=== PATIENT | male | born 1945 | race Caucasian/White ===

== ENCOUNTER 2017-09-24 08:19 | Emergency (ER) | payer MEDICARE, BC ==
--- OUTSIDE RECORDS SUMMARY | 2017-09-24 08:33 | XMS REPORT ---
:1945 External Reference #:[id number] Author Organization [facility] Address [address] [place] [address] Phone [phone] Care Team Providers Name Role Phone Mari Tolentino, N.P. 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 Primary Care Physician Unavailable Payers Type Date Identification Numbers Payment Provider Subscriber Medicare Primary Policy Number: [id number] Medicare Ethan Nieves PayID: [id number] [place] [address] Problems Date Description Provider Status Onset: 09/14/2017 Urge incontinence of urine Max Tam MD Active Onset: 09/14/2017 Nocturia Max Tam MD Active Onset: 09/14/2017 Raised prostate specific antigen Max Tam MD Active Family History Date Family Member(s) Problem(s) Comments Father Diabetes Mellitus I Social History Type Date Description Comments Marital Status Cigarette Use current cigarette smoker ETOH Use Occ Alcohol Intake Daily Caffeine Consumes on average 2 cups of coffee per day Daily Caffeine Consumes on average 2 cups of tea per day Allergies, Adverse Reactions, Alerts Date Description Reaction Status Severity Comments 09/14/2017 Baclofen active Per pt he stated he gets loopy 09/14/2017 Clarithromycin active unknown 09/14/2017 Moxifloxacin active unknown Medications Medication Date Status Form Strength Qnty SIG Indications Ordering Provider Aspirin / Active Tablets 325mg take 1 tablet Unknown 0000 (325 mg total) by mouth daily Plavix / Active Tablets 75mg 1 by mouth Unknown 0000 every day Prozac / Active Capsules 20mg 1 by mouth Unknown 0000 every day Super B Complex / Active Tablets 1 by mouth Unknown Maxi 0000 every day Vitamin D-400 / Active Tablets 400Unit daily Unknown 0000 Zinc 00/ Active Tablets 30mg daily Unknown 0000 [place]-3 / Active Capsules 1000mg 1-2 by mouth Unknown 0000 every day Acetaminophen / Active Tablets 650mg take 2 twice Unknown ER 0000 ER daily as needed Colace / Active Capsules 100mg 1 by mouth Unknown 0000 twice a day as needed for constipation Senna Laxative / Active Tablets 8.6mg 2 by mouth at Unknown 0000 bedtime as needed for constipation [place]ylands Leg / Active 1 tablet can Unknown Cramps PM 0000 take at bedtime as needed for leg cramps Nicotine / Active Patches 7mg/24HR place 1 patch Unknown Transdermal 0000 24HR on the skin System Step 3 daily Miralax / Active Packet 3350NF mix with 4 to Unknown 0000 8 oz of water daily as needed for constipation Nystatin / Active Cream 308154Njp apply to Unknown 0000 t/GM rashy areas twice a day as needed for itching/pain Vital Signs Date Vital Result Comment 09/14/2017 Height 72 inches 6'0" Weight 163.00 lb Weight in kg's 73.937 BMI (Body Mass Index) 22.1 kg/m2 BP Systolic 101 mmHg BP Diastolic 73 mmHg Heart Rate 67 /min Respiratory Rate 16 /min Post Void Residual ml 83 Results Test Date Test Result H/L Range Note Laboratory test finding 09/14/2017 PSA Free <pending> PSA Total <pending> Laboratory test finding 06/23/2017 PSA Total 4.600 High 0.000-4.000 Laboratory test finding 02/21/2016 PSA Total 2.360 0.000-4.000 Procedures Date CPT Code Description Status 09/14/2017 90629 Bladder Scan, Post Voiding Residual Urine Completed Plan of Care 09/14/2017 - Max Tam,MDR97.20 Elevated prostate specific antigen [PSA ]New Labs:PSA FreePSA TotalComments:Mild PSA elevation. I reviewed PSA reports and Courtney Tolentino's office note today. Potential PSA rise, PSA 2.3 in February 2016 and 4.6 last June. 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 Will perform exam w/MARIA ISABEL when patient's strength has returned to some degree, evaluate in 4mo. PSA free/total was drawn today, repeat in 4mo.R35.1 VccfejyaE82.41 Urge incontinenceComments:Rare urge incontinence, no retention by bladder scan today.AllFollow up:4mo w/PA, PSA free/total prior
--- OUTSIDE RECORDS SUMMARY | 2017-09-24 08:33 | XMS REPORT ---
:1945 External Reference #:[id number] Author Organization [facility] 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 Primary Care Physician Unavailable Payers Type Date Identification Numbers Payment Provider Subscriber Medicare Primary Policy Number: [id number] Medicare Ethan Nieves PayID: [id number] [address] [place] [address] Medigap Part B Effective: 2015 Policy Number: BCBS [place] Ethan Nieves [id number] PayID: [id number] [address] [address] [place] [address] Problems Date Description Provider Status Onset: 09/14/2017 [...] Active Tablets 400Unit daily Unknown 0000 Zinc / Active Tablets 30mg daily Unknown 0000 [place]-3 / Active Capsules 1000mg 1-2 by mouth [...] needed for constipation Nystatin / Active Cream 339427Hpq apply to Unknown 0000 t/GM rashy areas twice a day as needed for itching/pain Vital Signs Date Vital Result Comment 09/16/2017 Height 72 inches 6'0" Weight 150.00 lb Weight in kg's 68.040 BMI (Body Mass Index) 20.3 kg/m2 BP Systolic 103 mmHg BP Diastolic 74 mmHg Heart Rate 87 /min 09/14/2017 Height 72 inches 6'0" Weight 163.00 lb Weight in kg's 73.937 BMI (Body Mass Index) 22.1 kg/m2 BP Systolic 101 mmHg BP Diastolic 73 mmHg Heart Rate 67 /min Respiratory Rate 16 /min Post Void Residual ml 83 Results Test Date Test Result H/L Range Note Laboratory test finding 09/14/2017 Free PSA 0.6 ng/mL Total Psa Only 6.20 ng/mL High 0.00-4.00 % PSA 9.677 1 Laboratory test finding 06/23/2017 PSA Total 4.600 High 0.000-4.000 Laboratory test finding 02/21/2016 PSA Total 2.360 0.000-4.000 1 % Free PSA Range Probability of Prostate Cancer 0 - 10% 56% 10 - 15% 28% 15 - 20% 20% 20 - 25% 16% >25% 8% The % free PSA is an aid in distinguishing prostate cancer from a benign prostate condition in men with a PSA btween 4 and 10 ng/mL and a negative digital rectal examination; however, a prostate biopsy is required for diagnosis of prostate cancer. (KLAUS 1998: 279: 8215-9231) Procedures Date CPT Code Description Status 09/14/2017 39138 Bladder Scan, Post Voiding Residual Urine Completed Encounters Type Date Location Provider CPT E/M Dx Office Visit 09/16/2017 10:00a [place]/ [facility]MELISSA Allison [address]376 R97.20 Urology Office Visit 09/14/2017 11:20a [place]/ [facility].Jimmie Cervantes [address] R97.20 Urology MD Yonatan R35.1 N39.41 Plan of Care Future Appointment(s):11/19/2017 11:40 am - Max Tam MD at [place]/ A[facility] Ekoixqg15/02/2018 11:00 am - Max Tam MD at [place]/ A[facility] Auyqzvu4510/21/2017 10:00 am - [place] [facility] [place] Axqimcf6211/03/2017 1 :20 pm - Max Tam MD at [place]/ A[facility] Jswwdhl72/17/2018 10:40 am - [facility] Christopher at [place]/ A[facility] Zvxukcr93/10/2018 10:00 am - [place] [facility] [place] Lhxykab4209/16/2017 - Lindsay Mccullough,PAR97.20 Elevated prostate specific antigen [PSA]Comments:Advised pt per Dr. Tam's last note that we need to wait on prostate biopsy until he is safe to come off his anticoagulation given his recent stroke. Patient and daughter voiced understanding. He questions his options if prostate cancer is present. Options discussed in great depth today including active surveillance, Androgen Deprivation Therapy, radiation, cryotherapy, brachytherapy and prostatectomy. They are aware we can't have a great discussion on which might be advisable for him until we have a biopsy result. He will discuss the possible need to stop anticoagulation with his neurologist at his appt in October and get their opinion on what might be a safe timeline for him. All questionsaddressed to patient's satisfaction.AllFollow up:Mid-Late Oct appt with Dr. Terry to talk re options, psa total prior Late Oct-Nov appt for TRUS bx Please add Radha Giang (neuro) to DDCC Today's visit was over 30 minutes, over 50% of which involved face to face counseling regarding the following diagnosis: above.
[2017-09-24 08:43] VITALS: BP 100/71
--- NOTE | 2017-09-24 08:55 | UC ---
Respiratory Complaint HPI - HPI Summary HPI Summary: 72 y/o male presents to the ED with cold-like symptoms for several weeks. Pt c/ o productive cough with brown sputum. Associated sx: severe, constant L side chest pain starting 2 days ago, nasal congestion. The pain in the L side chest is aggravated with deep breaths and coughs, worse today than yesterday. PMHx CVA in June 2017. Pt on blood thinners. No history of blood clots. Pt's daughter states the pt had some mild leg cramping several weeks ago that resolved with massaging. This is scribe Ed Slime documenting for attending Dr. Max Rouse. I, Dr. Reed, personally performed the services described in this documentation as scribed in my presence and it is both accurate and complete. - History of Current Complaint Chief Complaint: UCRespiratory Stated Complaint: COUGH CONGESTION Time Seen by Provider: 09/24/17 08:49 Hx Obtained From: Patient Onset/Duration: Lasting Weeks Timing: Constant Pain Intensity: 5 Pain Scale Used: 0-10 Numeric Character: Cough: Productive - brown Aggravating Factors: Deep Breaths Alleviating Factors: Nothing Associated Signs And Symptoms: Positive: Nasal Congestion. Negative: Fever, Wheezing - Allergies/Home Medications Allergies/Adverse Reactions: Allergies Allergy/AdvReac Type Severity Reaction Status Date / Time baclofen Allergy confusion Verified 09/24/17 08:43 Home Medications: Home Medications Acetaminophen TAB* [Tylenol TAB*] 650 mg PO Q4H PRN 09/24/17 [History Confirmed 09/24/17] Aspirin TAB* [Aspirin 325 MG TAB*] 325 mg PO DAILY 09/24/17 [History Confirmed 09/24/17] Atorvastatin* [Lipitor*] 40 mg PO BEDTIME 09/24/17 [History Confirmed 09/24/17] Cholecalciferol (Vitamin D3) [D3] 400 unit PO DAILY 09/24/17 [History Confirmed 09/24/17] Clopidogrel TAB* [Plavix TAB*] 75 mg PO DAILY 09/24/17 [History Confirmed ] Docusate CAP* [Colace Cap*] 100 mg PO BID PRN 09/24/17 [History Confirmed ] Ezetimibe TAB* [Zetia TAB*] 10 mg PO BEDTIME 09/24/17 [History Confirmed ] FLUoxetine CAP* [PROzac CAP*] 20 mg PO DAILY 09/24/17 [History Confirmed ] Niacinamide [Niacin] 1,000 mg PO BEDTIME 09/24/17 [History Confirmed 09/24/17] Nicotine PATCH 7 MG/24 HR* 1 patch TRANSDERM DAILY PRN 09/24/17 [History Confirmed 09/24/17] Nystatin CREAM* 1 applic TOPICAL BID PRN 09/24/17 [History Confirmed 09/24/17] [place]-3 Fatty Acids/Fish Oil [[place] 3] 1 cap PO DAILY 09/24/17 [History Confirmed 09/24/17] Polyethylene Glycol 3350* [Miralax*] 17 gm PO DAILY PRN 09/24/17 [History Confirmed 09/24/17] Senna TAB* [Senokot TAB*] 2 tab PO BEDTIME PRN 09/24/17 [History Confirmed 09/24] Vitamin B Complex Vit C No.4 [Super B Complex] 150 mg PO DAILY 09/24/17 [ History Confirmed 09/24/17] Zinc Gluconate-Zinc Picolinate [Zinc] 30 mg PO DAILY 09/24/17 [History Confirmed 09/24/17] PMH/Surg Hx/FS Hx/Imm Hx Previously Healthy: No Endocrine History: Other Other Endocrine History: Negative: DM Cardiovascular History: Other Other Cardiovascular History: Negative: blood clots Neurological History: CVA - Surgical History Surgical History: None Surgery Procedure, Year, and Place: hernia - Family History Known Family History: Positive: Diabetes - father - Social History Alcohol Use: None Substance Use Type: None Smoking Status (MU): Never Smoked Tobacco Review of Systems Constitutional: Negative Skin: Negative Eyes: Negative ENT: Sinus Congestion Respiratory: Cough, Other - Negative: SOB Cardiovascular: Chest Pain - L side chest pain Gastrointestinal: Negative Genitourinary: Negative Motor: Negative Neurovascular: Negative Musculoskeletal: Negative Neurological: Negative Psychological: Negative All Other Systems Reviewed And Are Negative: Yes Physical Exam Triage Information Reviewed: Yes Appearance: Well-Appearing, No Pain Distress Vital Signs: Initial Vital Signs Temp 98 F 09/24/17 08:38 Pulse 77 09/24/17 08:38 Resp 16 09/24/17 08:38 BP 100/71 09/24/17 08:38 Pulse Ox 98 09/24/17 08:38 Vital Signs Reviewed: Yes ENT: Positive: Normal ENT inspection Neck: Positive: Supple, Nontender Respiratory: Positive: Lungs clear, Normal breath sounds, Other: - Cough Cardiovascular: Positive: RRR Abdomen Description: Positive: Nontender, Soft Bowel Sounds: Positive: Present Musculoskeletal: Positive: Strength Intact, ROM Intact, Other: - TTP L lateral ribs Neurological: Positive: Alert, Other: - R side hemiparesis, chronic Psychological: Positive: Age Appropriate Behavior Skin Exam: Normal Skin: Positive: Other - No rash UC Diagnostic Evaluation - Laboratory O2 Sat by Pulse Oximetry: 98 - Radiology Xray Interpretation: Positive (See Comments) - See course Radiology Interpretation Completed By: Radiologist Re-Evaluation - Re-Evaluation 1 Re-Evaluation Time: 21:45 Comment: Discuss XR, plan of care Respiratory Course/Dx - Course Course Of Treatment: CXR shwos Hyperinflated lung childers consistent with COPD. In the left lateral lung field there is ill-defined density which may represent pneumonia although underlying mass is not excluded. Follow-up exam is suggested. DISCUSSED X-RAY RESULTS WITH THE PATIENT AND HIS DAUGHTER TO INCLUDE THE POSSIBILITY OF AN UNDERLYING LUNG MASS. RX LEVAQUIN AND F/U PMD WITHIN ONE WEEK. RE IMAGE WITH CXR OR CHEST CT. GO TO ED IF WORSE. - Differential Dx/Diagnosis Provider Diagnoses: PNEUMONIA Discharge - Sign-Out/Discharge Documenting (check all that apply): Patient Departure - Discharge Plan Condition: Stable Disposition: HOME Prescriptions: Levofloxacin TAB* [Levaquin TAB*] 750 mg PO DAILY #7 tab Patient Education Materials: Community Acquired Pneumonia (ED) Referrals: Mari Tolentino NP [Primary Care Provider] - Additional Instructions: FOLLOW UP WITH YOUR DOCTOR WITHIN ONE WEEK. DISCUSS REPEAT IMAGING, A CHEST X-RAY OR CT, WITH YOUR DOCTOR TO ENSURE THE CHEST X-RAY FINDINGS IMPROVE. GO TO THE EMERGENCY DEPARTMENT FOR ANY WORSENING OF YOUR CONDITION OR QUESTIONS OR CONCERNS. - Billing Disposition and Condition Condition: STABLE Disposition: Home
--- NOTE | 2017-09-24 09:28 | RAD ---
Indication: Left-sided chest pain. 2 views of the chest are reviewed. Dual-energy PA views are reviewed. Comparison is made with previous exams dated May 29, 2002. Hyperinflated lung childers are noted. There is likely chronic interstitial disease noted. There is a Gildardo's a device overlying the left chest. In the mid left lateral lung field there is ill-defined density noted in the mid left lung field. This may represent pneumonia although underlying mass is not totally excluded. IMPRESSION: Hyperinflated lung childers consistent with COPD. In the left lateral lung field there is ill-defined density which may represent pneumonia although underlying mass is not excluded. Follow-up exam is suggested.
== END 2017-09-24 10:00 | disposition home or self-care (01) ==
LOC: UCEAST 08:19
DX: J18.9 Pneumonia, unspecified organism (principal); Z88.8 Allergy status to other drugs, medicaments and biological substances
CPT/HCPCS: 71046; 99202; G0463

== ENCOUNTER 2017-09-30 13:22 | Emergency (ER) | payer MEDICARE, BC ==
[2017-09-30 13:34] VITALS: BP 111/76
--- NOTE | 2017-09-30 14:21 | RAD ---
Indication: Cough, follow-up pneumonia. 2 views of the chest are reviewed and compared to previous exam dated September 24, 2017. A cardiac event monitor is in place. No mediastinal shift is noted. Hyperinflated lung childers are noted. Persistent airspace disease in the left midlung Field is unchanged from previous exam. CT of the chest should BE considered. IMPRESSION: Left midlung field infiltrate still persists.
--- NOTE | 2017-09-30 14:22 | UC ---
Respiratory Complaint HPI - HPI Summary HPI Summary: treated with Levaquin about 10 days ago ---patient continues with cough dark sputum and subjective SOB no fevers - History of Current Complaint Chief Complaint: UCRespiratory Stated Complaint: COUGH Time Seen by Provider: 09/30/17 13:51 Hx Obtained From: Patient Onset/Duration: Gradual Onset, Lasting Weeks, Still Present Timing: Constant Pain Intensity: 0 Character: Cough: Productive, Sputum Description: - bown Aggravating Factors: Nothing Alleviating Factors: Nothing Associated Signs And Symptoms: Positive: Pleuritic Chest Pain, URI - Allergies/Home Medications Allergies/Adverse Reactions: Allergies Allergy/AdvReac Type Severity Reaction Status Date / Time baclofen Allergy confusion Verified 09/30/17 13:34 clarithromycin Allergy Rash Verified 09/30/17 13:35 moxifloxacin Allergy Rash Verified 09/30/17 13:35 PMH/Surg Hx/FS Hx/Imm Hx Previously Healthy: No Endocrine History: Dyslipidemia Psychological History: Depression - Surgical History Surgical History: None Surgery Procedure, Year, and Place: hernia - Family History Known Family History: Positive: Diabetes - father - Social History Occupation: Retired Lives: With Family Alcohol Use: None Substance Use Type: None Smoking Status (MU): Former Smoker Review of Systems Constitutional: Negative Skin: Negative Eyes: Negative ENT: Negative Respiratory: Shortness Of Breath, Cough Cardiovascular: Negative Gastrointestinal: Negative Genitourinary: Negative Motor: Negative Neurovascular: Negative Musculoskeletal: Negative Neurological: Negative Psychological: Negative Is Patient Immunocompromised?: No All Other Systems Reviewed And Are Negative: Yes Physical Exam Triage Information Reviewed: Yes Appearance: Well-Appearing, No Pain Distress, Thin Vital Signs: Initial Vital Signs Temp 97.8 F 09/30/17 13:30 Pulse 63 09/30/17 13:30 Resp 15 09/30/17 13:30 BP 111/76 09/30/17 13:30 Pulse Ox 100 09/30/17 13:30 Vital Signs Reviewed: Yes Eye Exam: Normal Eyes: Positive: Conjunctiva Clear ENT Exam: Normal ENT: Positive: Normal ENT inspection, Hearing grossly normal. Negative: Trismus , Muffled voice, Hoarse voice Dental Exam: Normal Neck exam: Normal Neck: Positive: Supple, Nontender Respiratory Exam: Normal Respiratory: Positive: Chest non-tender, Lungs clear, Normal breath sounds, No respiratory distress, No accessory muscle use Cardiovascular Exam: Normal Cardiovascular: Positive: RRR, No Murmur, Pulses Normal, Brisk Capillary Refill Musculoskeletal Exam: Normal Musculoskeletal: Positive: Strength Intact, ROM Intact, No Edema Neurological Exam: Normal Neurological: Positive: Alert, Muscle Tone Normal Psychological Exam: Normal Skin Exam: Normal UC Diagnostic Evaluation - Laboratory O2 Sat by Pulse Oximetry: 100 - Radiology Xray Interpretation: Positive (See Comments) Radiology Interpretation Completed By: ED Physician, Radiologist - Patient Name : ELKE THORNE V Medical Record#: [id number] Respiratory Course/Dx - Course Course Of Treatment: follow with Mari Tolentino at 9:45 as planned--- to ED for acute increase in symptoms/SOB - Differential Dx/Diagnosis Provider Diagnoses: SOB, continued LML infiltrate Discharge - Sign-Out/Discharge Documenting (check all that apply): Patient Departure All imaging exams completed and their final reports reviewed: Yes - Discharge Plan Condition: Fair Disposition: HOME Patient Education Materials: Shortness of Breath (ED) Referrals: Mari Tolentino NP [Primary Care Provider] - 10/01/17 9:45 am - Billing Disposition and Condition Condition: FAIR Disposition: Home
== END 2017-09-30 14:45 | disposition home or self-care (01) ==
LOC: UCEAST 13:22
DX: R06.02 Shortness of breath (principal); R05 Cough; R91.8 Other nonspecific abnormal finding of lung field; Z88.0 Allergy status to penicillin; Z88.1 Allergy status to other antibiotic agents; Z87.891 Personal history of nicotine dependence
CPT/HCPCS: 71046; 99211; G0463

== ENCOUNTER 2017-10-28 21:24 | Emergency (ER) | payer MEDICARE, BC ==
--- OUTSIDE RECORDS SUMMARY | 2017-10-28 21:37 | XMS REPORT | Continuity of Care Document ---
:1945 Author Organization [facility] Care Team Providers Name Role Phone YAMINI LUNA Admitting Physician YAMINI LUNA Attending Physician Allergies and Intolerances Code Code System Allergy Type Reaction Severity Start End Date Status Substance Date 20360320 RXNorm Biaxin Drug Unknown Active allergy (disorder) 399743 RXNorm Avelox Drug Unknown Active allergy (disorder) Medications RxNorm Medication Dose Route Instructions Start Date End Date Status 21190412 Aspirin 325 MG Oral 325 mg oral orally every day Active Tablet 2418 Cholecalciferol 400 unit oral orally every day Active 701501 clopidogrel 75 MG 75 mg oral orally every day Active Oral Tablet 949690 ezetimibe 10 MG / 1 tab oral orally every day Active Simvastatin 40 MG Oral Tablet 7393 Niacin 1000 mg oral orally every day Active at bedtime (do not break, crush, or chew tablet(s)) 709158 [place]-3 Acid Ethyl 1 g oral orally 2 times Active Esters (GROUP HOME) 1000 MG per day Oral Capsule Super Beta Prostate 2 tablets oral orally every day Active Vitamin B Complex 1 tab oral orally every day Active (administer with a meal) Zinc 30 mg oral orally every day Active Problems Code Code System Problem Name Start Date End Date Status 32310168 SNOMED-CT Hypertensive disorder U Active 96762586 SNOMED-CT Diabetes mellitus U Active 519405950 SNOMED-CT Backache U Active HX TONGUE CANCER U Active Procedures Code Code System Procedure Date MEDIPORT U Results Laboratory Results Order: COMPREHENSIVE PANEL Specimen Source : Body Site: Legend: (G,H)=High, (GG,HH,CH,#H)=Above High Threshold, (#,L)=Low, (##,CL,#L,LL)=Below Low Threshold, (C,CC,CA,#A,A)=Abnormal LOINC Test Result Flag Range Units Date 2951-2 1Sodium SerPl-sCnc 134 L 136-145 mmol/L 10/07/2017 08:21 2823-3 1Potassium SerPl-sCnc 4.4 3.5-5.2 mmol/L 10/07/2017 08:21 5-0 1Chloride SerPl-sCnc 100 100-108 mmol/L 10/07/2017 08:21 8-9 1CO2 SerPl-sCnc 25 21-32 mmol/L 10/07/2017 08:21 2345-7 1Glucose SerPl-mCnc 112 H 70-100 mg/dL 10/07/2017 08:21 3094-0 1BUN SerPl-mCnc 13 7-21 mg/dL 10/07/2017 08:21 2160-0 1Creat SerPl-mCnc 0.9 0.6-1.3 mg/dL 10/07/2017 08:21 Interpretive Elly: 1Normal Kidney Function or Mild Disease - GFR >OR=60 Chronic Kidney Disease - GFR 15-59 Renal Failure - GFR < 15 GFR not calculated on patients under 18 years of age. Calculated (estimated) GFR is based on the MDRD Study equation, which assumes a steady state for creatinine. Estimated GFR may not be appropriate for medication dosing. 22450-4 1Ca-I SerPl-mCnc 9.3 8.5-10.8 mg/dL 10/07/2017 08:21 00285-1 1GFR/BSA.pred SerPl-ArVRat >60 10/07/2017 08:21 40370-1 1Bilirub Bld-mCnc 0.5 0.0-1.2 mg/dL 10/07/2017 08:21 2885-2 1Prot SerPl-mCnc 6.5 6.4-8.2 gm/dL 10/07/2017 08:21 1751-7 1Albumin SerPl-mCnc 3.4 3.2-4.6 gm/dL 10/07/2017 08:21 6768-6 1ALP SerPl-cCnc 79 40-150 U/L 10/07/2017 08:21 1742-6 1ALT SerPl-cCnc 86 H 0-55 U/L 10/07/2017 08:21 1920-8 1AST SerPl-cCnc 79 H 5-37 U/L 10/07/2017 08:21 Performing Lab Footnotes:[facility] - [id number] - [address] [place] [address] SHABNAM HERRERA Social History Code Code System Social History Description Dates Observed Observation 216225061 SNOMED CT Current Smoking Unknown if ever Status smoked UNK AdministrativeGender Sex Assigned At Unknown Vital Signs No data in the system Goals Section No data in the system Health Concerns No data in the systemEncounter Diagnosis Date Code Code System Diagnosis Status I63.9 ICD10 CEREBRAL INFARCTION UNSPECIFIED Active Advance Directives *RHIO - CONSENT IS YES Directive Type Effective Date News Department Intern Notes Supporting Document Name Address Phone No Directive Type 05/09/2017 8:39:39 Not Specified Not Specified Not Specified None No specified [facility] Directive Type Effective Date News Department Intern Notes Supporting Document Name Address Phone No Directive 12/09/2011 Not Specified Not Specified Not Specified wilfred copeland Yes Type 9:02:00 AM [phone] and specified kieran pride [phone] Family History No data in the system Functional Status No data in the system Immunizations No data in the system Medical Equipment Implants Implanted Date Implant Site LC 12/09/2011 bard mesh perfix plug right inguinal hernis Mental Status No data in the system Assessment and Plan Assessments No data in the systemPlan Of Treatment No data in the systemPending Tests No data in the system Hospital Discharge Instructions No data in the system Reason for Visit No data in the system
--- OUTSIDE RECORDS SUMMARY | 2017-10-28 21:37 | XMS REPORT ---
:1945 External Reference #:[id number] Author Organization [employer] Address [address] [place] [address] [address] [place] [address] Phone [phone] Care Team Providers Name Role Phone Mari Tolentino NP Primary Care Physician Unavailable Payers Type Date Identification Numbers Payment Provider Subscriber Medicare Primary Policy Number: [id number] Medicare Ethan Nieves PayID: [id number] [address] [place] [address] [facility] Part [facility] Policy Number: [id number] BS Facets Ethan Nieves PayID: [id number] [address] [address] [place] [address] Problems Description No Information Family History Date Family Member(s) Problem(s) Comments Father due to Diabetes () Mother due to Cancer () Siblings 2 Social History Type Date Description Comments Marital Status Lives With Grandson,Daughter, Sons girlfriend Occupation Retired ETOH Use Rarely consumes alcohol Smoking Patient is a former smoker Smoked on and off. Quit July Recreational Drug Use Never Used Drugs Daily Caffeine Consumes on average 1 cup of regular coffee per day Daily Caffeine Consumes on average 8oz of soda per day Exercise Type/Frequency Exercises regularly Allergies, Adverse Reactions, Alerts Date Description Reaction Status Severity Comments 10/16/2017 Baclofen active 10/16/2017 Moxifloxacin active 10/16/2017 Clarithromycin active Medications Medication Date Status Form Strength Qnty SIG Indications Ordering Provider Plavix Active Tablets 75mg 30tabs 1 by Unknown 000 mouth every morning Prozac 0 Active Capsules 20mg 90caps 1 by Unknown 000 mouth every morning Super B Active Tablets 1 tab by Unknown Complex 000 mouth every morning Vitamin D-3 Active 400Iu 1 tab by Unknown 000 mouth every morning [place]-3 Active Capsules 1gm 1 tab by Unknown 000 mouth every morning Zinc Active 30mg 1 tab by Unknown 000 mouth every morning Vytorin/Atorv Active 40/10 mg 1 tab by Unknown astatin&Zetia 000 mouth at bedtime Niacin Active Tablets 500mg 2 tabs by Unknown 000 mouth at bedtime Tablets Active Tablets ER 650mg 1 tab Unknown 000 every 6 hours as needed Stool Active Capsules 100mg 1 by Unknown Softener 000 mouth 2 times daily as needed Senokot Active 2 tab by Unknown 000 mouth at bedtime as needed Alberto"S Leg Active 1 tab by Unknown Cramps PM 000 mouth at bedtime as needed Nicotine Active Patches 7mg/24HR 1 patch Unknown 000 24HR daily as needed Miralax Active Packet 3350NF 17 grams Unknown 000 with 8oz of water once a day as needed Nystatin-Tria Active twice a Unknown mcinolone 000 day as needed Vital Signs Date Vital Result Comment 10/16/2017 Height 72 inches 6'0" Weight 160.00 lb Heart Rate 66 /min Respiratory Rate 16 /min O2 % BldC Oximetry 94 % BMI (Body Mass Index) 21.7 kg/m2 Results Description No Information Procedures Description No Information Plan of Care Future Appointment(s):12/01/2017 10:00 am - Bib[facility]os [facility]10/16/2017 - Bibi Llanos MDJ98.4 Other disorders of lungNew Xrays:PET/Ctroutine Skull/Thigh IniFollow up:6 weeks with PET [id number] Chronic obstructive pulmonary disease, [id number] Personal history of nicotine dependence
[2017-10-28] MEDS ORDERED: NS 0.9% 1000 ML* 1,000 ML IV ONE (22:25)
[2017-10-28] MEDS ORDERED: LORazepam INJ* 2 MG/ML 1 ML VIAL IV PUSH ONE (22:25)
--- NOTE | 2017-10-28 22:55 | ED ---
Neurological HPI - HPI Summary HPI Summary: The pt is a 73 y.o male who is presenting to the [facility] with a chief complaint of right foot spasms. The pt has a hx of a stroke on the right side. PT denies right leg pain, however, upon pressure, the pt reports pain at the right foot. No high BP noted by the pt. 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 The spasms were described to be involuntary and frequent as well as unpredictable. Symptoms aggravated by palpation to the right foot and alleviated by nothing. The pt denies chest pain and SOB. He requires assistance (a walker) to walk. - History of Current Complaint Chief Complaint: EDExtremityLower Stated Complaint: RT LEG PAIN Time Seen by Provider: 10/28/17 22:11 Hx Obtained From: Patient Onset/Duration: Sudden Onset, Still Present Pain Intensity: 2 Pain Scale Used: 0-10 Numeric Character: Other: - Involuntary muscle spasms at the right foot Alleviating: Nothing Associated Signs and Symptoms: Negative: Chest Pain, Shortness of Breath - Allergy/Home Medications Allergies/Adverse Reactions: Allergies Allergy/AdvReac Type Severity Reaction Status Date / Time baclofen Allergy confusion Verified 09/30/17 13:34 clarithromycin Allergy Rash Verified 09/30/17 13:35 moxifloxacin Allergy Rash Verified 09/30/17 13:35 PMH/Surg Hx/FS Hx/Imm Hx Endocrine/Hematology History: Denies: Hx Diabetes Cardiovascular History: Reports: Other Cardiovascular Problems/Disorders Denies: Hx Hypertension Respiratory History: Denies: Hx Asthma, Hx Chronic Obstructive Pulmonary Disease (COPD), Other Respiratory Problems/Disorders History: Denies: Hx Renal Disease Neurological History: Reports: Hx CVA - Right side - Cancer History Cancer Type, 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 stents in leg Infectious Disease History: No Infectious Disease History: Denies: Traveled Outside the [place] in Last 30 Days - Family History Known Family History: Positive: Diabetes - father Family History: Other family history reviewed and noncontributory - Social History Alcohol Use: None Substance Use Type: Reports: None Hx Tobacco Use: No Smoking Status (MU): Former Smoker Review of Systems Constitutional: Negative Eyes: Negative ENT: Negative Negative: Chest Pain Negative: Shortness Of Breath Gastrointestinal: Negative Genitourinary: Negative Musculoskeletal: Other - Right foot pain upon spasm Skin: Negative Neurological: Other - Involuntary muscle spasms at the right foot Psychological: Normal All Other Systems Reviewed And Are Negative: Yes Physical Exam - Summary Physical Exam Summary: Appearance: Well appearing, no pain distress Skin: warm, dry, reflects adequate perfusion Head/face: normal Eyes: EOMI, MITRA ENT: mucous membranes moist Neck: supple, non-tender Respiratory: Occasional crackle in right lung Cardiovascular: RRR, pulses symmetrical Abdomen: non-tender, soft Bowel Sounds: present Musculoskeletal: Contracture of right upper extremity right hand, No peripheral edema Neuro: Spasm in dorsal flexion of his toe and foot upon Plantar pressure on toes , Involuntary muscle contraction normal light touch sensation Triage Information Reviewed: Yes Vital Signs On Initial Exam: Initial Vitals Pulse Resp Pulse Ox 65 20 97 10/28/17 21:32 10/28/17 21:32 10/28/17 21:32 Vital Signs Reviewed: Yes Diagnostics - Vital Signs Vital Signs Temp Pulse Resp BP Pulse Ox 10/28/17 22:02 62 21 121/72 96 10/28/17 22:00 62 24 96 10/28/17 21:46 97.7 F 62 23 123/72 97 10/28/17 21:33 64 18 132/71 96 10/28/17 21:32 65 20 97 - Laboratory Result Diagrams: 10/28/17 22:42 10/28/17 22:42 Lab Statement: Any lab studies that have been ordered have been reviewed, and results considered in the medical decision making process. Course/Dx - Course Course Of Treatment: Patient with a history of CVA affecting the right side of his body with prior mild clonus. His magnesium is noted to be significantly low here. This was replaced. He had little improvement prior to replacement with Ativan, IV hydration. He was given morphine and cyclobenzaprine as well with improvement. He is discharged in much improved condition. - Differential Dx Differential Diagnoses Neuro: Positive: Hypovolemia, Metabolic Abnormality, Sprain - Diagnoses Provider Diagnoses: Hypomagnesemia, Myoclonus, Muscle spasm Discharge - Sign-Out/Discharge Documenting (check all that apply): Patient Departure - Patient discharged home - Discharge Plan Condition: Stable Disposition: HOME Prescriptions: Cyclobenzaprine TAB* [Flexeril 10 MG TAB*] 10 mg PO TID PRN #12 tab PRN Reason: muscle spasm Magnesium Oxide TAB* [MagOx 400 TAB*] 400 mg PO BID #30 tab Patient Education Materials: Hypomagnesemia (ED), Muscle Spasm (ED) Referrals: Mari Tolentino, [employer] [employer] [Primary Care Provider] - Additional Instructions: Stay well-hydrated. Magnesium replacement. Call your doctor first thing in the morning to schedule prompt follow-up. Return if worse, persistent symptoms , new symptoms or other concerns. Massage and modest activity may help. - Billing Disposition and Condition Condition: STABLE Disposition: Home - Attestation Statements Document Initiated by Scribe: Yes Documenting Scribe: Matias Alfred Provider For Whom Scribe is Documenting (Include Credential): Dr. Rubin Scribe Attestation: Matias Pleitez, scribed for Dr. Rubin on 10/29/17 at 0534. Scribe Documentation Reviewed: Yes Provider Attestation: The documentation as recorded by the Matias rouse accurately reflects the service I personally performed and the decisions made by Dr. Scottie zavala
[2017-10-28 22:56] LABS: ABS Basophils 0.1 10^3/ul (0-0.2); ABS Eosinophils 0.2 10^3/ul (0-0.6); ABS Monocytes 1.1 10^3/ul (0-0.8); ABS Neutrophils 7.6 10^3/ul (1.5-7.7); ABS Nucleated RBC 0 10^3/ul; Hematocrit 33 % (42-52); Hemoglobin 11.1 g/dl (14.0-18.0); Lymphocyte % 9.9 % (25-47); Mean Corpuscular HGB Conc 34 g/dl (31-36); Mean Corpuscular Hemoglobin 35 pg (27-31); Mean Corpuscular Volume 102 fL (80-94); Mean Platelet Volume 7.3 um3 (7.4-10.4); Nucleated Red Blood Cells % 0; Platelet Count 402 10^3/ul (150-450); Red Blood Count 3.18 10^6/ul (4.00-5.40); Red Cell Distribution Width 13 % (10.5-15)
[2017-10-28 23:05] LABS: EGFR Non-African American 68.1 (>60)
[2017-10-28] MEDS ORDERED: Morphine INJ** 4 MG/ML 1 ML CARPUJECT IV ONE (23:20)
[2017-10-28] MEDS ORDERED: Cyclobenzaprine TAB* 10 MG PO ONE (23:21)
[2017-10-28] MEDS ORDERED: Morphine INJ* 2 MG/ML 1 ML SYRINGE (TWO MG - NEW SYRINGE VERSION) ONE (23:59)
[2017-10-29] MEDS ORDERED: Magnesium Sulfate 1 GM IV* 1 GM/100 ML BAG IV ONE (00:48)
[2017-10-29] MEDS ORDERED: NS 0.9% 1000 ML* 1,000 ML IV ONE (01:18)
[2017-10-29 01:59] VITALS: BP 106/69
== END 2017-10-29 02:17 | disposition home or self-care (01) ==
LOC: ED 21:24
DX: E83.42 Hypomagnesemia (principal); G25.3 Myoclonus; M62.838 Other muscle spasm; Z86.73 Personal history of transient ischemic attack (TIA), and cerebral infarction without residual deficits; Z85.89 Personal history of malignant neoplasm of other organs and systems; Z87.891 Personal history of nicotine dependence; Z88.3 Allergy status to other anti-infective agents
CPT/HCPCS: 36415; 80048; 82550; 83735; 84100; 85025; 96361; 96374; 96375; 99283; A9270-GY; J2060; J2270; J3475

== ENCOUNTER → 2017-12-16 11:34 | Day surgery (SDC) | payer MEDICARE, BC ==
[~2017-12-16 11:34] MED LIST: Acetaminophen TAB* 325 MG PO PRN; Buffered Lidocaine 0.9% SYRIN* 5 ML/SYR SYRINGE INTRADERM ONE; Dexamethasone IV* 4 MG/ML 1 ML (4 MG) IV SLOW PU ONE; Dexamethasone IV* 4 MG/ML 1 ML (4 MG) ONE; DiMENhydriNATE IV* 50 MG/ML VIAL IV PUSH PRN; Etomidate* 2 MG/ML 10 ML VIAL ONE; Famotidine IV* 10 MG/ML 2 ML (20 mg) IV ONE; Famotidine IV* 10 MG/ML 2 ML (20 mg) ONE; Labetalol IV* 5 MG/ML 20 ML VIAL IV PUSH PRN; Labetalol IV* 5 MG/ML 20 ML VIAL ONE; Lidocaine 2% PF * 5 ML VIAL ONE; Midazolam* 1 MG/ML 2 ML VIAL (2 MG) ONE; Naloxone* 0.4 MG/ML 1 ML VIAL IV PRN; Ondansetron INJ* 2 MG/ML VIAL ONE; PROCHLORPERAZINE INJ 5 MG/ML 2 ML VIAL IV PRN; Phenylephrine INJ* 10 MG/ML 1 ML VIAL (10 MG) ONE; Propofol* 10 MG/ML 20 ML BTL IV PUSH ONE; Rocuronium* 10 MG/ML VIAL ONE; Sugammadex * 200 MG/2 ML VIAL IV PUSH ONE; fentaNYL* 50 MCG/ML 2 ML VIAL (100 MCG VIAL) ONE; hydrALAZINE IV* 20 MG/ML VIAL IV SLOW PU PRN
[2017-12-16 12:32] LABS: Hematocrit 34 % (42-52); Hemoglobin 11.6 g/dl (14.0-18.0); Mean Corpuscular HGB Conc 34 g/dl (31-36); Mean Corpuscular Hemoglobin 35 pg (27-31); Mean Corpuscular Volume 101 fL (80-94); Mean Platelet Volume 7.1 fL (7.4-10.4); Platelet Count 410 10^3/ul (150-450); Red Blood Count 3.35 10^6/ul (4.00-5.40); Red Cell Distribution Width 15 % (10.5-15); White Blood Count 10.7 10^3/ul (3.5-10.8)
[2017-12-16 12:34] LABS: EGFR Non-African American 78.2 (>60)
[2017-12-16 18:33] VITALS: BP 100/70
--- NOTE | 2017-12-17 08:35 | PRO ---
BRONCHOSCOPY REPORT: DATE OF PROCEDURE: 12/16/17. PROCEDURE PERFORMED: Bronchoscopy with endobronchial ultrasound guided fine needle aspiration of mediastinal and hilar nodes. PREPROCEDURAL DIAGNOSIS: Lung infiltrates, PET positive lymph nodes. ANESTHESIA: General anesthesia. PROCEDURE IN DETAIL: Informed consent was obtained from the patient prior to the procedure after all the risks and benefits were thoroughly explained. The patient was supine on operating room table. A flexible Olympus bronchoscope was inserted through ET tube for airway inspection. Thick yellow, purulent secretions were noted on both sides and were suctioned. No endobronchial lesions were noted. Bronchoscope was then withdrawn and EBUS bronchoscope was then inserted. Station 7 lymph node was enlarged and was accessed with 4 passes. Rapid on-site evaluation revealed lymphatic tissue, no malignant cells were noted. L10 was sampled with 4 passes also. Lymphatic tissue was seen. No malignant cells noted. L4 was accessed with 3 passes. Lymphatic tissue seen. No malignant cells noted. R4 was accessed with 2 passes. Lymphatic tissue was noted. No malignant cells noted. Bronchoalveolar lavage was also obtained from the left lung and was sent for microbiological and cytological examination. The patient tolerated the procedure well. The patient extubated and seen in Recovery in optimal condition. [id number] #: [id number] [facility]
== END | disposition home or self-care (01) ==
LOC: OR 11:34
PROVIDERS: ATTEND Internal Medicine
DX: J98.4 Other disorders of lung (principal); J44.9 Chronic obstructive pulmonary disease, unspecified; Z87.891 Personal history of nicotine dependence; I25.10 Atherosclerotic heart disease of native coronary artery without angina pectoris; Z85.89 Personal history of malignant neoplasm of other organs and systems; I10 Essential (primary) hypertension; E78.5 Hyperlipidemia, unspecified; Z79.01 Long term (current) use of anticoagulants; Z86.73 Personal history of transient ischemic attack (TIA), and cerebral infarction without residual deficits
CPT/HCPCS: 36415; 80048; 85027; 86850; 86900; 86901; 87070; 87077; 87102; 87116; 87186; 87205; 87206; 88172; 88173; 88177; 88184; 88185; 88187; 88188; 88189; 88305; J1100; J2250; J2405; J2704; J3010

== ENCOUNTER 2018-02-04 17:08 | Inpatient (IN) | payer MEDICARE, BC ==
--- OUTSIDE RECORDS SUMMARY | 2018-02-04 17:21 | XMS REPORT | Continuity of Care Document ---
:1945 External Reference #:[id number] Author Name Mildred Nunes Care Team Providers Name Role Phone Mari Tolentino NP Primary Care Physician Unavailable Payers Type Date Identification Numbers Payment Provider Subscriber Policy Number: [id number] Medicare Elke Thorne PayID: [id number] [address] [place] [address] Policy Number: [id number] BS [employer]ets Elke Thorne PayID: [id number] [address] [address] [place] [address] Advance Directives Description No Information Available Problems Description No Information Family History Date Family Member(s) Problem(s) Comments Father due to Diabetes () Mother due to Cancer () Siblings 2 Social History Type Date Description Comments Sex Unknown Marital Status Lives With Grandson,Daughter, Sons girlfriend Occupation Retired Tobacco Use Start: Unknown End: Former Cigarette Smoker Unknown Smoking Status Reviewed: 01/07/18 Former Cigarette Smoker ETOH Use Rarely consumes alcohol Tobacco Use Start: Unknown End: Patient is a former Smoked on and off. Unknown smoker Quit July Recreational Drug Use Never Used Drugs Exercise Type/Frequency Exercises regularly Allergies, Adverse Reactions, Alerts Date Description Reaction Status Severity Comments 10/16/2017 Baclofen Active 10/16/2017 Moxifloxacin Active 10/16/2017 Clarithromycin Active Medications Medication Date Status Form Strength Qnty SIG Indications Ordering Provider Doxycycline 01/05/ Active Capsules 100mg 14cap one Bibi Hyclate 2018 s tablet Romi, twice MD daily for 7 days. Albuterol Sulfate 10/16/ Active Nebulizer (2.5mg/3ML 150ml 1 unit Bibi 2017 ) 0.083% nebl Romi, every 6 MD hours as needed Plavix / Active Tablets 75mg 30tab 1 by Unknown 0000 s mouth every morning Prozac / Active Capsules 20mg 90cap 1 by Unknown 0000 s mouth every morning Super B Complex / Active Tablets 1 tab by Unknown 0000 mouth every morning Vitamin D-3 / Active 400Iu 1 tab by Unknown 0000 mouth every morning [place]-3 / Active Capsules 1gm 1 tab by Unknown 0000 mouth every morning Zinc / Active 30mg 1 tab by Unknown 0000 mouth every morning Vytorin/Atorvasta / Active 40/10 mg 1 tab by Unknown tin&Zetia 0000 mouth at bedtime Niacin / Active Tablets 500mg 2 tabs Unknown 0000 by mouth at bedtime Tablets / Active Tablets ER 650mg 1 tab Unknown 0000 every 6 hours as needed Stool Softener / Active Capsules 100mg 1 by Unknown 0000 mouth 2 times daily as needed Senokot / Active 2 tab by Unknown 0000 mouth at bedtime as needed Alberto"S Leg / Active 1 tab by Unknown Cramps PM 0000 mouth at bedtime as needed Nicotine / Active Patches 7mg/24HR 1 patch Unknown 0000 24HR daily as needed Miralax / Active Packet 3350NF 17 grams Unknown 0000 with 8oz of water once a day as needed Nystatin-Triamcin / Active twice a Unknown olone 0000 day as needed Magnesium Oxide / Active Tablets 400(241.3M Take One Unknown 0000 g) mg Tablet By Mouth Twice A Day Cyclobenzaprine / Active Tablets 10mg Take One Unknown HCL 0000 Tablet By Mouth Three Times A Day as Needed For Muscle Spasm Immunizations Description No Information Available Vital Signs Date Vital Result Comment 01/07/2018 2:29pm Height 72 inches 6'0" Weight 160.00 lb Heart Rate 72 /min BP Systolic Sitting 116 mmHg Lue regular cuff BP Diastolic Sitting 80 mmHg Lue regular cuff Respiratory Rate 12 /min BMI (Body Mass Index) 21.7 kg/m2 11/26/2017 11:51am Height 72 inches 6'0" Weight 166.00 lb Heart Rate 72 /min BP Systolic Sitting 118 mmHg BP Diastolic Sitting 68 mmHg Respiratory Rate 14 /min O2 % BldC Oximetry 97 % BMI (Body Mass Index) 22.5 kg/m2 10/16/2017 1:48pm Height 72 inches 6'0" Weight 160.00 lb Heart Rate 66 /min Respiratory Rate 16 /min O2 % BldC Oximetry 94 % BMI (Body Mass Index) 21.7 kg/m2 Results Test Date Facility Test Result H/L Range Note Body Fluid C&S 12/16/2017 [facility] Body Fluid Cult SEE RESULT [address] Gram Stain BELOW [place], [place] [id number] [phone] Acid Fast 12/16/2017 [facility] Acid Fast SEE RESULT 2 Culture & Smear [address] Culture Smear [place]OW [place], [place] [id number] [phone] Laboratory test 12/16/2017 [facility] Fungal Cult SEE RESULT [address] Other Sources [place]OW [place], [place] [address] [phone] Laboratory test 12/16/2017 [facility] Fungal Cult SEE RESULT [address] [place] [address] [phone] Leukemia/Lymphom 12/16/2017 [facility] Path Interpret (SEE NOTE ) 5 a Flow [address] 9-[address] [place], [place] [address] [phone] Laboratory test 12/16/2017 [facility] Cytology SEE RESULT [address] Non-[place] [address] [phone] CBC No Diff 12/16/2017 [facility] White Blood 10.7 10^3/uL N 3.5-10.[address] [place] [address] [phone] Red Blood Count 3.35 10^6/uL Low 4.00-5.40 Hemoglobin 11.6 g/dL Low 14.0-18.0 Hematocrit 34 % Low 42-52 Mean Corpuscular Volume 101 fL High 80-94 Mean Corpuscular Hemoglobin 35 pg High 27-31 Mean Corpuscular HGB Conc 34 g/dL N 31-36 Red Cell Distribution Width 15 % N 10.5-15 Platelet Count 410 10^3/uL N 150-450 Mean Platelet Volume 7.1 fL Low 7.4-10.4 Basic Metabolic 12/16/2017 [facility] Sodium 133 mmol/L Low 135-[address] [place] [address] [phone] Potassium 4.1 mmol/L N 3.5-5.0 Chloride 103 mmol/L N 101-111 Co2 Carbon Dioxide 26 mmol/L N 22-32 Anion Gap 4 mmol/L N 2-11 Glucose 95 mg/dL N 70-100 Blood Urea Nitrogen 20 mg/dL N 6-24 Creatinine 0.95 mg/dL N 0.67-1.17 BUN/Creatinine Ratio 21.1 High 8-20 Calcium 9.3 mg/dL N 8.6-10.3 Egfr Non- 78.2 >60 Egfr 94.6 >60 8 Type & Screen 12/16/2017 [facility] Patient Blood Type O Positive [address] [place] [address] [phone] Antibody Screen NEGATIVE Laboratory test 11/24/2017 [facility] Point of Care 112 mg/dL High 70-100 [address] [place] [address] [phone] 1 SEE RESULT BELOW Name: THORNEELKE V : [address]: Bibi Llanos MD Acct: [id number] Unit: [id number] AGE: 72 Location: OR Re12/16/17 SEX: M Status: [place] [facility] [place]: [id number] KETAN: 12/16/17-1640 [facility] [address]: Bibi Llanos MD REQ: [id number] RECD: 12/16/17 STATUS: TERRA ROYAL DR: Mari Tolentino LEAF SIZE PICKER _ SOURCE: BODY FLUID SPDESC:BRONCH WAS ORDERED: BF Cult/GS Procedure Result Reported Site Body Fluid Gram Stain Final 12/16/17- 1950 ML 4+ Neutrophils 2+ Gram Positive Cocci Preparation By Direct Smear Body Fluid Culture Final 12/20/17- 0832 ML Organism 1 STREPTOCOCCUS INTERMEDIUS Quantity 3+ Organism 2 STAPHYLOCOCCUS AUREUS Quantity 1+ 1. STREPTOCOCCUS INTERMEDIUS M.I.C. RX --------- ------ Chloramphenicol 4 S Ampicillin 0.25 S Penicillin 0.06 S Meropenem 0.12 S Cefepime 0.5 S * Cefotaxime <=0.25 S Ceftriaxone <=0.25 S Levofloxacin 0.5 S Azithromycin >2 R Clindamycin >0.5 R Erythromycin >0.5 R Tetracycline >4 R Vancomycin 1 S CONTINUED ON NEXT PAGE DEPARTMENT OF PATHOLOGY, [address] [place] [address] Kj Carrasquillo M.D. Director [facility] # [id number] Patient: ELKE THORNE V [id number] (Continued) Specimen: [id number] Collected: 12/16/17-1639 Received: 12/16/17 (Continued) Procedure Result Reported Site Body Fluid Culture Final (continued) 12/20/17831 2. STAPHYLOCOCCUS AUREUS M.I.C. RX --------- ------ Penicillin 0.25 R Clindamycin <=0.25 S Erythromycin <=0.25 S Gentamicin <=0.5 S Linezolid 2 S Oxacillin 0.5 S * Quinupristin/Dalfopristin <=0.25 S Rifampin <=0.5 S Tetracycline <=1 S Doxycycline - Deduced S * Minocycline - Deduced S Trimethoprim/Sulfamethoxazole <=10 S Vancomycin 1 S Imipenem-Deduced S * Ampicillin/Sulbactam-Deduced S Cefazolin-Deduced S * These antibiotics are not available in the [facility] Formulary Contact the Microbiology Department for any additional antibiotic reporting. * ML - Main Lab . END OF REPORT DEPARTMENT OF PATHOLOGY, [address] [place] [address] Kj Carrasquillo M.D. Director [facility] # [id number] 2 SEE RESULT BELOW Name: ELKE THORNE V : [address]: Bibi Llanos MD Acct: [id number] Unit: [id number] AGE: 72 Location: OR Re12/16/17 SEX: M Status: [place] [facility] [place]C: [id number] KETAN: 12/16/17-1639 [facility] [address]: Bibi Llanos MD REQ: [id number] RECD: 12/16/17 STATUS: TERRA ROYAL DR: Mari Tolentino LEAF SIZE PICKER _ SOURCE: BODY FLUID SPDESC:BRONCH WAS ORDERED: AFB Cult Smear Procedure Result Reported Site Acid Fast Stain - Direct Final 12/17/17- 800 ML AFB Smear Result No Acid Fast Bacillus Present (Negative) Preparation By Direct Smear Due to limited sensitivity of the smear, results should be used as an adjunct in evaluating the patient's status. This specimen has been sent to referral laboratory for mycobacterial culture. * ML - Main Lab . END OF REPORT DEPARTMENT OF PATHOLOGY, [address] [place] [address] Kj Carrasquillo M.D. Director [facility] # [id number] 3 SEE RESULT BELOW Name: ELKE THORNE V : [address]: Bibi Llanos MD Acct: [id number] Unit: [id number] AGE: 72 Location: OR Re12/16/17 SEX: M Status: REG SDC SPEC: [id number] KETAN: 12/16/17-1639 [facility] [address]: Bibi Llanos MD REQ: [id number] RECD: 12/16/17 STATUS: RES GENNY DR: Mari Tolentino LEAF SIZE PICKER _ SOURCE: RESP SPDESC:BRONCH WAS ORDERED: Fungal - Other Procedure Result Reported Site Fungal Cult - Other Sources Preliminary 12/28/17- 1230 ML No Growth Week 1 * - Main Lab . END OF REPORT DEPARTMENT OF PATHOLOGY, [address] [place] [address] Kj Carrasquillo M.D. Director [facility] # [id number] 4 SEE RESULT BELOW Name: ELKE THORNE V : [address]: Bibi Llanos MD Acct: [id number] Unit: [id number] AGE: 72 Location: OR Re12/16/17 SEX: M Status: REG SDC SPEC: [id number] KETAN: 12/16/17-1640 [facility] [address]: Bibi Llanos MD REQ: [id number] RECD: 12/16/17 STATUS: CHRISTI ROYAL DR: Mari Tolentino LEAF SIZE PICKER _ SOURCE: RESP SPDESC:BRONCH WAS ORDERED: Fungal - Other Procedure Result Reported Site Fungal Cult - Other Sources Preliminary 01/04/18- 1249 ML Fungal Culture No Growth of Mycotic Organisms 2 weeks * ML - Main Lab . END OF REPORT DEPARTMENT OF PATHOLOGY, [address] [place] [address] Kj Carrasquillo M.D. Director [facility] # [id number] 5 FINAL DIAGNOSIS: Specimen Source: L4 lymph node Flow cytometry immunophenotypic analysis: No immunophenotypic abnormality identified. Interpretative data: Lymphocytes: 34% of WBCs B-cells: 21% of lymphocytes with no evidence of light chain restriction or other immunophenotypic abnormality. T-cells/NK cells: No aberrant population detected. Markers tested: CD3, CD5, CD7, CD10, CD19, CD20, CD23, CD45, kappa surface light chains, lambda surface light chains, 7-AAD. Quality Assessment: Acceptable Viability: Acceptable Viable lymphocytes (7-AAD): 100% Specimen received within validated guidelines. A Geiger-Giemsa stained slide prepared from the flow cytometry specimen was examined for quality purposes. Electronically signed by: Kj Carrasquillo MD 12/21/17 8892 Technical component performed by: [address] [address] Drywall Applicator: Max Mata II, MD, PhD. 6 SEE RESULT BELOW Name: ELKE THORNE Lety : [address]: Bibi Llanos MD Acct: [id number] Unit: [id number] AGE: 72 Location: OR Re12/16/17 SEX: M Status: REG SDC SPEC: [id number] KETAN: 12/16/17-[address]: Bibi Llanos MD REQ: [id number] RECD: 12/16/17 STATUS: SOUT _ ORDERED: FNA-IMG GUID BX/4, CY ADEQ-ADDL P/2, LEVEL 4/4, CYTO ADEQ-1ST P/4 FINAL DIAGNOSIS 1) Lymph node, station-7, endobronchial fine needle aspiration: -- Lymphoid tissue. 2) Lymph node, L-10, endobronchial fine needle aspiration: -- Lymphoid tissue, and benign bronchial cells. 3) Lymph node, L-4, endobronchial fine needle aspiration: -- Lymphoid tissue. 4) Lymph node, R-4, endobronchial fine needle aspiration: -- Lymphoid tissue. 5) Bronchial lavage: -- Negative for malignant cells. A cell block was prepared in the evaluation of each specimen. Smears and cell blocks reveal similar findings. 1. LYMPH NODE - STATION-7 ENDOBRONCHIAL FINE NEEDLE ASPIRATION, 2. LYMPH NODE - L-10 ENDOBRONCHIAL FINE NEEDLE ASPIRATION, 3. LYMPH NODE - L-4 ENDOBRONCHIAL FINE NEEDLE ASPIRATION, 4. LYMPH NODE - R-4 ENDOBRONCHIAL FINE NEEDLE ASPIRATION, 5. BRONCHIAL LAVAGE - ENDOBRONCHIAL CONTINUED ON NEXT PAGE DEPARTMENT OF PATHOLOGY, [address] [place] [address] Kj Carrasquillo M.D. Director [facility] # [id number] RUN DATE: 12/22/17 [facility] LAB LIVE PAGE 2 Patient: ELKE THORNE Lety [id number] (Continued) CLINICAL HISTORY (Continued) CLINICAL HISTORY Head and neck carcinoma. Lung mass. Smoker. IMMEDIATE INTERPRETATION 1) Pass 1, 2, and 3-adequate 2) Pass 1-adequate. Pass 2, 3, and 4-inadequate 3) Pass 1, 2, and 3-adequate. 4) Pass 1-adequate. GROSS DESCRIPTION 1) 5- alcohol fixed slides(s) 3 - passes Needle rinse in formalin solution for cell block. 2) 5- alcohol fixed slides(s) 4 - passes Needle rinse in formalin solution for cell block. 3) * 3- alcohol fixed slides(s) 3 - passes Needle rinse in formalin solution for cell block. 4) 1- alcohol fixed slides(s) 1 - passes Needle rinse in formalin solution for cell block. 5) 10 mls thick israel colored fluid. (lavage). * Specimen sent to [facility] for Flow cytometry [place], [place] on 12/17/17 by ARMANDO at 1145. 1) SPECIAL STUDIES Flow cytometry has been performed at [place], [place]. The testing reveals: FINAL DIAGNOSIS: Specimen Source: L4 lymph node Flow cytometry immunophenotypic analysis: No immunophenotypic abnormality identified. Interpretative data: Lymphocytes: 34% of WBCs B-cells: 21% of lymphocytes with no evidence of light chain restriction or other immunophenotypic abnormality. T-cells/NK cells: No aberrant population detected. CONTINUED ON NEXT PAGE DEPARTMENT OF PATHOLOGY, [address] [place] [address] Kj Carrasquillo M.D. Director [facility] # [id number] RUN DATE: 12/22/17 [facility] LAB LIVE PAGE 3 Patient: ELKE THORNE V [id number] (Continued) SPECIAL STUDIES (Continued) SPECIAL STUDIES (Continued) Markers tested: CD3, CD5, CD7, CD10, CD19, CD20, CD23, CD45, kappa surface light chains, lambda surface light chains, 7-AAD. Quality Assessment: Acceptable Viability: Acceptable Viable lymphocytes (7-AAD): 100% Specimen received within validated guidelines. A Geiger-Giemsa stained slide prepared from the flow cytometry specimen was examined for quality purposes. Electronically signed by: Kj Carrasquillo MD 12/21/17 3855 Technical component performed by: [address] [address] Drywall Applicator: Max Mata II, MD, PhD. Signed by and Reported on: Lorrie Bal MD 12/22/17 1252 END OF REPORT DEPARTMENT OF PATHOLOGY, [address] [place] [address] Kj Carrasquillo M.D. Director [facility] # [id number] 7 OTHER DISORDERS OF LUNG 8 Because ethnic data is not always readily available, this report includes an eGFR for both -Americans and non- Americans. The National Kidney Disease Education Program (NKDEP) does not endorse the use of the MDRD equation for patients that are not between the ages of 18 and 70, are , have extremes of body size, muscle mass, or nutritional status, or are non- or non-. According to the National Kidney Foundation, irrespective of diagnosis, the stage of the disease is based on the level of kidney function: Stage Description GFR(mL/min/1.73 m(2)) 1 Kidney damage with normal or decreased GFR 90 2 Kidney damage with mild decrease in GFR 60-89 3 Moderate decrease in GFR 30-59 4 Severe decrease in GFR 15-29 5 Kidney failure <15 (or dialysis) 9 Head Tennis Coach: [id number] Procedures Description No Information Available Encounters Type Date Location Provider Dx Diagnosis Office Visit 11/26/2017 Pulmonology Jericho Petersen.Bernardo Other disorders 12:00p [facility] 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 J44.9 Chronic obstructive pulmonary disease, unspecified Z87.891 Personal history of nicotine dependence Office Visit 10/16/2017 2:00p Pulmonology Jason Elmore4 Other disorders [facility] lung 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 J44.9 Chronic obstructive pulmonary disease, unspecified Z87.891 Personal history of nicotine dependence Plan of Treatment Future Appointment(s):05/07/2018 10:45 am - Bibi Llanos MD at [facility]03/15/2018 1:00 pm - Rayshawn Meek MD at [facility]01/07/2018 - Bibi Llanos MDJ98.4 Other disorders of lungFollow up:3 months , CT chest lpnzmT59.9 Chronic obstructive pulmonary disease, unspecified
[2018-02-04] MEDS ORDERED: NS 0.9% 1000 ML* 1,000 ML IV ONE (17:43)
--- NOTE | 2018-02-04 18:20 | ED ---
Respiratory - HPI Summary HPI Summary: A 72 y/o male brought in by ambulance presents to [facility] with a chief complaint of coughing up yellow phlegm since . He denies SOB, fever or vomiting but admits to increased weakness and chills. He has a Hx of COPD, PNA and CVA. He reports that he recently finished doxycycline and was not taking steroids. He reports taking albuterol. A bronchoscopy was done revealing no cancer. He denies CHF, but has stents. His daughter also reports that her his urine has been dark. He rates his pain as 0/10. - History of Current Complaint Chief Complaint: EDWeakness Stated Complaint: WEAKNESS/GENERAL ILLNESS Time Seen by Provider: 02/04/18 17:41 Hx Obtained From: Patient, Family/Boat Joiner Onset/Duration: Sudden Onset, Lasting Days, Still Present Timing: Constant Initial Severity: Mild Current Severity: Mild Pain Intensity: 0 - out of 10 Sputum Amount: Moderate Sputum Color: Yellow Aggravating Factor(s): Nothing Alleviating Factor(s): Nothing Associated Signs and Symptoms: Chills - Allergy/Home Medications Allergies/Adverse Reactions: Allergies Allergy/AdvReac Type Severity Reaction Status Date / Time baclofen Allergy confusion Verified 12/16/17 12:19 clarithromycin Allergy Rash Verified 12/16/17 12:19 moxifloxacin Allergy Rash Verified 12/16/17 12:19 PMH/Surg Hx/FS Hx/Imm Hx Endocrine/Hematology History: Denies: Hx Diabetes Cardiovascular History: Reports: Hx Coronary Artery Disease - STENTS PLACED, Other Cardiovascular Problems/Disorders Denies: Hx Hypertension, Hx Pacemaker/ICD Respiratory History: Denies: Hx Asthma, Hx Chronic Obstructive Pulmonary Disease (COPD), Other Respiratory Problems/Disorders History: Denies: Hx Renal Disease Sensory History: Reports: Hx Contacts or Glasses - GLASSES Denies: Hx Hearing Aid Opthamlomology History: Reports: Hx Contacts or Glasses - GLASSES Neurological History: Reports: Hx CVA - Right side, Other Neuro Impairments/ Disorders - DAUGHTER STATES PATIENT WILL SEE NEUROLOGIST-DR. 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 CARDIAC STENTS-1999 Hx Anesthesia Reactions: No Infectious Disease History: No Infectious Disease History: Denies: Traveled Outside the [place] in Last 30 Days - Family History Known Family History: Positive: Diabetes - father Family History: Other family history reviewed and noncontributory - Social History Alcohol Use: Rare Substance Use Type: Reports: None Hx Tobacco Use: No Smoking Status (MU): Former Smoker Amount Used/How Often: AT THE MOST 2 PPD X ON AND OFF 56 YEARS Have You Smoked in the Last Year: Yes Review of Systems Positive: Chills. Negative: Fever Positive: Cough. Negative: Shortness Of Breath Negative: Vomiting Positive: Weakness All Other Systems Reviewed And Are Negative: Yes Physical Exam - Summary Physical Exam Summary: GENERAL: Patient is a well-developed and nourished M who is lying comfortable in the stretcher. Patient is not in any acute respiratory distress. HEAD AND FACE: Normocephalic EYES: PERRLA, EOMI x 2. EARS: Hearing grossly intact. MOUTH: Oropharynx within normal limits. NECK: Supple, trachea is midline, no adenopathy, no JVD, no carotid bruit. CHEST: Symmetric, no tenderness at palpation LUNGS: Clear to auscultation bilaterally. No wheezing or crackles. CVS: Regular rate and rhythm, S1 and S2 present, no murmurs or gallops appreciated. ABDOMEN: Soft, non-tender. Bowel sounds are normal. No abdominal abnormal pulsations. EXTREMITIES: Full ROM in all major joints, no edema, no cyanosis or clubbing. NEURO: Alert and oriented x 3. No acute neurological deficits. Speech is normal and follows commands. SKIN: Dry and warm Triage Information Reviewed: Yes Vital Signs On Initial Exam: Initial Vitals Temp Pulse Resp BP Pulse Ox 98.3 F 86 16 95/70 97 02/04/18 17:20 02/04/18 17:20 02/04/18 17:20 02/04/18 17:20 02/04/18 17:20 Vital Signs Reviewed: Yes Diagnostics - Vital Signs Vital Signs Temp Pulse Resp BP Pulse Ox 02/04/18 17:20 98.3 F 86 16 95/70 97 - Laboratory Result Diagrams: 02/07/18 06:19 02/07/18 06:19 Lab Statement: Any lab studies that have been ordered have been reviewed, and results considered in the medical decision making process. - Radiology CXR Radiology Interpretation Completed By: ED Physician Summary of Radiographic Findings: Left upper lobe PNA, worsened from previous CXR. Pending official radiology report. - EKG 18:09 Cardiac Rate: NL - 86 bpm EKG Rhythm: Sinus Rhythm Summary of EKG Findings: NSR at 86 bpm with RBBB. Disposition - Course Course Of Treatment: A 72 y/o male brought in by ambulance presents to [facility] with a chief complaint of coughing up yellow phlegm since .CXR revealed left upper lobe PNA, worsened from previous CXR. EKG revealed NSR at 86 bpm with RBBB. Influenza test was negative. In the ED course patient was given Decadron and Sodium chloride IV. The patient was instructed to take IV abx. Dx: PNA The patient will be admitted. Case discussed with Dr. Salcido, hospitalist. I discussed results with patient. The patient agrees with this plan. - Diagnoses Provider Diagnoses: PNA (pneumonia) - Physician Notifications Discussed Care Of Patient With: Mark Salcido Time Discussed With Above Provider: 18:45 Instructed by Provider To: Admit As Inpatient Discharge - Sign-Out/Discharge Documenting (check all that apply): Patient Departure - admit - Discharge Plan Condition: Fair Disposition: ADMITTED TO [facility] - Billing Disposition and Condition Condition: FAIR Disposition: Admitted to [facility] - Attestation Statements Document Initiated by Edwardibla: Yes Documenting Scribe: Oscar Lagos Provider For Whom Avril is Documenting (Include Credential): Raul Lin MD Scribe Attestation: IOscar, scribed for Raul Lin MD on 02/08/18 at 0719. Scribe Documentation Reviewed: Yes Provider Attestation: The documentation as recorded by the Oscar rouse accurately reflects the service I personally performed and the decisions made by me, Jania Lin MD Status of Scribe Document: Viewed
[2018-02-04] MEDS ORDERED: Vancomycin(*) 1,000 MG in NS 0.9% 250 ML* 250 ML IVPB ONE (18:40)
[2018-02-04] MEDS ORDERED: Piperacillin/Tazobac ADVAN(*) 3.375 GM in NS 0.9% 100 ML* 100 ML IVPB ONE (18:40)
[2018-02-04] MEDS ORDERED: Dexamethasone IV* 4 MG/ML 5 ML VIAL (20 MG) IVPB ONE (18:40)
[2018-02-04] MEDS ORDERED: Albuterol/Ipratropium NEB.SOL* Albuterol 2.5 MG/Ipratropium 0.5 MG 3 ML INH ONE (18:44)
[2018-02-04] MEDS ORDERED: Acetaminophen TAB* 325 MG PO PRN ×3 (19:28→20:34)
[2018-02-04] MEDS ORDERED: Cyclobenzaprine TAB* 10 MG PO PRN (19:32)
[2018-02-04] MEDS ORDERED: Docusate CAP* 100 MG PO PRN (19:32)
[2018-02-04] MEDS ORDERED: Albuterol 2.5 MG/3 ML NEB.SOL* (0.083%) INH PRN (19:41)
[2018-02-04] MEDS ORDERED: GuaiFENesin DM* 5 ML UDC PO PRN (19:42)
[2018-02-04 19:47] LABS: ABS Basophils 0.1 10^3/ul (0-0.2); ABS Eosinophils 0.1 10^3/ul (0-0.6); ABS Lymphocytes 1.1 10^3/ul (1.0-4.8); ABS Monocytes 1.1 10^3/ul (0-0.8); ABS Neutrophils 15.6 10^3/ul (1.5-7.7); ABS Nucleated RBC 0 10^3/ul; Eosinophil % 0.7 %; Hematocrit 29 % (42-52); Hemoglobin 9.7 g/dl (14.0-18.0); Mean Corpuscular HGB Conc 34 g/dl (31-36); Mean Corpuscular Hemoglobin 33 pg (27-31); Mean Corpuscular Volume 98 fL (80-94); Mean Platelet Volume 7.1 fL (7.4-10.4); Nucleated Red Blood Cells % 0.1; Platelet Count 467 10^3/ul (150-450); Red Blood Count 2.94 10^6/ul (4.00-5.40); Red Cell Distribution Width 15 % (10.5-15)
--- NOTE | 2018-02-04 19:48 | ADMNOTE ---
Subjective Date of Service: 02/04/18 Interval History: code status full this is admission h/p hpi this is a 72 yr old who had a cva with rue paralysis/rle paresis copd not on home oxygen presented to er with starting to spike fever to 101.3 at 2 pm to 101.9 at 4 pm chills, beyond his baseline sob and coughing with yellowish sputum. daughter, the caregiver decided to bring him in. pt had an episode of choking with meds about last thursday and has increasing coughing with yellowish sputum since. otherwise no recurrence and tolerated his meds and diet. he was treated outpt three times with doxycycline by pcp for pna so far, the most recent one was from 12/24-01/09/2018. pt had a bronch done 12/2017 to make sure he did not have lung cancer and pathology came back neg. his initial wbc came back 18 but lactic acid is wnl initial chest x ray showed worsening l side pna phx cva with resultant rue paralysis+ rle paresis 08/02/2047 cad with 5 stents 1999 done in [facility] last stress test was 3 yrs ago and was told it was good by his cardio hyperlipidemia copd not on home oxygen vertigo quit cig 08/01/2017 after his massive cva was on cig 2 ppd since age 16 recurrent pna was treated with doxycycline three times outpt for the past 2-3 months ---> last treatment with doxycycline was 12/24-01/09/2018 pshx s/p r inquinal hernia social hx quit cig since 08/01/2017 rare etoh no ivda lives with daughter at home walks with a hemiwalker fhx denied any htn/dm/cva/cad when asked Review of Systems - Measurements Intake and Output: Intake and Output Last 24 Hours 02/02/18 02/03/18 02/04/18 02/05/18 06:59 06:59 06:59 06:59 Weight 164 lb - Review of Systems General Comments: pertinent as per hpi Objective Active Medications: Acetaminophen (Tylenol Tab*) 650 mg PO Q4H PRN PRN Reason: FEVER/PAIN Acetaminophen (Tylenol Tab*) 650 mg PO Q4H PRN PRN Reason: PAIN Albuterol (Ventolin 2.5 Mg/3 Ml Neb.Florinda*) 2.5 mg INH Q2H PRN PRN Reason: SOB/WHEEZING Albuterol/Ipratropium (Duoneb (Albuterol 2.5 Mg/Ipratropium 0.5 Mg)) 1 neb INH [id number] AWAKE [facility] Cholecalciferol (Vitamin D Tab*) 400 unit PO QAM [facility] Clopidogrel Bisulfate (Plavix Tab*) 75 mg PO QAM [facility] Cyclobenzaprine HCl (Flexeril Tab*) 10 mg PO TID PRN PRN Reason: muscle spasm Docusate Sodium (Colace Cap*) 100 mg PO BID PRN PRN Reason: CONSTIPATION Fluoxetine HCl (Prozac Cap*) 20 mg PO QAM [facility] Guaifenesin/Dextromethorphan (Robitussin Dm*) 5 ml PO Q4H PRN PRN Reason: COUGH Vancomycin HCl 1,000 mg/ (Sodium Chloride) 250 mls @ 166.667 mls/hr IVPB ONCE ONE Stop: 02/04/18 20:09 Sodium Chloride (Ns 0.9% 1000 Ml*) 1,000 mls @ 100 mls/hr IV PER RATE [facility] Piperacillin Sod/Tazobactam (Sod 3.375 gm/ Sodium Chloride) 100 mls @ 25 mls/ hr IVPB Q8H [facility] Non-Formulary Medication (Ezetimibe/Simvastatin [Vytorin 10-40 Mg Tablet]) 1 each PO BEDTIME [facility] Vital Signs - 8 hr 02/04/18 17:20 Temperature 98.3 F Pulse Rate 86 Respiratory 16 Rate Blood Pressure 95/70 (mmHg) O2 Sat by Pulse 97 Oximetry Appearance: nad Eyes: No Scleral Icterus, PERRLA Ears/Nose/Mouth/Throat: NL Teeth, Lips, Gums, Clear Oropharnyx, Mucous Membranes Moist Neck: NL Appearance and Movements; NL JVP, Trachea Midline, No Thyroid Enlargement, Masses Respiratory: Symmetrical Chest Expansion and Respiratory Effort, - - very decreased breath sounds throughout Cardiovascular: NL Sounds; No Murmurs; No JVD, RRR Abdominal: NL Sounds; No Tenderness; No Distention Extremities: No Edema - able to raise rle against gravity to 30 degree but unable to raise rue at all lue/lle able to raise against gravity , - Skin: No Rash or Ulcers Neurological: Alert and Oriented x 3, NL Sensation, - - cranial n 2-12 grossly intact rue paralysis rle paresis lue/lle 5/5 plantar reflex downwards Result Diagrams: 02/04/18 19:24 02/04/18 19:24 Microbiology and Other Data: Microbiology 02/04/18 18:23 Influenza Types A,B Antigen - Final Nasal Specimen received for Influenza A/B Molecular testing EKG Data: ns no acute st t changes Assess/Plan/Problems-Billing Assessment: this is a 72 yr old wm with hx of cva copd quit cig smoke 07/2017 but not on oxygen prior to admission was broght in after one day hx of fever to 101.6 and chills pt had an episode of choking with meds following by coughing one week ago has been coughing with yellowish sputum --- > chest xray + lll pna - Patient Problems (1) Pneumonia Current Visit: Yes Status: Acute Code(s): J18.9 - PNEUMONIA, UNSPECIFIED ORGANISM SNOMED Code(s): 389200942 Comment: prob community acquired pna + aspiration pna flu and mrsa npo except meds zosyn check sputum check urine legionella and strep pna (2) SIRS (systemic inflammatory response syndrome) Current Visit: Yes Status: Acute Code(s): R65.10 - SIRS OF NON-INFECTIOUS ORIGIN W/O ACUTE ORGAN DYSFUNCTION SNOMED Code(s): 765052151 Comment: lactic acid wnl will moniter his cbc trend while on zosyn (3) COPD (chronic obstructive pulmonary disease) Current Visit: Yes Status: Acute Code(s): J44.9 - CHRONIC OBSTRUCTIVE PULMONARY DISEASE, UNSPECIFIED SNOMED Code(s): 66343678 Comment: oxygen prn with target pulse oxy 88-92 percent albuterol zosyn robutussin (4) CVA (cerebral vascular accident) Current Visit: Yes Status: Acute Code(s): I63.9 - CEREBRAL INFARCTION, UNSPECIFIED SNOMED Code(s): 745929668 Comment: stable montier (5) SOB (shortness of breath) Current Visit: Yes Status: Acute Code(s): R06.02 - SHORTNESS OF BREATH SNOMED Code(s): 266926468 Comment: prob related to his lung than heart espically he has pna with sig copd hx resp tx/robutussion/abx/oxygen prn tele with kerline echo (6) Full code status Current Visit: Yes Status: Acute Code(s): Z78.9 - OTHER SPECIFIED HEALTH STATUS SNOMED Code(s): 743673376 (7) DVT prophylaxis Current Visit: Yes Status: Acute Code(s): QSL2354 - SNOMED Code(s): 241848832 Comment: heparin tid
[2018-02-04 19:51] LABS: Activated Partial Thrombo Time 30.6 seconds (26.0-36.3); INR 1.25 (0.77-1.02)
[2018-02-04 19:54] LABS: Albumin 2.6 g/dL (3.2-5.2); Albumin/Globulin Ratio 0.7 (1-3); BUN/Creatinine Ratio 16.9 (8-20); Calcium 8.4 mg/dL (8.6-10.3); EGFR Non-African American 91.3 (>60); Globulin 3.8 g/dL (2-4); Total Bilirubin 0.5 mg/dL (0.2-1.0); Total Protein 6.4 g/dL (6.4-8.9)
[2018-02-04 19:57] LABS: Urine Appearance Clear; Urine Bacteria Absent (Absent); Urine Bilirubin Negative (Negative); Urine Blood Negative (Negative); Urine Color Yellow; Urine Glucose Negative (Negative); Urine Ketones Negative (Negative); Urine Nitrite Negative (Negative); Urine Protein 2+(100 mg/dL) (Negative); Urine Red Blood Cell Trace(0-2/hpf) (Absent); Urine Specific Gravity 1.016 (1.010-1.030); Urine Urobilinogen Negative (Negative); Urine White Blood Cell Trace(0-5/hpf) (Absent)
[2018-02-04 20:26] LABS: TSH (Thyroid Stimulating Horm) 3.36 mcIU/mL (0.34-5.60)
[2018-02-04] MEDS ORDERED: EZETIMIBE PO SCH (21:00)
[2018-02-04] MEDS ORDERED: SIMVASTATIN PO SCH (21:00)
[2018-02-04] MEDS: NS 0.9% 1000 ML* 1,000 ML IV SCH (21:15)
[2018-02-04] MEDS: Albuterol/Ipratropium NEB.SOL* Albuterol 2.5 MG/Ipratropium 0.5 MG 3 ML INH SCH (22:39)
[2018-02-04] MEDS: CMCS: Simvastatin TAB(NF) 20 MG TAB PO SCH (23:47)
[2018-02-04] MEDS: Ezetimibe TAB* 10 MG PO SCH (23:47)
[2018-02-05] MEDS: Piperacillin/Tazobac ADVAN(*) 3.375 GM in NS 0.9% 100 ML* 100 ML IVPB SCH ×3 (00:31→17:13)
[2018-02-05] MEDS: Albuterol/Ipratropium NEB.SOL* Albuterol 2.5 MG/Ipratropium 0.5 MG 3 ML INH SCH (03:13)
[2018-02-05 06:58] LABS: Anion Gap 6 mmol/L (2-11); BUN/Creatinine Ratio 18.7 (8-20); Blood Urea Nitrogen 14 mg/dL (6-24); CO2 Carbon Dioxide 23 mmol/L (22-32); Calcium 8.9 mg/dL (8.6-10.3); Chloride 103 mmol/L (101-111); Cholesterol 88 mg/dL; EGFR Non-African American 102.7 (>60); Glucose 188 mg/dL (70-100); HDL Cholesterol 34.3 mg/dL; LDL Cholesterol 46 mg/dL; Potassium 4.2 mmol/L (3.5-5.0); Sodium 132 mmol/L (135-145); Triglycerides 37 mg/dL
[2018-02-05 07:34] LABS: ABS Basophils 0 10^3/ul (0-0.2); ABS Eosinophils 0 10^3/ul (0-0.6); ABS Lymphocytes 0.4 10^3/ul (1.0-4.8); ABS Monocytes 0.3 10^3/ul (0-0.8); ABS Neutrophils 13.7 10^3/ul (1.5-7.7); ABS Nucleated RBC 0 10^3/ul; Eosinophil % 0 %; Hematocrit 30 % (42-52); Hemoglobin 9.7 g/dl (14.0-18.0); Lymphocyte % 2.9 %; Mean Corpuscular HGB Conc 33 g/dl (31-36); Mean Corpuscular Hemoglobin 32 pg (27-31); Mean Corpuscular Volume 98 fL (80-94); Mean Platelet Volume 7.3 fL (7.4-10.4); Nucleated Red Blood Cells % 0; Platelet Count 464 10^3/ul (150-450); Red Blood Count 3.01 10^6/ul (4.00-5.40); Red Cell Distribution Width 15 % (10.5-15); White Blood Count 14.5 10^3/ul (3.5-10.8)
[2018-02-05 08:06] LABS: Iron < 15 ug/dL (50-212); Total Iron Binding Capacity 200 mcg/dL (250-450); Transferrin 143 mg/dL (203-362)
[2018-02-05 08:33] LABS: Folate > 20.00 ng/mL (>3.99)
[2018-02-05] MEDS: Cholecalciferol TAB* 400 UNIT PO SCH (08:35)
[2018-02-05] MEDS: FLUoxetine CAP* 20 MG PO SCH (08:35)
[2018-02-05] MEDS ORDERED: Clopidogrel TAB* 75 MG PO SCH (09:00)
--- NOTE | 2018-02-05 14:21 | CONS ---
PULMONARY CONSULTATION: DATE OF CONSULT: 02/05/18 CONSULTATION REQUESTED BY: Dr. Mays. REASON FOR CONSULT: Recurrent pneumonia and abnormal chest x-ray. HISTORY OF PRESENT ILLNESS: 72-year-old male, known to me from prior inpatient and outpatient evaluation. The patient has history of recent CVA with complicated postop course. The patient with residual paralysis of the right side. He had prolonged hospitalization due to pneumonia. The patient had recurrence of pneumonia as an outpatient, was treated with antibiotics. The patient has been doing well until recently when all this started after an episode of choking while taking his pills. The patient 48 hours later started having fevers, cough productive of yellow phlegm, and was brought into the hospital for further evaluation by the patient's daughter. The patient also spiked fevers of 101 at home. The patient reports no change in shortness of breath. The patient reports feeling better this morning. He was initiated on broad-spectrum antibiotics yesterday, which are being continued. Chest x-ray performed on admission was personally reviewed by me - evidence of slight increase in lesion noted in the left upper lobe. No airspace opacities were seen in the right lung. No pleural effusion was noted. This was further evaluated with CT chest. I have personally reviewed CT scan of the chest and with the patient and his daughter today. The patient with evidence of increase in density in the left upper lobe. The patient also with evidence of cavitation within that consolidated density. It has subpleural location in the left upper lobe. The diameter of this density has increased from prior PET scan. The patient also with mild metabolic uptake on prior PET scan. No significant effusion was noted. Left lower lobe airspace opacity that was dense in the past was improved. Right lung appears clear. There are significant emphysematous changes. PAST MEDICAL HISTORY: 1. CVA with right hemiparesis. 2. Coronary artery disease, status post stent. 3. Recurrent pneumonias recently. 4. History of head and neck cancer. 5. Dyslipidemia. 6. COPD. 7. Vertigo. 8. Significant smoking history, quit in July 2017 after the CVA. PAST SURGICAL HISTORY: Right inguinal hernia. ALLERGIES: BACLOFEN, CLARITHROMYCIN, MOXIFLOXACIN. FAMILY HISTORY: Reviewed and noncontributory to current complaint. SOCIAL HISTORY: Former smoker, quit in July of 2017. No alcohol or drug abuse. He lives at home with his daughter. REVIEW OF SYSTEMS: All 14 systems reviewed and as per HPI. PHYSICAL EXAM: The patient is in bed, in no apparent distress. Vital Signs: Temperature 97, pulse 58 beats per minute, respiratory rate 18 per minute, O2 sat 98% on 1 L, blood pressure 88/59. HEENT: Pupils equal, reactive to light. Mucous membranes moist. Lungs: Diminished air entry bilaterally, scattered wheeze, decreased breath sounds on the left base. Cardiovascular: S1, S2 present, regular. Abdomen: Soft, nontender, nondistended. Bowel sounds present. Extremities: Normal range of motion. Neurologic: Right hemiparesis. Skin: No rash. DIAGNOSTIC STUDIES/LAB DATA: Laboratory Exam: WBC count 14.5, hemoglobin 9.7, hematocrit 30, platelet count 464. Sodium 132, potassium 4.2, chloride 103, bicarb 23, BUN 14, creatinine 0.75. Troponins within normal limits. Influenza A and B negative. Chest x-ray, CT scan of the chest as described above in HPI. IMPRESSION AND RECOMMENDATIONS: 72-year-old male with head and neck cancer with significant smoking history, recent cerebrovascular accident with recurrent pneumonias since that time with ongoing pneumonias requiring frequent antibiotic usage, found to have airspace opacities in the left lower lobe that have improved over a period of time; however, the left upper lobe airspace opacity is increasing in size with some cavitations inside concerning for neoplastic lesion. The patient had mild PET positivity on the lesion and given the appearance, would need biopsy. Given subpleural location, it could be accessed through ultrasound. Will order ultrasound-guided biopsy. Patient on Plavix that needs to be held. Procedure was discussed with the patient. Associated risks were discussed. He has history of hypotension. He is not tachycardic. He was empirically started on Zosyn for coverage of pneumonia. Thank you for allowing me to participate in the care of your patient. Will follow up with you. [id number]/[facility] #: [id number] WENDY
--- NOTE | 2018-02-05 17:11 | ECHO ---
Patient: ELKE THORNE V [facility] Rec#: [id number] : 1945 Date: 02/05/2018 Age: 72y Height: 183 cm / 72.0 in Weight: 74.4 kg / 164.0 lbs Sex: M BSA: 2 Room#: [facility] Admit Date#: 02/04/2018 Type: Inpatient Referring: Katherine Munoz Reading: Manuel Weiner MD Alarm Signal Operator: Lennie Rothman RN RDCS CC: Mari Tolentino NP Transthoracic Echocardiogram Indication: Shortness of breath BP: 114/64 HR: 65 Rhythm: NSR Findings History: CAD, PCI, HTN, HLD, DM, CVA, tongue cancer with chemotherapy and radiation therapy, COPD, former smoker. Technical Comments: The study quality is fair. Left Ventricle: The left ventricular chamber size is normal. Mild concentric left ventricular hypertrophy is observed. Global left ventricular wall motion and contractility are within normal limits. There is normal left ventricular systolic function. The estimated ejection fraction is 55-60%. The assessment of diastolic function is non-diagnostic. Left Atrium: The left atrial chamber size is normal. Right Ventricle: The right ventricular chamber size and systolic function are within normal limits. Right Atrium: The right atrial cavity size is normal. Aortic Valve: The aortic valve is trileaflet. The aortic valve leaflets are moderately thickened. There is trace to mild aortic regurgitation. There is mild aortic stenosis. The mean gradient of the aortic valve is 16 mmHg. The peak instantaneous gradient of the aortic valve is 29 mmHg. The aortic valve area, by peak velocities, is calculated at 1.4 cm2. The aortic valve area, by VTI's, is calculated at 1.4 cm2. Mitral Valve: There is mitral annular calcification. The mitral valve leaflets are mildly thickened. There is a trace of mitral regurgitation. Tricuspid Valve: The tricuspid valve leaflets are normal. There is trace to mild tricuspid regurgitation. No pulmonary hypertension is noted. Pulmonic Valve: The pulmonic valve structure is not well visualized. There is no evidence of pulmonic regurgitation. There is no pulmonic stenosis. Pericardium: There is no significant pericardial effusion. Aorta: The ascending aorta is not well visualized. The aortic arch is not well visualized. There is no dilation of the aortic root. Pulmonary Artery: The main pulmonary artery is not well visualized. Venous: The inferior vena cava appears normal in size. There is a greater than 50% respiratory change in the inferior vena cava dimension. Conclusions There is normal left ventricular systolic function. The estimated ejection fraction is 55-60%. Global left ventricular wall motion and contractility are within normal limits. Mild concentric left ventricular hypertrophy is observed. Normal cardiac chamber sizes. There is mild aortic stenosis. There is no prior echocardiogram available to compare with at this time. Measurements Name Value Normal Range RVDdMajor (2D) 3.5 cm (2.2 - 4.4) RAd ISD 4CH 4.9 cm (3.4 - 4.9) RA (A4C)W 3.6 cm (2.9 - 4.6) IVSd (2D) 1.1 cm (0.6 - 1) LVPWd (2D) 1.1 cm (0.6 - 1) LVIDd (2D) 4.1 cm (3.6 - 5.4) LVIDs (2D) 3 cm - LV FS (2D) 27 % (25 - 45) Aortic Annulus 2.1 cm (1.4 - 2.6) Ao root diameter (2D) 3.2 cm (2.1 - 3.5) LA dimension (AP) 2D 3.6 cm (2.3 - 3.8) LAd ISD 4CH 5 cm (2.9 - 5.3) LA ISD 4CH W 4.6 cm (2.5 - 4.5) Name Value Normal Range LA ESV BP (A/L) index 33.3 ml/m2 - Name Value Normal Range MV E-wave Vmax 0.78 m/sec - MV deceleration time 246 msec - MV A-wave Vmax 0.99 m/sec - MV E:A ratio 0.8 ratio - LV septal e' Vmax 0.08 m/sec - LV lateral e' Vmax 0.1 m/sec - LV E:e' septal ratio 9.8 ratio - LV E:e' lateral ratio 7.8 ratio - Name Value Normal Range AV Vmax 2.7 m/sec - AV VTI 61.8 cm - AV peak gradient 29 mmHg - AV mean gradient 16 mmHg - LVOT diameter 2 cm - LVOT Vmax 1.2 m/sec - LVOT VTI 26.9 cm - LVOT peak gradient 6 mmHg - LVOT mean gradient 3 mmHg - DOI (VTI) 0.44 ratio - DOI (Vmax) 0.44 ratio - BOBY (continuity Vmax) 1.4 cm2 - BOBY (continuity VTI) 1.4 cm2 - AR PHT 546 msec - Name Value Normal Range TR Vmax 2.3 m/sec - TR peak gradient 22 mmHg - RAP 3 mmHg - RVSP 25 mmHg - IVC diameter 1.6 cm - Name Value Normal Range PV Vmax 0.91 m/sec -
--- NOTE | 2018-02-05 18:48 | PN ---
Subjective Date of Service: 02/05/18 Interval History: Sitting in chair on assessment. Reports he feels improved from yesterday. Reports occasional productive cough. Denies sob, cp, palpitations, n/v/d, urinary symptoms, diarrhea. Objective Active Medications: Acetaminophen (Tylenol Tab*) 650 mg PO Q4H PRN PRN Reason: FEVER/PAIN Albuterol (Ventolin 2.5 Mg/3 Ml Neb.Florinda*) 2.5 mg INH Q2H PRN PRN Reason: SOB/WHEEZING Cholecalciferol (Vitamin D Tab*) 400 unit PO QAM [facility] Last Admin: 02/05/18 08:35 Dose: 400 unit Cyclobenzaprine HCl (Flexeril Tab*) 10 mg PO TID PRN PRN Reason: muscle spasm Docusate Sodium (Colace Cap*) 100 mg PO BID PRN PRN Reason: CONSTIPATION Ezetimibe (Zetia Tab*) 10 mg PO BEDTIME [facility] Last Admin: 02/04/18 23:47 Dose: 10 mg Fluoxetine HCl (Prozac Cap*) 20 mg PO QAM [facility] Last Admin: 02/05/18 08:35 Dose: 20 mg Guaifenesin/Dextromethorphan (Robitussin Dm*) 5 ml PO Q4H PRN PRN Reason: COUGH Sodium Chloride (Ns 0.9% 1000 Ml*) 1,000 mls @ 100 mls/hr IV PER RATE [facility] Last Admin: 02/04/18 21:15 Dose: 100 mls/hr Piperacillin Sod/Tazobactam (Sod 3.375 gm/ Sodium Chloride) 100 mls @ 25 mls/ hr IVPB Q8H [facility] Last Admin: 02/05/18 17:13 Dose: 25 mls/hr Simvastatin (Zocor(Nf)) 40 mg PO BEDTIME [facility] Last Admin: 02/04/18 23:47 Dose: 40 mg Vital Signs - 8 hr 02/05/18 02/05/18 11:20 15:35 Temperature 97.0 F 97.8 F Pulse Rate 58 63 Respiratory 18 18 Rate Blood Pressure 88/59 90/55 (mmHg) O2 Sat by Pulse 98 96 Oximetry Oxygen Devices in Use Now: None Appearance: Comfortable, NAD Eyes: No Scleral Icterus Ears/Nose/Mouth/Throat: Clear Oropharnyx, Mucous Membranes Moist Neck: NL Appearance and Movements; NL JVP Respiratory: Symmetrical Chest Expansion and Respiratory Effort, - - Breath sounds are decreased throughout, but otherwise clear Cardiovascular: NL Sounds; No Murmurs; No JVD, RRR, No Edema Abdominal: NL Sounds; No Tenderness; No Distention Lymphatic: No Cervical Adenopathy Extremities: No Edema, No Clubbing, Cyanosis Skin: No Rash or Ulcers Neurological: Alert and Oriented x 3, NL Muscle Strength and Tone Nutrition: Taking PO's Result Diagrams: 02/05/18 06:11 02/05/18 06:11 Additional Lab and Data: Laboratory Results - last 24 hr 02/04/18 02/04/18 02/04/18 18:41 19:23 19:24 WBC 18.0 H RBC 2.94 L Hgb 9.7 L Hct 29 L MCV 98 H MCH 33 H MCHC 34 RDW 15 Plt Count 467 H MPV 7.1 L Neut % (Auto) 86.6 Lymph % (Auto) 6.0 Mcduffie % (Auto) 6.3 Eos % (Auto) 0.7 Baso % (Auto) 0.4 Absolute Neuts (auto) 15.6 H Absolute Lymphs (auto) 1.1 Absolute Monos (auto) 1.1 H Absolute Eos (auto) 0.1 Absolute Basos (auto) 0.1 Absolute Nucleated RBC 0 Nucleated RBC % 0.1 INR (Anticoag Therapy) 1.25 H APTT 30.6 Sodium Potassium Chloride Carbon Dioxide Anion Gap BUN Creatinine Est GFR ( Amer) Est GFR (Non-Af Amer) BUN/Creatinine Ratio Glucose Lactic Acid Calcium Iron TIBC % Saturation Unsat Iron Binding Transferrin Ferritin Total Bilirubin AST ALT Alkaline Phosphatase Troponin I B-Natriuretic Peptide Total Protein Albumin Globulin Albumin/Globulin Ratio Triglycerides Cholesterol LDL Cholesterol HDL Cholesterol Vitamin B12 Folate TSH Urine Color Urine Appearance Urine pH Ur Specific Wilton Urine Protein Urine Ketones Urine Blood Urine Nitrate Urine Bilirubin Urine Urobilinogen Ur Leukocyte Esterase Urine WBC (Auto) Urine RBC (Auto) Urine Bacteria Urine Sperm Urine Glucose Urine Ascorbic Acid Influenza A (Rapid) Negative Influenza B (Rapid) Negative 02/04/18 02/04/18 02/04/18 19:24 19:24 19:25 WBC RBC Hgb Hct MCV MCH MCHC RDW Plt Count MPV Neut % (Auto) Lymph % (Auto) Mcduffie % (Auto) Eos % (Auto) Baso % (Auto) Absolute Neuts (auto) Absolute Lymphs (auto) Absolute Monos (auto) Absolute Eos (auto) Absolute Basos (auto) Absolute Nucleated RBC Nucleated RBC % INR (Anticoag Therapy) APTT Sodium 127 L Potassium 4.0 Chloride 99 L Carbon Dioxide 23 Anion Gap 5 BUN 14 Creatinine 0.83 Est GFR ( Amer) 110.5 Est GFR (Non-Af Amer) 91.3 BUN/Creatinine Ratio 16.9 Glucose 105 H Lactic Acid 0.7 Calcium 8.4 L Iron TIBC % Saturation Unsat Iron Binding Transferrin Ferritin Total Bilirubin 0.50 AST 22 ALT 33 Alkaline Phosphatase 59 Troponin I 0.01 B-Natriuretic Peptide 106 H Total Protein 6.4 Albumin 2.6 L Globulin 3.8 Albumin/Globulin Ratio 0.7 L Triglycerides Cholesterol LDL Cholesterol HDL Cholesterol Vitamin B12 Folate TSH 3.36 Urine Color Urine Appearance Urine pH Ur Specific Wilton Urine Protein Urine Ketones Urine Blood Urine Nitrate Urine Bilirubin Urine Urobilinogen Ur Leukocyte Esterase Urine WBC (Auto) Urine RBC (Auto) Urine Bacteria Urine Sperm Urine Glucose Urine Ascorbic Acid Influenza A (Rapid) Influenza B (Rapid) 02/04/18 02/04/18 02/04/18 19:42 20:42 23:36 WBC RBC Hgb Hct MCV MCH MCHC RDW Plt Count MPV Neut % (Auto) Lymph % (Auto) Mcduffie % (Auto) Eos % (Auto) Baso % (Auto) Absolute Neuts (auto) Absolute Lymphs (auto) Absolute Monos (auto) Absolute Eos (auto) Absolute Basos (auto) Absolute Nucleated RBC Nucleated RBC % INR (Anticoag Therapy) APTT Sodium Potassium Chloride Carbon Dioxide Anion Gap BUN Creatinine Est GFR ( Amer) Est GFR (Non-Af Amer) BUN/Creatinine Ratio Glucose Lactic Acid Calcium Iron TIBC % Saturation Unsat Iron Binding Transferrin Ferritin Total Bilirubin AST ALT Alkaline Phosphatase Troponin I 0.01 0.01 B-Natriuretic Peptide Total Protein Albumin Globulin Albumin/Globulin Ratio Triglycerides Cholesterol LDL Cholesterol HDL Cholesterol Vitamin B12 Folate TSH Urine Color Yellow Urine Appearance Clear Urine pH 7.0 Ur Specific Wilton 1.016 Urine Protein 2+(100 mg/dl) A Urine Ketones Negative Urine Blood Negative Urine Nitrate Negative Urine Bilirubin Negative Urine Urobilinogen Negative Ur Leukocyte Esterase Negative Urine WBC (Auto) Trace(0-5/hpf) Urine RBC (Auto) Trace(0-2/hpf) Urine Bacteria Absent Urine Sperm Present A Urine Glucose Negative Urine Ascorbic Acid * A Influenza A (Rapid) Influenza B (Rapid) 02/05/18 02/05/18 02/05/18 02:46 06:11 06:11 WBC 14.5 H RBC 3.01 L Hgb 9.7 L Hct 30 L MCV 98 H MCH 32 H MCHC 33 RDW 15 Plt Count 464 H MPV 7.3 L Neut % (Auto) 94.8 Lymph % (Auto) 2.9 Mcduffie % (Auto) 2.1 Eos % (Auto) 0 Baso % (Auto) 0.2 Absolute Neuts (auto) 13.7 H Absolute Lymphs (auto) 0.4 L Absolute Monos (auto) 0.3 Absolute Eos (auto) 0 Absolute Basos (auto) 0 Absolute Nucleated RBC 0 Nucleated RBC % 0 INR (Anticoag Therapy) APTT Sodium 132 L Potassium 4.2 Chloride 103 Carbon Dioxide 23 Anion Gap 6 BUN 14 Creatinine 0.75 Est GFR ( Amer) 124.2 Est GFR (Non-Af Amer) 102.7 BUN/Creatinine Ratio 18.7 Glucose 188 H Lactic Acid Calcium 8.9 Iron < 15 L TIBC 200 L % Saturation 7 L Unsat Iron Binding < 185 Transferrin 143 L Ferritin 325.0 Total Bilirubin AST ALT Alkaline Phosphatase Troponin I 0.01 0.01 B-Natriuretic Peptide Total Protein Albumin Globulin Albumin/Globulin Ratio Triglycerides 37 Cholesterol 88 LDL Cholesterol 46 HDL Cholesterol 34.3 Vitamin B12 1092 H Folate > 20.00 TSH Urine Color Urine Appearance Urine pH Ur Specific Wil[place] Urine Protein Urine Ketones Urine Blood Urine Nitrate Urine Bilirubin Urine Urobilinogen Ur Leukocyte Esterase Urine WBC (Auto) Urine RBC (Auto) Urine Bacteria Urine Sperm Urine Glucose Urine Ascorbic Acid Influenza A (Rapid) Influenza B (Rapid) Microbiology and Other Data: Microbiology 02/04/18 18:23 Influenza Types A,B Antigen - Final Nasal Specimen received for Influenza A/B Molecular testing EKG Data: ns no acute st t changes Assess/Plan/Problems-Billing Assessment: this is a 72 yr old wm with hx of cva copd quit cig smoke 07/2017 but not on oxygen prior to admission was broght in after one day hx of fever to 101.6 and chills pt had an episode of choking with meds following by coughing one week ago has been coughing with yellowish sputum --- > chest xray + lll pna - Patient Problems (1) Left upper lobe consolidation Comment: - Left upper lobe consolidation/density noted on xray and again on repeat CT. This lung also had bronch and PET recently for finding in lower lobe. - Dr Llanos consulting and plan for ultrasound guided biopsy with IR on Thursday. - Hold Plavix (2) COPD (chronic obstructive pulmonary disease) Comment: - Supplemental O2 as needed - Currently O2 wnl on room air - Cont albuteral and Zosyn (3) Pneumonia Comment: - Cont zosyn - Check sputum - Urine legionella and strep negative (4) SOB (shortness of breath) Comment: - Improving - Echo obtained and no acute findings - Cont tele - Cont supportive care (5) CVA (cerebral vascular accident) Comment: - Stable - Swallow eval completed and diet ordered accordingly (6) DVT prophylaxis Comment: - heparin tid (7) Full code status Comment: - Full Code Status and Disposition: Discharge home when medically stable Attending: Dre Mays
[2018-02-05] MEDS ORDERED: NS 0.9% 500 ML* 500 ML IV ONE (19:58)
[2018-02-05] MEDS: Ezetimibe TAB* 10 MG PO SCH (20:40)
[2018-02-05] MEDS: CMCS: Simvastatin TAB(NF) 20 MG TAB PO SCH (20:40)
[2018-02-05] MEDS: NS 0.9% 1000 ML* 1,000 ML IV SCH (21:07)
[2018-02-06] MEDS ORDERED: NS 0.9% 1000 ML* 1,000 ML IV ONE (00:23)
[2018-02-06] MEDS: Piperacillin/Tazobac ADVAN(*) 3.375 GM in NS 0.9% 100 ML* 100 ML IVPB SCH ×3 (00:25→17:16)
[2018-02-06] MEDS ORDERED: Baclofen TAB* 10 MG PO STA (02:44)
[2018-02-06 05:40] LABS: ABS Basophils 0 10^3/ul (0-0.2); ABS Eosinophils 0 10^3/ul (0-0.6); ABS Lymphocytes 0.9 10^3/ul (1.0-4.8); ABS Monocytes 0.9 10^3/ul (0-0.8); ABS Neutrophils 12.9 10^3/ul (1.5-7.7); ABS Nucleated RBC 0 10^3/ul; Eosinophil % 0 %; Hematocrit 28 % (42-52); Hemoglobin 9.2 g/dl (14.0-18.0); Mean Corpuscular HGB Conc 33 g/dl (31-36); Mean Corpuscular Hemoglobin 33 pg (27-31); Mean Corpuscular Volume 98 fL (80-94); Mean Platelet Volume 7.2 fL (7.4-10.4); Nucleated Red Blood Cells % 0; Platelet Count 470 10^3/ul (150-450); Red Blood Count 2.81 10^6/ul (4.00-5.40); Red Cell Distribution Width 15 % (10.5-15); White Blood Count 14.7 10^3/ul (3.5-10.8)
[2018-02-06 06:01] LABS: BUN/Creatinine Ratio 24.7 (8-20); Calcium 8.6 mg/dL (8.6-10.3); EGFR Non-African American 88.9 (>60); Potassium 3.8 mmol/L (3.5-5.0)
[2018-02-06] MEDS: NS 0.9% 1000 ML* 1,000 ML IV SCH (09:19)
[2018-02-06] MEDS: FLUoxetine CAP* 20 MG PO SCH (09:20)
[2018-02-06] MEDS: Cholecalciferol TAB* 400 UNIT PO SCH (09:20)
--- NOTE | 2018-02-06 15:07 | PN ---
Progress Note - Progress Note Date of Service: 02/06/18 - Pulm f/u note Note: Pt seen and examined at bedside. Overnight events noted Pt with episode of hypotension that improved with fluid bolus. Pt reports feeling better this am. Having intermittent cough with sputum production. Active Medications Generic Name Dose Route Start Last Admin Trade Name Freq PRN Reason Stop Dose Admin Acetaminophen 650 mg 02/04/18 20:34 Tylenol Tab* PO Q4H PRN FEVER/PAIN Albuterol 2.5 mg 02/04/18 19:41 Ventolin 2.5 Mg/3 Ml Neb.Florinda* INH Q2H PRN SOB/WHEEZING Cholecalciferol 400 unit 02/05/18 09:00 02/06/18 09:20 Vitamin D Tab* PO 400 unit QAM MADELINE Administration Cyclobenzaprine HCl 10 mg 02/04/18 19:32 02/06/18 00:31 Flexeril Tab* PO 10 mg TID PRN Administration muscle spasm Docusate Sodium 100 mg 02/04/18 19:32 Colace Cap* PO BID PRN CONSTIPATION Ezetimibe 10 mg 02/04/18 23:30 02/05/18 20:40 Zetia Tab* PO 10 mg BEDTIME MADELINE Administration Fluoxetine HCl 20 mg 02/05/18 09:00 02/06/18 09:20 Prozac Cap* PO 20 mg QAM MADELINE Administration Guaifenesin/Dextromethorphan 5 ml 02/04/18 19:42 Robitussin Dm* PO Q4H PRN COUGH Sodium Chloride 1,000 mls @ 100 mls/hr 02/04/18 19:30 02/06/18 09:19 Ns 0.9% 1000 Ml* IV 100 mls/hr PER RATE MADELINE Administration Piperacillin Sod/Tazobactam 100 mls @ 25 mls/hr 02/05/18 00:30 02/06/18 09:19 Sod 3.375 gm/ Sodium Chloride IVPB 25 mls/hr Q8H MADELINE Administration Simvastatin 40 mg 02/04/18 23:30 02/05/18 20:40 Zocor(Nf) PO 40 mg BEDTIME MADELINE Administration Vital Signs Temp Pulse Resp BP Pulse Ox 97.5 F 62 18 109/65 97 02/06/18 07:19 02/06/18 07:19 02/06/18 11:15 02/06/18 07:19 02/06/18 07:19 O/E: Pt in NAD HEENT: PERRLA, nO JVD Lungs: Dimnished air entry at bases, distant breath sounds CVS: S1, S2+, regular Abd: Soft, BS+ Ext: Normal ROM Neuro: Rt hemiparesis+, alert, awake Skin: No rash Laboratory Results - last 24 hr 02/06/18 02/06/18 02/06/18 04:27 04:27 04:27 WBC 14.7 H RBC 2.81 L Hgb 9.2 L Hct 28 L MCV 98 H MCH 33 H MCHC 33 RDW 15 Plt Count 470 H MPV 7.2 L Neut % (Auto) 87.9 Lymph % (Auto) 6.0 [place] % (Auto) 6.1 Eos % (Auto) 0 Baso % (Auto) 0 Absolute Neuts (auto) 12.9 H Absolute Lymphs (auto) 0.9 L Absolute Monos (auto) 0.9 H Absolute Eos (auto) 0 Absolute Basos (auto) 0 Absolute Nucleated RBC 0 Nucleated RBC % 0 Sodium 135 Potassium 3.8 Chloride 108 Carbon Dioxide 21 L Anion Gap 6 BUN 21 Creatinine 0.85 Est GFR ( Amer) 107.5 Est GFR (Non-Af Amer) 88.9 BUN/Creatinine Ratio 24.7 H Glucose 135 H Lactic Acid 0.[address] chest: Was personally reviewed by me and with pt and his daughter at bedside. Pt with dense consolidation in [place] in sub-pleural location with evidence of air fluid level, increased in comparison to prior CT I/R: 72 y o m with h/o squamous cell cancer of oral cavity, CVA, COPD, quit cig smoking 07/2017, recurrent PNA recently a/w fever of 101.6 , chills, preceded by episode of choking with meds following coughing one week ago has been coughing with yellowish sputum --- > chest xray showed left sided PNA Pt improving on abx, CT chest findings concerning for lung abscess versus lung cancer in setting of prior malignancy and smoking history given interval increase in size Pt to have U/S guided biopsy through IR, possibly on Thursday Pt was on Plavix, which would be held for 3 days by Thursday It depends on IR if comfortable to do procedure with Plavix not being off for 5 days on Thursday Will plan for NPO after midnight Thursday night To f/u with IR on Thursday morning If doesnot happen on Thursday, likely would be scheduled for Thursday If cx suggestive of abscess will need longer antibiotic course If positive for cancer, will complete 7 day course for PNA Above was discussed in detail with pt and his daughter and they are agreeable. Above was also discussed in detail with Gunjan Lamb [employer]SC[employer] MANAGER yesterday
--- NOTE | 2018-02-06 17:32 | PN ---
Subjective Date of Service: 02/06/18 Interval History: Sitting in bed on assessment with daughter (who is primary animal care technician) at bedside. Reports he feels improved. Reports occasional productive cough. Denies sob, cp, palpitations, n/v/d. Objective Active Medications: Acetaminophen (Tylenol Tab*) 650 mg PO Q4H PRN PRN Reason: FEVER/PAIN Albuterol (Ventolin 2.5 Mg/3 Ml Neb.Florinda*) 2.5 mg INH Q2H PRN PRN Reason: SOB/WHEEZING Cholecalciferol (Vitamin D Tab*) 400 unit PO QAM [facility] Last Admin: 02/06/18 09:20 Dose: 400 unit Cyclobenzaprine HCl (Flexeril Tab*) 10 mg PO TID PRN PRN Reason: muscle spasm Last Admin: 02/06/18 00:31 Dose: 10 mg Docusate Sodium (Colace Cap*) 100 mg PO BID PRN PRN Reason: CONSTIPATION Ezetimibe (Zetia Tab*) 10 mg PO BEDTIME [facility] Last Admin: 02/05/18 20:40 Dose: 10 mg Fluoxetine HCl (Prozac Cap*) 20 mg PO QAM [facility] Last Admin: 02/06/18 09:20 Dose: 20 mg Guaifenesin/Dextromethorphan (Robitussin Dm*) 5 ml PO Q4H PRN PRN Reason: COUGH Sodium Chloride (Ns 0.9% 1000 Ml*) 1,000 mls @ 100 mls/hr IV PER RATE [facility] Last Admin: 02/06/18 09:19 Dose: 100 mls/hr Piperacillin Sod/Tazobactam (Sod 3.375 gm/ Sodium Chloride) 100 mls @ 25 mls/ hr IVPB Q8H [facility] Last Admin: 02/06/18 17:16 Dose: 25 mls/hr Simvastatin (Zocor(Nf)) 40 mg PO BEDTIME [facility] Last Admin: 02/05/18 20:40 Dose: 40 mg Vital Signs - 8 hr 02/06/18 02/06/18 02/06/18 11:15 15:14 15:37 Temperature 97.0 F 97.2 F Pulse Rate 59 Respiratory 18 20 Rate Blood Pressure 89/57 107/64 (mmHg) O2 Sat by Pulse 100 Oximetry Oxygen Devices in Use Now: None Result Diagrams: 02/06/18 04:27 02/06/18 04:27 Additional Lab and Data: Laboratory Results - last 24 hr 02/04/18 02/04/18 02/04/18 18:41 19:23 19:24 WBC 18.0 H RBC 2.94 L Hgb 9.7 L Hct 29 L MCV 98 H MCH 33 H MCHC 34 RDW 15 Plt Count 467 H MPV 7.1 L Neut % (Auto) 86.6 Lymph % (Auto) 6.0 [place] % (Auto) 6.3 Eos % (Auto) 0.7 Baso % (Auto) 0.4 Absolute Neuts (auto) 15.6 H Absolute Lymphs (auto) 1.1 Absolute Monos (auto) 1.1 H Absolute Eos (auto) 0.1 Absolute Basos (auto) 0.1 Absolute Nucleated RBC 0 Nucleated RBC % 0.1 INR (Anticoag Therapy) 1.25 H APTT 30.6 Sodium Potassium Chloride Carbon Dioxide Anion Gap BUN Creatinine Est GFR ( Amer) Est GFR (Non-Af Amer) BUN/Creatinine Ratio Glucose Lactic Acid Calcium Iron TIBC % Saturation Unsat Iron Binding Transferrin Ferritin Total Bilirubin AST ALT Alkaline Phosphatase Troponin I B-Natriuretic Peptide Total Protein Albumin Globulin Albumin/Globulin Ratio Triglycerides Cholesterol LDL Cholesterol HDL Cholesterol Vitamin B12 Folate TSH Urine Color Urine Appearance Urine pH Ur Specific [place] Urine Protein Urine Ketones Urine Blood Urine Nitrate Urine Bilirubin Urine Urobilinogen Ur Leukocyte Esterase Urine WBC (Auto) Urine RBC (Auto) Urine Bacteria Urine Sperm Urine Glucose Urine Ascorbic Acid Influenza A (Rapid) Negative Influenza B (Rapid) Negative 02/04/18 02/04/18 02/04/18 19:24 19:24 19:25 WBC RBC Hgb Hct MCV MCH MCHC RDW Plt Count MPV Neut % (Auto) Lymph % (Auto) [place] % (Auto) Eos % (Auto) Baso % (Auto) Absolute Neuts (auto) Absolute Lymphs (auto) Absolute Monos (auto) Absolute Eos (auto) Absolute Basos (auto) Absolute Nucleated RBC Nucleated RBC % INR (Anticoag Therapy) APTT Sodium 127 L Potassium 4.0 Chloride 99 L Carbon Dioxide 23 Anion Gap 5 BUN 14 Creatinine 0.83 Est GFR ( Amer) 110.5 Est GFR (Non-Af Amer) 91.3 BUN/Creatinine Ratio 16.9 Glucose 105 H Lactic Acid 0.7 Calcium 8.4 L Iron TIBC % Saturation Unsat Iron Binding Transferrin Ferritin Total Bilirubin 0.50 AST 22 ALT 33 Alkaline Phosphatase 59 Troponin I 0.01 B-Natriuretic Peptide 106 H Total Protein 6.4 Albumin 2.6 L Globulin 3.8 Albumin/Globulin Ratio 0.7 L Triglycerides Cholesterol LDL Cholesterol HDL Cholesterol Vitamin B12 Folate TSH 3.36 Urine Color Urine Appearance Urine pH Ur Specific [place] Urine Protein Urine Ketones Urine Blood Urine Nitrate Urine Bilirubin Urine Urobilinogen Ur Leukocyte Esterase Urine WBC (Auto) Urine RBC (Auto) Urine Bacteria Urine Sperm Urine Glucose Urine Ascorbic Acid Influenza A (Rapid) Influenza B (Rapid) 02/04/18 02/04/18 02/04/18 19:42 20:42 23:36 WBC RBC Hgb Hct MCV MCH MCHC RDW Plt Count MPV Neut % (Auto) Lymph % (Auto) [place] % (Auto) Eos % (Auto) Baso % (Auto) Absolute Neuts (auto) Absolute Lymphs (auto) Absolute Monos (auto) Absolute Eos (auto) Absolute Basos (auto) Absolute Nucleated RBC Nucleated RBC % INR (Anticoag Therapy) APTT Sodium Potassium Chloride Carbon Dioxide Anion Gap BUN Creatinine Est GFR ( Amer) Est GFR (Non-Af Amer) BUN/Creatinine Ratio Glucose Lactic Acid Calcium Iron TIBC % Saturation Unsat Iron Binding Transferrin Ferritin Total Bilirubin AST ALT Alkaline Phosphatase Troponin I 0.01 0.01 B-Natriuretic Peptide Total Protein Albumin Globulin Albumin/Globulin Ratio Triglycerides Cholesterol LDL Cholesterol HDL Cholesterol Vitamin B12 Folate TSH Urine Color Yellow Urine Appearance Clear Urine pH 7.0 Ur Specific [place] 1.016 Urine Protein 2+(100 mg/dl) A Urine Ketones Negative Urine Blood Negative Urine Nitrate Negative Urine Bilirubin Negative Urine Urobilinogen Negative Ur Leukocyte Esterase Negative Urine WBC (Auto) Trace(0-5/hpf) Urine RBC (Auto) Trace(0-2/hpf) Urine Bacteria Absent Urine Sperm Present A Urine Glucose Negative Urine Ascorbic Acid * A Influenza A (Rapid) Influenza B (Rapid) 02/05/18 02/05/18 02/05/18 02:46 06:11 06:11 WBC 14.5 H RBC 3.01 L Hgb 9.7 L Hct 30 L MCV 98 H MCH 32 H MCHC 33 RDW 15 Plt Count 464 H MPV 7.3 L Neut % (Auto) 94.8 Lymph % (Auto) 2.9 [place] % (Auto) 2.1 Eos % (Auto) 0 Baso % (Auto) 0.2 Absolute Neuts (auto) 13.7 H Absolute Lymphs (auto) 0.4 L Absolute Monos (auto) 0.3 Absolute Eos (auto) 0 Absolute Basos (auto) 0 Absolute Nucleated RBC 0 Nucleated RBC % 0 INR (Anticoag Therapy) APTT Sodium 132 L Potassium 4.2 Chloride 103 Carbon Dioxide 23 Anion Gap 6 BUN 14 Creatinine 0.75 Est GFR ( Amer) 124.2 Est GFR (Non-Af Amer) 102.7 BUN/Creatinine Ratio 18.7 Glucose 188 H Lactic Acid Calcium 8.9 Iron < 15 L TIBC 200 L % Saturation 7 L Unsat Iron Binding < 185 Transferrin 143 L Ferritin 325.0 Total Bilirubin AST ALT Alkaline Phosphatase Troponin I 0.01 0.01 B-Natriuretic Peptide Total Protein Albumin Globulin Albumin/Globulin Ratio Triglycerides 37 Cholesterol 88 LDL Cholesterol 46 HDL Cholesterol 34.3 Vitamin B12 1092 H Folate > 20.00 TSH Urine Color Urine Appearance Urine pH Ur Specific [place] Urine Protein Urine Ketones Urine Blood Urine Nitrate Urine Bilirubin Urine Urobilinogen Ur Leukocyte Esterase Urine WBC (Auto) Urine RBC (Auto) Urine Bacteria Urine Sperm Urine Glucose Urine Ascorbic Acid Influenza A (Rapid) Influenza B (Rapid) Microbiology and Other Data: Microbiology 02/04/18 18:23 Influenza Types A,B Antigen - Final Nasal Specimen received for Influenza A/B Molecular testing EKG Data: ns no acute st t changes Assess/Plan/Problems-Billing Assessment: this is a 72 yr old wm with hx of cva copd quit cig smoke 07/2017 but not on oxygen prior to admission was broght in after one day hx of fever to 101.6 and chills pt had an episode of choking with meds following by coughing one week ago has been coughing with yellowish sputum --- > chest xray + lll pna - Patient Problems (1) Left upper lobe consolidation Comment: - Per Dr Llanos: CT chest findings concerning for lung abscess versus lung cancer; U/S guided biopsy with IR hopefully Thursday (we need to contact IR first thing Thursday morning) - Plavis is being held in anticipation for biopsy, which would be held for 3 days by Thursday - NPO after midnight Thursday night (2) COPD (chronic obstructive pulmonary disease) Comment: - Currently O2 wnl on room air - Cont albuteral and Zosyn (3) Pneumonia Comment: - Cont zosyn - Check sputum - Urine legionella and strep negative (4) SOB (shortness of breath) Comment: - Improving - Echo obtained and no acute findings - Cont tele - Cont supportive care (5) CVA (cerebral vascular accident) Comment: - Stable - Swallow eval completed and diet ordered accordingly (6) DVT prophylaxis Comment: - heparin tid (7) Full code status Comment: - Full Code Status and Disposition: Discharge home when medically stable Attending: Vani Moran
[2018-02-06] MEDS ORDERED: Melatonin 3 MG TAB PO ONE (20:42)
[2018-02-06] MEDS: CMCS: Simvastatin TAB(NF) 20 MG TAB PO SCH (20:53)
[2018-02-06] MEDS: Melatonin 3 MG TAB PO SCH (20:54)
[2018-02-06] MEDS: Ezetimibe TAB* 10 MG PO SCH (20:54)
[2018-02-07] MEDS: Piperacillin/Tazobac ADVAN(*) 3.375 GM in NS 0.9% 100 ML* 100 ML IVPB SCH ×3 (00:03→16:35)
[2018-02-07] MEDS: NS 0.9% 1000 ML* 1,000 ML IV SCH (05:21)
[2018-02-07 06:44] LABS: ABS Basophils 0.1 10^3/ul (0-0.2); ABS Eosinophils 0.2 10^3/ul (0-0.6); ABS Lymphocytes 1.1 10^3/ul (1.0-4.8); ABS Monocytes 1.2 10^3/ul (0-0.8); ABS Neutrophils 12.2 10^3/ul (1.5-7.7); ABS Nucleated RBC 0 10^3/ul; Eosinophil % 1.6 %; Hematocrit 27 % (42-52); Lymphocyte % 7.5 %; Mean Corpuscular HGB Conc 33 g/dl (31-36); Mean Corpuscular Hemoglobin 33 pg (27-31); Mean Corpuscular Volume 99 fL (80-94); Mean Platelet Volume 6.9 fL (7.4-10.4); Nucleated Red Blood Cells % 0; Platelet Count 425 10^3/ul (150-450); Red Blood Count 2.72 10^6/ul (4.00-5.40); Red Cell Distribution Width 16 % (10.5-15); White Blood Count 14.8 10^3/ul (3.5-10.8)
[2018-02-07 07:09] LABS: BUN/Creatinine Ratio 20.5 (8-20); Calcium 8.4 mg/dL (8.6-10.3); EGFR Non-African American 91.3 (>60); Potassium 3.7 mmol/L (3.5-5.0)
[2018-02-07] MEDS: Cholecalciferol TAB* 400 UNIT PO SCH (09:20)
[2018-02-07] MEDS: FLUoxetine CAP* 20 MG PO SCH (09:20)
--- NOTE | 2018-02-07 17:12 | PN ---
Subjective Date of Service: 02/07/18 Interval History: SOB improving.Denies any complaints.Aware of needing biopsy Objective Active Medications: Acetaminophen (Tylenol Tab*) 650 mg PO Q4H PRN PRN Reason: FEVER/PAIN Albuterol (Ventolin 2.5 Mg/3 Ml Neb.Florinda*) 2.5 mg INH Q2H PRN PRN Reason: SOB/WHEEZING Cholecalciferol (Vitamin D Tab*) 400 unit PO QAM [facility] Last Admin: 02/07/18 09:20 Dose: 400 unit Cyclobenzaprine HCl (Flexeril Tab*) 10 mg PO TID PRN PRN Reason: muscle spasm Last Admin: 02/06/18 00:31 Dose: 10 mg Docusate Sodium (Colace Cap*) 100 mg PO BID PRN PRN Reason: CONSTIPATION Last Admin: 02/07/18 09:20 Dose: 100 mg Ezetimibe (Zetia Tab*) 10 mg PO BEDTIME [facility] Last Admin: 02/06/18 20:54 Dose: 10 mg Fluoxetine HCl (Prozac Cap*) 20 mg PO QAM [facility] Last Admin: 02/07/18 09:20 Dose: 20 mg Guaifenesin/Dextromethorphan (Robitussin Dm*) 5 ml PO Q4H PRN PRN Reason: COUGH Sodium Chloride (Ns 0.9% 1000 Ml*) 1,000 mls @ 100 mls/hr IV PER RATE [facility] Last Admin: 02/07/18 05:21 Dose: 100 mls/hr Piperacillin Sod/Tazobactam (Sod 3.375 gm/ Sodium Chloride) 100 mls @ 25 mls/ hr IVPB Q8H [facility] Last Admin: 02/07/18 16:35 Dose: 25 mls/hr Melatonin (Melatonin) 3 mg PO BEDTIME [facility]; Protocol Last Admin: 02/06/18 20:54 Dose: Not Given Simvastatin (Zocor(Nf)) 40 mg PO BEDTIME [facility] Last Admin: 02/06/18 20:53 Dose: 40 mg Vital Signs - 8 hr 02/07/18 02/07/18 02/07/18 09:36 11:11 15:08 Temperature 97.9 F Pulse Rate 66 67 Respiratory 20 18 14 Rate Blood Pressure 123/72 108/70 (mmHg) O2 Sat by Pulse 98 99 Oximetry Oxygen Devices in Use Now: None Eyes: No Scleral Icterus Ears/Nose/Mouth/Throat: NL Teeth, Lips, Gums Neck: NL Appearance and Movements; NL JVP Respiratory: Symmetrical Chest Expansion and Respiratory Effort, Clear to Auscultation Cardiovascular: NL Sounds; No Murmurs; No JVD, RRR Extremities: No Edema Skin: No Rash or Ulcers Neurological: Alert and Oriented x 3 Result Diagrams: 02/07/18 06:19 02/07/18 06:19 Additional Lab and Data: Laboratory Results - last 24 hr 02/04/18 02/04/18 02/04/18 18:41 19:23 19:24 WBC 18.0 H RBC 2.94 L Hgb 9.7 L Hct 29 L MCV 98 H MCH 33 H MCHC 34 RDW 15 Plt Count 467 H MPV 7.1 L Neut % (Auto) 86.6 Lymph % (Auto) 6.0 [place] % (Auto) 6.3 Eos % (Auto) 0.7 Baso % (Auto) 0.4 Absolute Neuts (auto) 15.6 H Absolute Lymphs (auto) 1.1 Absolute Monos (auto) 1.1 H Absolute Eos (auto) 0.1 Absolute Basos (auto) 0.1 Absolute Nucleated RBC 0 Nucleated RBC % 0.1 INR (Anticoag Therapy) 1.25 H APTT 30.6 Sodium Potassium Chloride Carbon Dioxide Anion Gap BUN Creatinine Est GFR ( Amer) Est GFR (Non-Af Amer) BUN/Creatinine Ratio Glucose Lactic Acid Calcium Iron TIBC % Saturation Unsat Iron Binding Transferrin Ferritin Total Bilirubin AST ALT Alkaline Phosphatase Troponin I B-Natriuretic Peptide Total Protein Albumin Globulin Albumin/Globulin Ratio Triglycerides Cholesterol LDL Cholesterol HDL Cholesterol Vitamin B12 Folate TSH Urine Color Urine Appearance Urine pH Ur Specific [place] Urine Protein Urine Ketones Urine Blood Urine Nitrate Urine Bilirubin Urine Urobilinogen Ur Leukocyte Esterase Urine WBC (Auto) Urine RBC (Auto) Urine Bacteria Urine Sperm Urine Glucose Urine Ascorbic Acid Influenza A (Rapid) Negative Influenza B (Rapid) Negative 02/04/18 02/04/18 02/04/18 19:24 19:24 19:25 WBC RBC Hgb Hct MCV MCH MCHC RDW Plt Count MPV Neut % (Auto) Lymph % (Auto) [place] % (Auto) Eos % (Auto) Baso % (Auto) Absolute Neuts (auto) Absolute Lymphs (auto) Absolute Monos (auto) Absolute Eos (auto) Absolute Basos (auto) Absolute Nucleated RBC Nucleated RBC % INR (Anticoag Therapy) APTT Sodium 127 L Potassium 4.0 Chloride 99 L Carbon Dioxide 23 Anion Gap 5 BUN 14 Creatinine 0.83 Est GFR ( Amer) 110.5 Est GFR (Non-Af Amer) 91.3 BUN/Creatinine Ratio 16.9 Glucose 105 H Lactic Acid 0.7 Calcium 8.4 L Iron TIBC % Saturation Unsat Iron Binding Transferrin Ferritin Total Bilirubin 0.50 AST 22 ALT 33 Alkaline Phosphatase 59 Troponin I 0.01 B-Natriuretic Peptide 106 H Total Protein 6.4 Albumin 2.6 L Globulin 3.8 Albumin/Globulin Ratio 0.7 L Triglycerides Cholesterol LDL Cholesterol HDL Cholesterol Vitamin B12 Folate TSH 3.36 Urine Color Urine Appearance Urine pH Ur Specific [place] Urine Protein Urine Ketones Urine Blood Urine Nitrate Urine Bilirubin Urine Urobilinogen Ur Leukocyte Esterase Urine WBC (Auto) Urine RBC (Auto) Urine Bacteria Urine Sperm Urine Glucose Urine Ascorbic Acid Influenza A (Rapid) Influenza B (Rapid) 02/04/18 02/04/18 02/04/18 19:42 20:42 23:36 WBC RBC Hgb Hct MCV MCH MCHC RDW Plt Count MPV Neut % (Auto) Lymph % (Auto) [place] % (Auto) Eos % (Auto) Baso % (Auto) Absolute Neuts (auto) Absolute Lymphs (auto) Absolute Monos (auto) Absolute Eos (auto) Absolute Basos (auto) Absolute Nucleated RBC Nucleated RBC % INR (Anticoag Therapy) APTT Sodium Potassium Chloride Carbon Dioxide Anion Gap BUN Creatinine Est GFR ( Amer) Est GFR (Non-Af Amer) BUN/Creatinine Ratio Glucose Lactic Acid Calcium Iron TIBC % Saturation Unsat Iron Binding Transferrin Ferritin Total Bilirubin AST ALT Alkaline Phosphatase Troponin I 0.01 0.01 B-Natriuretic Peptide Total Protein Albumin Globulin Albumin/Globulin Ratio Triglycerides Cholesterol LDL Cholesterol HDL Cholesterol Vitamin B12 Folate TSH Urine Color Yellow Urine Appearance Clear Urine pH 7.0 Ur Specific [place] 1.016 Urine Protein 2+(100 mg/dl) A Urine Ketones Negative Urine Blood Negative Urine Nitrate Negative Urine Bilirubin Negative Urine Urobilinogen Negative Ur Leukocyte Esterase Negative Urine WBC (Auto) Trace(0-5/hpf) Urine RBC (Auto) Trace(0-2/hpf) Urine Bacteria Absent Urine Sperm Present A Urine Glucose Negative Urine Ascorbic Acid * A Influenza A (Rapid) Influenza B (Rapid) 02/05/18 02/05/18 02/05/18 02:46 06:11 06:11 WBC 14.5 H RBC 3.01 L Hgb 9.7 L Hct 30 L MCV 98 H MCH 32 H MCHC 33 RDW 15 Plt Count 464 H MPV 7.3 L Neut % (Auto) 94.8 Lymph % (Auto) 2.9 [place] % (Auto) 2.1 Eos % (Auto) 0 Baso % (Auto) 0.2 Absolute Neuts (auto) 13.7 H Absolute Lymphs (auto) 0.4 L Absolute Monos (auto) 0.3 Absolute Eos (auto) 0 Absolute Basos (auto) 0 Absolute Nucleated RBC 0 Nucleated RBC % 0 INR (Anticoag Therapy) APTT Sodium 132 L Potassium 4.2 Chloride 103 Carbon Dioxide 23 Anion Gap 6 BUN 14 Creatinine 0.75 Est GFR ( Amer) 124.2 Est GFR (Non-Af Amer) 102.7 BUN/Creatinine Ratio 18.7 Glucose 188 H Lactic Acid Calcium 8.9 Iron < 15 L TIBC 200 L % Saturation 7 L Unsat Iron Binding < 185 Transferrin 143 L Ferritin 325.0 Total Bilirubin AST ALT Alkaline Phosphatase Troponin I 0.01 0.01 B-Natriuretic Peptide Total Protein Albumin Globulin Albumin/Globulin Ratio Triglycerides 37 Cholesterol 88 LDL Cholesterol 46 HDL Cholesterol 34.3 Vitamin B12 1092 H Folate > 20.00 TSH Urine Color Urine Appearance Urine pH Ur Specific [place] Urine Protein Urine Ketones Urine Blood Urine Nitrate Urine Bilirubin Urine Urobilinogen Ur Leukocyte Esterase Urine WBC (Auto) Urine RBC (Auto) Urine Bacteria Urine Sperm Urine Glucose Urine Ascorbic Acid Influenza A (Rapid) Influenza B (Rapid) Microbiology and Other Data: Microbiology 02/04/18 18:23 Influenza Types A,B Antigen - Final Nasal Specimen received for Influenza A/B Molecular testing EKG Data: ns no acute st t changes Assess/Plan/Problems-Billing Assessment: this is a 72 yr old wm with hx of cva copd quit cig smoke 07/2017 but not on oxygen prior to admission was broght in after one day hx of fever to 101.6 and chills pt had an episode of choking with meds following by coughing one week ago has been coughing with yellowish sputum --- > chest xray + lll pna - Patient Problems (1) Left upper lobe consolidation Current Visit: Yes Status: Acute Code(s): J18.1 - LOBAR PNEUMONIA, UNSPECIFIED ORGANISM SNOMED Code(s): 33390461 Comment: - Per Dr Llanos: CT chest findings concerning for lung abscess versus lung cancer; U/S guided biopsy with IR hopefully Thursday (we need to contact IR first thing Thursday morning) - Plavis is being held in anticipation for biopsy, which would be held for 3 days by Thursday - NPO after midnight Thursday night (2) Pneumonia Current Visit: Yes Status: Acute Code(s): J18.9 - PNEUMONIA, UNSPECIFIED ORGANISM SNOMED Code(s): 182028843 Comment: - Cont zosyn - Check sputum - Urine legionella and strep negative (3) COPD (chronic obstructive pulmonary disease) Current Visit: Yes Status: Acute Code(s): J44.9 - CHRONIC OBSTRUCTIVE PULMONARY DISEASE, UNSPECIFIED SNOMED Code(s): 05993862 Comment: - Currently O2 wnl on room air - Cont albuteral and Zosyn (4) CVA (cerebral vascular accident) Current Visit: Yes Status: Acute Code(s): I63.9 - CEREBRAL INFARCTION, UNSPECIFIED SNOMED Code(s): 985656672 Comment: - Stable - Swallow eval completed and diet ordered accordingly (5) DVT prophylaxis Current Visit: Yes Status: Acute Code(s): AFM6517 - SNOMED Code(s): 755895397 Comment: - heparin tid (6) SOB (shortness of breath) Current Visit: Yes Status: Acute Code(s): R06.02 - SHORTNESS OF BREATH SNOMED Code(s): 407887814 Comment: - Improving - Echo obtained and no acute findings - Cont tele - Cont supportive care (7) Full code status Current Visit: Yes Status: Acute Code(s): Z78.9 - OTHER SPECIFIED HEALTH STATUS SNOMED Code(s): 315620356 Comment: - Full Code Status and Disposition: Discharge home when medically stable
[2018-02-07] MEDS ORDERED: Senna TAB PO PRN (18:32)
[2018-02-07] MEDS ORDERED: Polyethylene Glycol 3350 BTL* 238 GM BTL PO ONE (18:32)
[2018-02-07] MEDS ORDERED: Polyethylene Glycol 3350* 17 GM PACKET PO ONE (19:00)
[2018-02-07] MEDS: CMCS: Simvastatin TAB(NF) 20 MG TAB PO SCH (20:06)
[2018-02-07] MEDS: Ezetimibe TAB* 10 MG PO SCH (20:07)
[2018-02-07] MEDS: Docusate CAP* 100 MG PO SCH (20:07)
[2018-02-07] MEDS: Melatonin 3 MG TAB PO SCH (20:07)
[2018-02-08] MEDS: Piperacillin/Tazobac ADVAN(*) 3.375 GM in NS 0.9% 100 ML* 100 ML IVPB SCH ×3 (01:20→16:54)
[2018-02-08] MEDS: NS 0.9% 1000 ML* 1,000 ML IV SCH ×2 (02:17→16:54)
[2018-02-08 07:58] LABS: ABS Basophils 0.1 10^3/ul (0-0.2); ABS Eosinophils 0.4 10^3/ul (0-0.6); ABS Lymphocytes 1.1 10^3/ul (1.0-4.8); ABS Monocytes 0.9 10^3/ul (0-0.8); ABS Neutrophils 8.7 10^3/ul (1.5-7.7); ABS Nucleated RBC 0 10^3/ul; Eosinophil % 3.9 %; Hematocrit 27 % (42-52); Hemoglobin 8.8 g/dl (14.0-18.0); Lymphocyte % 10.2 %; Mean Corpuscular HGB Conc 33 g/dl (31-36); Mean Corpuscular Hemoglobin 33 pg (27-31); Mean Corpuscular Volume 99 fL (80-94); Mean Platelet Volume 7.1 fL (7.4-10.4); Nucleated Red Blood Cells % 0; Platelet Count 434 10^3/ul (150-450); Red Blood Count 2.69 10^6/ul (4.00-5.40); Red Cell Distribution Width 15 % (10.5-15); White Blood Count 11.2 10^3/ul (3.5-10.8)
[2018-02-08 08:13] LABS: BUN/Creatinine Ratio 16.5 (8-20); Calcium 8.4 mg/dL (8.6-10.3); EGFR Non-African American 96.7 (>60); Potassium 3.6 mmol/L (3.5-5.0)
[2018-02-08] MEDS: FLUoxetine CAP* 20 MG PO SCH (09:49)
[2018-02-08] MEDS: Docusate CAP* 100 MG PO SCH ×2 (09:49→21:39)
[2018-02-08] MEDS: Cholecalciferol TAB* 400 UNIT PO SCH (09:49)
[2018-02-08 12:37] LABS: INR 1.06 (0.77-1.02)
[2018-02-08] MEDS ORDERED: fentaNYL* 50 MCG/ML 2 ML VIAL (100 MCG VIAL) ONE (12:41)
[2018-02-08] MEDS ORDERED: Naloxone* 0.4 MG/ML 1 ML VIAL ONE (12:41)
[2018-02-08] MEDS: Melatonin 3 MG TAB PO SCH (21:40)
[2018-02-08] MEDS: Ezetimibe TAB* 10 MG PO SCH (21:40)
[2018-02-08] MEDS: CMCS: Simvastatin TAB(NF) 20 MG TAB PO SCH (21:41)
--- NOTE | 2018-02-08 22:22 | PN ---
Subjective Date of Service: 02/08/18 Interval History: I saw Mr. Nieves when he got back from IR for the biopsy. He is feeling very good. Says the biopsy was painless. Breathing feels comfortable. No pain, no orthopnea, no cough. Objective Active Medications: Acetaminophen (Tylenol Tab*) 650 mg PO Q4H PRN PRN Reason: FEVER/PAIN Albuterol (Ventolin 2.5 Mg/3 Ml Neb.Florinda*) 2.5 mg INH Q2H PRN PRN Reason: SOB/WHEEZING Cholecalciferol (Vitamin D Tab*) 400 unit PO QAM [facility] Last Admin: 02/08/18 09:49 Dose: Not Given Cyclobenzaprine HCl (Flexeril Tab*) 10 mg PO TID PRN PRN Reason: muscle spasm Last Admin: 02/06/18 00:31 Dose: 10 mg Docusate Sodium (Colace Cap*) 100 mg PO BID [facility] Last Admin: 02/08/18 21:39 Dose: 100 mg Ezetimibe (Zetia Tab*) 10 mg PO BEDTIME [facility] Last Admin: 02/08/18 21:40 Dose: 10 mg Fluoxetine HCl (Prozac Cap*) 20 mg PO QAM [facility] Last Admin: 02/08/18 09:49 Dose: Not Given Guaifenesin/Dextromethorphan (Robitussin Dm*) 5 ml PO Q4H PRN PRN Reason: COUGH Last Admin: 02/07/18 22:05 Dose: 5 ml Sodium Chloride (Ns 0.9% 1000 Ml*) 1,000 mls @ 100 mls/hr IV PER RATE [facility] Last Admin: 02/08/18 16:54 Dose: 100 mls/hr Piperacillin Sod/Tazobactam (Sod 3.375 gm/ Sodium Chloride) 100 mls @ 25 mls/ hr IVPB Q8H [facility] Last Admin: 02/08/18 16:54 Dose: 25 mls/hr Melatonin (Melatonin) 3 mg PO BEDTIME [facility]; Protocol Last Admin: 02/08/18 21:40 Dose: 3 mg Senna (Senokot Tab*) 1 tab PO DAILY PRN PRN Reason: CONSTIPATION Simvastatin (Zocor(Nf)) 40 mg PO BEDTIME [facility] Last Admin: 02/08/18 21:41 Dose: 40 mg Vital Signs - 8 hr 02/08/18 02/08/18 02/08/18 14:25 15:03 16:12 Temperature 98.6 F 97.6 F 97.3 F Pulse Rate 63 66 71 Respiratory 18 22 Rate Blood Pressure 126/70 131/80 99/60 (mmHg) O2 Sat by Pulse 97 98 100 Oximetry 02/08/18 02/08/18 18:08 19:20 Temperature 98.0 F 97.4 F Pulse Rate 65 76 Respiratory 20 18 Rate Blood Pressure 136/78 112/73 (mmHg) O2 Sat by Pulse 100 100 Oximetry Oxygen Devices in Use Now: None Appearance: alert, well appearing. daughter at the bedside Eyes: No Scleral Icterus Ears/Nose/Mouth/Throat: NL Teeth, Lips, Gums Neck: NL Appearance and Movements; NL JVP, - - neck deformity from prior ca Respiratory: Symmetrical Chest Expansion and Respiratory Effort, - - left posterior chest wall biopsy site clean and covered Abdominal: NL Sounds; No Tenderness; No Distention Lymphatic: No Cervical Adenopathy Extremities: No Edema Skin: No Rash or Ulcers Neurological: Alert and Oriented x 3 Result Diagrams: 02/08/18 07:36 02/08/18 07:36 Additional Lab and Data: Laboratory Results - last 24 hr 02/04/18 02/04/18 02/04/18 18:41 19:23 19:24 WBC 18.0 H RBC 2.94 L Hgb 9.7 L Hct 29 L MCV 98 H MCH 33 H MCHC 34 RDW 15 Plt Count 467 H MPV 7.1 L Neut % (Auto) 86.6 Lymph % (Auto) 6.0 Ray % (Auto) 6.3 Eos % (Auto) 0.7 Baso % (Auto) 0.4 Absolute Neuts (auto) 15.6 H Absolute Lymphs (auto) 1.1 Absolute Monos (auto) 1.1 H Absolute Eos (auto) 0.1 Absolute Basos (auto) 0.1 Absolute Nucleated RBC 0 Nucleated RBC % 0.1 INR (Anticoag Therapy) 1.25 H APTT 30.6 Sodium Potassium Chloride Carbon Dioxide Anion Gap BUN Creatinine Est GFR ( Amer) Est GFR (Non-Af Amer) BUN/Creatinine Ratio Glucose Lactic Acid Calcium Iron TIBC % Saturation Unsat Iron Binding Transferrin Ferritin Total Bilirubin AST ALT Alkaline Phosphatase Troponin I B-Natriuretic Peptide Total Protein Albumin Globulin Albumin/Globulin Ratio Triglycerides Cholesterol LDL Cholesterol HDL Cholesterol Vitamin B12 Folate TSH Urine Color Urine Appearance Urine pH Ur Specific [place] Urine Protein Urine Ketones Urine Blood Urine Nitrate Urine Bilirubin Urine Urobilinogen Ur Leukocyte Esterase Urine WBC (Auto) Urine RBC (Auto) Urine Bacteria Urine Sperm Urine Glucose Urine Ascorbic Acid Influenza A (Rapid) Negative Influenza B (Rapid) Negative 02/04/18 02/04/18 02/04/18 19:24 19:24 19:25 WBC RBC Hgb Hct MCV MCH MCHC RDW Plt Count MPV Neut % (Auto) Lymph % (Auto) Ray % (Auto) Eos % (Auto) Baso % (Auto) Absolute Neuts (auto) Absolute Lymphs (auto) Absolute Monos (auto) Absolute Eos (auto) Absolute Basos (auto) Absolute Nucleated RBC Nucleated RBC % INR (Anticoag Therapy) APTT Sodium 127 L Potassium 4.0 Chloride 99 L Carbon Dioxide 23 Anion Gap 5 BUN 14 Creatinine 0.83 Est GFR ( Amer) 110.5 Est GFR (Non-Af Amer) 91.3 BUN/Creatinine Ratio 16.9 Glucose 105 H Lactic Acid 0.7 Calcium 8.4 L Iron TIBC % Saturation Unsat Iron Binding Transferrin Ferritin Total Bilirubin 0.50 AST 22 ALT 33 Alkaline Phosphatase 59 Troponin I 0.01 B-Natriuretic Peptide 106 H Total Protein 6.4 Albumin 2.6 L Globulin 3.8 Albumin/Globulin Ratio 0.7 L Triglycerides Cholesterol LDL Cholesterol HDL Cholesterol Vitamin B12 Folate TSH 3.36 Urine Color Urine Appearance Urine pH Ur Specific [place] Urine Protein Urine Ketones Urine Blood Urine Nitrate Urine Bilirubin Urine Urobilinogen Ur Leukocyte Esterase Urine WBC (Auto) Urine RBC (Auto) Urine Bacteria Urine Sperm Urine Glucose Urine Ascorbic Acid Influenza A (Rapid) Influenza B (Rapid) 02/04/18 02/04/18 02/04/18 19:42 20:42 23:36 WBC RBC Hgb Hct MCV MCH MCHC RDW Plt Count MPV Neut % (Auto) Lymph % (Auto) Ray % (Auto) Eos % (Auto) Baso % (Auto) Absolute Neuts (auto) Absolute Lymphs (auto) Absolute Monos (auto) Absolute Eos (auto) Absolute Basos (auto) Absolute Nucleated RBC Nucleated RBC % INR (Anticoag Therapy) APTT Sodium Potassium Chloride Carbon Dioxide Anion Gap BUN Creatinine Est GFR ( Amer) Est GFR (Non-Af Amer) BUN/Creatinine Ratio Glucose Lactic Acid Calcium Iron TIBC % Saturation Unsat Iron Binding Transferrin Ferritin Total Bilirubin AST ALT Alkaline Phosphatase Troponin I 0.01 0.01 B-Natriuretic Peptide Total Protein Albumin Globulin Albumin/Globulin Ratio Triglycerides Cholesterol LDL Cholesterol HDL Cholesterol Vitamin B12 Folate TSH Urine Color Yellow Urine Appearance Clear Urine pH 7.0 Ur Specific [place] 1.016 Urine Protein 2+(100 mg/dl) A Urine Ketones Negative Urine Blood Negative Urine Nitrate Negative Urine Bilirubin Negative Urine Urobilinogen Negative Ur Leukocyte Esterase Negative Urine WBC (Auto) Trace(0-5/hpf) Urine RBC (Auto) Trace(0-2/hpf) Urine Bacteria Absent Urine Sperm Present A Urine Glucose Negative Urine Ascorbic Acid * A Influenza A (Rapid) Influenza B (Rapid) 02/05/18 02/05/18 02/05/18 02:46 06:11 06:11 WBC 14.5 H RBC 3.01 L Hgb 9.7 L Hct 30 L MCV 98 H MCH 32 H MCHC 33 RDW 15 Plt Count 464 H MPV 7.3 L Neut % (Auto) 94.8 Lymph % (Auto) 2.9 Ray % (Auto) 2.1 Eos % (Auto) 0 Baso % (Auto) 0.2 Absolute Neuts (auto) 13.7 H Absolute Lymphs (auto) 0.4 L Absolute Monos (auto) 0.3 Absolute Eos (auto) 0 Absolute Basos (auto) 0 Absolute Nucleated RBC 0 Nucleated RBC % 0 INR (Anticoag Therapy) APTT Sodium 132 L Potassium 4.2 Chloride 103 Carbon Dioxide 23 Anion Gap 6 BUN 14 Creatinine 0.75 Est GFR ( Amer) 124.2 Est GFR (Non-Af Amer) 102.7 BUN/Creatinine Ratio 18.7 Glucose 188 H Lactic Acid Calcium 8.9 Iron < 15 L TIBC 200 L % Saturation 7 L Unsat Iron Binding < 185 Transferrin 143 L Ferritin 325.0 Total Bilirubin AST ALT Alkaline Phosphatase Troponin I 0.01 0.01 B-Natriuretic Peptide Total Protein Albumin Globulin Albumin/Globulin Ratio Triglycerides 37 Cholesterol 88 LDL Cholesterol 46 HDL Cholesterol 34.3 Vitamin B12 1092 H Folate > 20.00 TSH Urine Color Urine Appearance Urine pH Ur Specific [place] Urine Protein Urine Ketones Urine Blood Urine Nitrate Urine Bilirubin Urine Urobilinogen Ur Leukocyte Esterase Urine WBC (Auto) Urine RBC (Auto) Urine Bacteria Urine Sperm Urine Glucose Urine Ascorbic Acid Influenza A (Rapid) Influenza B (Rapid) Microbiology and Other Data: Microbiology 02/04/18 18:23 Influenza Types A,B Antigen - Final Nasal Specimen received for Influenza A/B Molecular testing EKG Data: ns no acute st t changes Assess/Plan/Problems-Billing Assessment: this is a 72 yr old wmanm with hx of cva copd quit cig smoke 07/2017 but not on oxygen prior to admission was broght in after one day hx of fever to 101.6 and chills pt had an episode of choking with meds following by coughing one week ago has been coughing with yellowish sputum, found to have a pna on CXR - Patient Problems (1) Left upper lobe consolidation Current Visit: Yes Status: Acute Code(s): J18.1 - LOBAR PNEUMONIA, UNSPECIFIED ORGANISM SNOMED Code(s): 32138521 Comment: abscess vs. malignancy? biopsied today will follow results-->can go home tomorrow with outpatient follow up (2) COPD (chronic obstructive pulmonary disease) Current Visit: Yes Status: Acute Code(s): J44.9 - CHRONIC OBSTRUCTIVE PULMONARY DISEASE, UNSPECIFIED SNOMED Code(s): 51897830 Comment: stable on room air no evidence of exacerbation (3) CVA (cerebral vascular accident) Current Visit: Yes Status: Acute Code(s): I63.9 - CEREBRAL INFARCTION, UNSPECIFIED SNOMED Code(s): 473191887 Comment: swallow eval recommended solids with extra gravies Status and Disposition: Discharge home when medically stable
[2018-02-09] MEDS: Piperacillin/Tazobac ADVAN(*) 3.375 GM in NS 0.9% 100 ML* 100 ML IVPB SCH ×2 (00:25→08:17)
[2018-02-09] MEDS: NS 0.9% 1000 ML* 1,000 ML IV SCH (08:17)
[2018-02-09] MEDS: Cholecalciferol TAB* 400 UNIT PO SCH (08:21)
[2018-02-09] MEDS: Docusate CAP* 100 MG PO SCH (08:21)
[2018-02-09] MEDS: FLUoxetine CAP* 20 MG PO SCH (08:21)
[2018-02-09] MEDS ORDERED: Polyethylene Glycol 3350* 17 GM PACKET PO PRN (10:52)
[2018-02-09] MEDS ORDERED: Magnesium Hydroxide LIQ* 30 ML UDC PO PRN (10:52)
[2018-02-09 12:27] VITALS: BP 102/72
--- NOTE | 2018-02-09 20:01 | DS ---
CC: Dr. Llanos * DISCHARGE SUMMARY: DATE OF ADMISSION: 02/04/18 DATE OF DISCHARGE: 02/09/18 PRINCIPAL DISCHARGE DIAGNOSES: 1. Cavitary left upper lobe mass. 2. Community-acquired pneumonia. 3. Sepsis. SECONDARY DISCHARGE DIAGNOSES: 1. History of head and neck squamous cell carcinoma. 2. History of cerebrovascular accident with residual right-sided weakness. 3. History of coronary artery disease. DISCHARGE MEDICATIONS: 1. MiraLAX 17 g daily p.r.n. constipation. 2. Senna 2 tabs q.h.s. p.r.n. constipation. 3. Docusate 100 mg b.i.d. p.r.n. constipation. 4. Tylenol 650 q.4 p.r.n. pain. 5. Niacin 1000 mg q.h.s. 6. Zinc 50 mg daily. 7. Vitamin B complex 150 mg daily. 8. [place]-3/fish oil 1 cap daily. 9. Vitamin D3 of 400 units daily. 10. Fluoxetine 20 mg daily. 11. Plavix 75 mg daily. 12. Flexeril 10 mg t.i.d. p.r.n. pain or spasms. 13. Magnesium oxide 400 mg b.i.d. 14. Albuterol 2.5 mg inhaled b.i.d. p.r.n. wheezing. 15. Melatonin 1 mg q.h.s. 16. Zetia/simvastatin 1 q.h.s. 17. Cefdinir 300 mg b.i.d. for 2 more days. 18. Doxycycline 100 mg b.i.d. for 2 more days. HOSPITAL COURSE BY PROBLEM: 1. Left upper lobe cavitary mass. Mr. Nieves has a history of a recurrent pneumonia over the past several months and he has been following with Dr. Llanos for this. A PET scan that was performed in November showed several masses in the left lung and had been following with Dr. Llanos for this and was thought to be related to recurrent pneumonia and inflammatory changes. On this admission, he came in after an episode of choking on food and pills and was found to have a left upper lobe infiltrate and a CT chest was performed on the day of admission. The CT chest showed a 3.7 x 6.8 x 9.8 cm cavitary lesion involving the apical posterior segment of the left upper lobe. He was evaluated by Dr. Llanos who suggested a differential that includes malignancy versus abscess and she ordered an ultrasound- guided lung biopsy, which was performed on 02/08/18. On 02/09/18, the pathology from the biopsy is pending, but the Gram stain shows no organisms and no neutrophils and no acid-fast bacilli. A fungal stain is pending at the time of discharge. I have discussed the case with Dr. Llanos and she agrees to follow up on the remaining studies from the biopsy when she sees him this week in the office. 2. Community-acquired pneumonia. Mr. Nieves has had recurrent pneumonia and when he presented to the hospital, he met sepsis criteria with a clear pulmonary source, so he was treated with Zosyn. His Legionella antigen and Strep pneumo antigens are negative. A sputum culture was unable to be obtained. His sepsis resolved on Zosyn. At the time of discharge, I am sending him home on 2 more days of p.o. antibiotics and I have chosen cefdinir and doxycycline based on his allergies to MACROLIDES and FLUOROQUINOLONES. 3. History of head and neck cancer. This raises the concern for malignancy in the left upper lobe, specifically for squamous cell carcinoma. Again, the pathology will be followed by Dr. Llanos this week. 4. History of cerebrovascular accident with right-sided hemiparesis. This was at baseline. 5. Coronary artery disease. He was continued on Plavix and statin. Of note, his Plavix was held for 3 days for the biopsy and it is being resumed the day following discharge. Mr. Nieves is being discharged on 02/09/18 in the care of his daughter. They are instructed to come back to the emergency department should he experience any worsening shortness of breath, hemoptysis, cough, or any other new symptoms. They understand that they are to follow up with Dr. Llanos within 1 week and I have discussed this plan with both them and Dr. Llanos. TIME SPENT: 45 minutes were spent on the discharge of Mr. Nieves. [id number]/[facility] #: [id number] [facility] CENTERConstance
== END 2018-02-09 17:15 | disposition home or self-care (01) | DRG 871 ==
LOC: ED 17:08 → MED 19:28
PROVIDERS: ADMIT Internal Medicine; ATTEND Internal Medicine
PROC: 0BDL8ZX Extraction of Left Lung, Via Natural or Artificial Opening Endoscopic, Diagnostic (ICD-10-PCS; principal; 2018-02-08)
DX: A41.9 Sepsis, unspecified organism (principal); J18.9 Pneumonia, unspecified organism; I69.351 Hemiplegia and hemiparesis following cerebral infarction affecting right dominant side; J44.9 Chronic obstructive pulmonary disease, unspecified; I11.9 Hypertensive heart disease without heart failure; R91.8 Other nonspecific abnormal finding of lung field; I25.10 Atherosclerotic heart disease of native coronary artery without angina pectoris; E78.5 Hyperlipidemia, unspecified; Z87.891 Personal history of nicotine dependence; Z95.5 Presence of coronary angioplasty implant and graft; Z85.89 Personal history of malignant neoplasm of other organs and systems; Z79.1 Long term (current) use of non-steroidal anti-inflammatories (NSAID); Z79.51 Long term (current) use of inhaled steroids; Z79.899 Other long term (current) drug therapy; Z88.1 Allergy status to other antibiotic agents; Z88.8 Allergy status to other drugs, medicaments and biological substances
CPT/HCPCS: 10022; 36415; 71046; 71250; 80048; 80053; 80061; 81003; 81015; 82607; 82728; 82746; 83540; 83550; 83605; 83880; 84443; 84484; 85025; 85610; 85730; 87070; 87086; 87102; 87116; 87205; 87206; 87641; 87899; 88172; 88173; 88177; 88305; 93005; 93306; 94640; 99284; A9270-GY; G8978-GP-CL; G8979-GP-CI; J1100; J2310; J2543; J3010; J3370

== ENCOUNTER 2018-05-21 21:01 | Emergency (ER) | payer MEDICARE, BC | END 2018-05-21 21:26 | disposition left against medical advice (07) | LOC: UCEAST 21:01 | DX: M79.606 Pain in leg, unspecified (principal); Z53.21 Procedure and treatment not carried out due to patient leaving prior to being seen by health care provider ==

== ENCOUNTER → 2018-05-21 21:46 | Emergency (ER) | payer MEDICARE, BC ==
[2018-05-21 21:53] VITALS: BP 98/65
== END | disposition left against medical advice (07) ==
LOC: ED 21:46
DX: Z53.21 Procedure and treatment not carried out due to patient leaving prior to being seen by health care provider (principal)

== ENCOUNTER 2018-05-22 13:23 | Emergency (ER) | payer MEDICARE, BC ==
--- OUTSIDE RECORDS SUMMARY | 2018-05-22 13:35 | XMS REPORT | Continuity of Care Document ---
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 Calcium 2019 s at night DO Juice FACKaushal Midodrine HCL 03/23/ Active Tablets 2.5mg 90tab 1 by mouth I95.89 Shamir Merida 2019 s three Bose, times a DO FACC day Albuterol Sulfate 10/16/ Active Nebulizer (2.5mg/3M 150ml 1 unit Bibi 2018 L) 0.083% nebl every Romi, 6 hours as MD needed Plavix / Active Tablets 75mg 30tab 1 by mouth Unknown 0000 s every morning Prozac / Active Capsules 20mg 90cap 1 by mouth Unknown 0000 s every morning Super B Complex / Active Tablets 1 tab by Unknown 0000 mouth every morning Vitamin D-3 / Active 400Iu 1 tab by Unknown 0000 mouth every morning [place]-3 / Active Capsules 1gm 1 tab by Unknown 0000 mouth every morning Zinc / Active 50mg 1 tab by Unknown 0000 mouth every morning Niacin / Active Tablets 500mg 2 tabs by Unknown 0000 mouth at bedtime Tablets / Active Tablets ER 650mg 1 tab Unknown 0000 every 6 hours as needed Stool Softener / Active Capsules 100mg 1 by mouth Unknown 0000 2 times daily as needed Senokot / Active 2 tab by Unknown 0000 mouth at bedtime as needed Miralax / Active Packet 3350NF 17 grams Unknown 0000 with 8oz of water once a day as needed Nystatin-Triamcin / Active twice a Unknown olone 0000 day as needed Magnesium Oxide / Active Tablets 400(241.3 Take One Unknown 0000 Mg) mg Tablet By Mouth Twice A Day Cyclobenzaprine / Active Tablets 10mg Take One Unknown HCL 0000 Tablet By Mouth Three Times A Day as Needed For Muscle Spasm Melatonin / Active Tablets 1mg 1 tablet Unknown 0000 po daily Doxycycline 01/05/ Hx Capsules 100mg 14cap one tablet Bibi Hyclate 2017 - twice Romi, 02/16/ daily for MD 2019 7 days. Vytorin/Atorvasta / Hx 40/10 mg 1 tab by I63.9 Unknown tin&Zetia 0000 - mouth at 03/23/ bedtime 2019 Alberto"S Leg / Hx 1 tab by Unknown Cramps PM 0000 - mouth at 01/08/ bedtime as 2019 needed Nicotine 00/00/ Hx Patches 7mg/24HR 1 patch Unknown 0000 - 24HR daily as 2019 Meclizine HCL / Hx Tablets 12.5mg 1 tablet Unknown 0000 - po three 05/06/ times 2019 daily as needed for dizziness Immunizations Description No Information Available Vital Signs Date Vital Result Comment 05/07/2018 10:49am Height 72 inches 6'0" Heart Rate 65 /min BP Systolic Sitting 122 mmHg Lue regular cuff BP Diastolic Sitting 78 mmHg Lue regular cuff Respiratory Rate 16 /min O2 % BldC Oximetry 95 % 03/23/2018 10:14am Height 72 inches 6'0" Heart Rate 68 /min BP Systolic 92 mmHg Lue reg cuff (2nd time ) BP Diastolic 70 mmHg Lue reg cuff (2nd time ) BP Systolic Sitting 80 mmHg Lue reg cuff BP Diastolic Sitting 70 mmHg Lue reg cuff Respiratory Rate 16 /min Ejection Fraction 55-60% 02/05/18 echo 02/24/2018 8:32am Height 72 inches 6'0" Weight 152.38 lb Heart Rate 80 /min BP Systolic Sitting 108 mmHg BP Diastolic Sitting 70 mmHg BMI (Body Mass Index) 20.7 kg/m2 02/17/2018 7:18am Height 72 inches 6'0" Weight 154.00 lb Heart Rate 68 /min BP Systolic Sitting 118 mmHg Lue regular cuff BP Diastolic Sitting 78 mmHg Lue regular cuff Respiratory Rate 12 /min O2 % BldC Oximetry 98 % BMI (Body Mass Index) 20.9 kg/m2 01/07/2018 2:29pm Height 72 inches 6'0" Weight [...] Date Facility Test Result H/L Range Note Lipid Profile 05/03/2018 [facility] Triglycerides 79 mg/dL 1 (Trig/Chol/HDL) [address] [place] [address] [phone] Cholesterol 135 mg/dL 2 HDL Cholesterol 46.7 mg/dL 3 LDL Cholesterol 73 mg/dL 4 CBC Auto Diff 02/24/2018 [facility] White Blood 8.7 10^3/uL N 3.5-10.[address] [place] [address] [phone] Red Blood Count 3.66 10^6/uL Low 4.00-5.40 Hemoglobin 12.3 g/dL Low 14.0-18.0 Hematocrit 36 % Low 42-52 Mean Corpuscular Volume 100 fL High 80-94 Mean Corpuscular Hemoglobin 34 pg High 27-31 Mean Corpuscular HGB Conc 34 g/dL N 31-36 Red Cell Distribution Width 16 % High 10.5-15 Platelet Count 484 10^3/uL High 150-450 Mean Platelet Volume 7.0 fL Low 7.4-10.4 Abs Neutrophils 5.9 10^3/uL N 1.5-7.7 Abs Lymphocytes 1.5 10^3/uL N 1.0-4.8 Abs Monocytes 0.6 10^3/uL N 0-0.8 Abs Eosinophils 0.6 10^3/uL N 0-0.6 Abs Basophils 0.1 10^3/uL N 0-0.2 Abs Nucleated RBC 0 10^3/uL Granulocyte % 67.9 % Lymphocyte % 17.3 % Monocyte % 7.1 % Eosinophil % 6.5 % Basophil % 1.2 % Nucleated Red Blood Cells % 0.1 Lipid Profile 02/24/2018 [facility] Triglycerides 45 mg/dL 5 (Trig/Chol/HDL) [address] [place] [address] [phone] Cholesterol 137 mg/dL 6 HDL Cholesterol 51.8 mg/dL 7 LDL Cholesterol 76 mg/dL 8 Comp Metabolic Panel 02/24/2018 [facility] Sodium 135 mmol/L N 135-[address] [place] [address] [phone] Potassium 5.2 mmol/L High 3.5-5.0 Chloride 102 mmol/L N 101-111 Co2 Carbon Dioxide 29 mmol/L N 22-32 Anion Gap 4 mmol/L N 2-11 Glucose 109 mg/dL High 70-100 Blood Urea Nitrogen 18 mg/dL N 6-24 Creatinine 0.97 mg/dL N 0.67-1.17 BUN/Creatinine Ratio 18.6 N 8-20 Calcium 9.7 mg/dL N 8.6-10.3 Total Protein 6.8 g/dL N 6.4-8.9 Albumin 3.5 g/dL N 3.2-5.2 Globulin 3.3 g/dL N 2-4 Albumin/Globulin Ratio 1.1 N 1-3 Total Bilirubin 0.50 mg/dL N 0.2-1.0 Alkaline Phosphatase 72 U/L N 34-104 Alt 41 U/L N 7-52 Ast 35 U/L N 13-39 Egfr Non- 76.3 >60 Egfr 92.3 >60 9 Type & Screen 12/16/2017 [facility] Patient Blood Type O Positive [address] [place] [address] [phone] Antibody Screen NEGATIVE Basic Metabolic 12/16/2017 [facility] Sodium 133 mmol/L Low 135-[address] [place] [address] [phone] Potassium 4.1 mmol/L N 3.5-5.0 Chloride 103 mmol/L N 101-111 Co2 Carbon Dioxide 26 mmol/L N 22-32 Anion Gap 4 mmol/L N 2-11 Glucose 95 mg/dL N 70-100 Blood Urea Nitrogen 20 mg/dL N 6-24 Creatinine 0.95 mg/dL N 0.67-1.17 BUN/Creatinine Ratio 21.1 High 8-20 Calcium 9.3 mg/dL N 8.6-10.3 Egfr Non- 78.2 >60 Egfr 94.6 >60 11 CBC No Diff 12/16/2017 [facility] White Blood 10.7 10^3/uL N 3.5-10.[address] [place] [address] [phone] Red Blood Count 3.35 10^6/uL Low 4.00-5.40 Hemoglobin 11.6 g/dL Low 14.0-18.0 Hematocrit 34 % Low 42-52 Mean Corpuscular Volume 101 fL High 80-94 Mean Corpuscular Hemoglobin 35 pg High 27-31 Mean Corpuscular HGB Conc 34 g/dL N 31-36 Red Cell Distribution Width 15 % N 10.5-15 Platelet Count 410 10^3/uL N 150-450 Mean Platelet Volume 7.1 fL Low 7.4-10.4 Laboratory test 12/16/2017 [facility] Cytology Non-Explosives Truck Driver SEE RESULT [address] [place] [address] [phone] Leukemia/Lympho 12/16/2017 [facility] Path Interpret (SEE NOTE) 13 ma Flow [address] 9-15 [place] [address] [phone] Laboratory test 12/16/2017 [facility] Mycobacterial See Comment [address] [place] [address] [phone] Laboratory test 12/16/2017 [facility] Fungal Cult Other SEE RESULT [address] [place] [address] [phone] Laboratory test 12/16/2017 [facility] Fungal Cult Other SEE RESULT [address] [place] [address] [phone] Laboratory test 12/16/2017 [facility] Fungal Cult Other SEE RESULT [address] [place] [address] [phone] Laboratory test 12/16/2017 [facility] Fungal Cult Other SEE RESULT [address] [place] [address] [phone] Acid Fast 12/16/2017 [facility] Acid Fast Culture SEE RESULT 19 Culture & Smear [address] Smear BELOW [place], [place] [address] [phone] Body Fluid C&S 12/16/2017 [facility] Body Fluid Cult SEE RESULT [address] Gram Stain BELOW [place], [place] [address] [phone] Laboratory test 11/24/2017 [facility] Point of Care 112 mg/dL High 70-1 [address] Glucose 00 [place] [address] [phone] 1 Desirable: <150 Borderline High: 150-199 High: 200-499 Very High: >500 2 Desirable: <200 Borderline High: 200-239 High: >239 3 Low: <40 Desirable: 40-60 High: >60 4 Desirable: <100 Near Optimal: 100-129 Borderline High: 130-159 High: 160-189 Very High: >189 5 Desirable: <150 Borderline High: 150-199 High: 200-499 Very High: >500 6 Desirable: <200 Borderline High: 200-239 High: >239 7 Low: <40 Desirable: 40-60 High: >60 8 Desirable: <100 Near Optimal: 100-129 Borderline High: 130-159 High: 160-189 Very High: >189 9 Because ethnic data is not always readily [...] 15-29 5 Kidney failure <15 (or dialysis) 10 OTHER DISORDERS OF LUNG 11 Because ethnic data is not always readily [...] 15-29 5 Kidney failure <15 (or dialysis) 12 SEE RESULT BELOW Name: ELKE THORNE V : [address]: Bibi Llanos MD Acct: [id number] Unit: [id number] AGE: 72 Location: OR Re12/16/17 SEX: M Status: REG SDC SPEC: [id number] KETAN: 12/16/17-1430 [facility] DR: Bibi Llanos MD REQ: [id number] RECD: 12/16/17 STATUS: SOUT _ ORDERED: FNA-IMG [...] CONTINUED ON NEXT PAGE DEPARTMENT OF PATHOLOGY, [address] [place] [address] Kj Carrasquillo M.D. Director MELVIN # [id number] RUN DATE: 12/22/17 [facility] LAB LIVE PAGE 2 Patient: ELKE THORNE Lety [id number] (Continued) CLINICAL HISTORY (Continued) CLINICAL HISTORY Head [...] colored fluid. (lavage). * Specimen sent to [facility] for Flow cytometry [place], [place] on 12/17/17 by [id number] at 1145. 1) SPECIAL STUDIES Flow cytometry has been performed at [facility], [place], [place]. The testing reveals: FINAL DIAGNOSIS: Specimen Source: L4 lymph node Flow cytometry immunophenotypic analysis: No immunophenotypic abnormality identified. Interpretative data: Lymphocytes: 34% of WBCs B-cells: 21% of lymphocytes with no evidence of light chain restriction or other immunophenotypic abnormality. T-cells/NK cells: No aberrant population detected. CONTINUED ON NEXT PAGE DEPARTMENT OF PATHOLOGY, [address] [place] [address] Kj Carrasquillo M.D. Director [facility] # [id number] RUN DATE: 12/22/17 [facility] LAB LIVE PAGE 3 Patient: ELKE THORNE V [id number] (Continued) SPECIAL STUDIES (Continued) SPECIAL STUDIES (Continued) Markers tested: CD3, CD5, CD7, CD10, CD19, CD20, CD23, CD45, kappa surface light chains, lambda surface light chains, 7-AAD. Quality Assessment: Acceptable Viability: Acceptable Viable lymphocytes (7-AAD): 100% Specimen received within validated guidelines. A Geiger-Giemsa stained slide prepared from the flow cytometry specimen was examined for quality purposes. Electronically signed by: Kj Carrasquillo MD 12/21/17 9182 Technical component performed by: [facility] - [address] [address] Assistant Spa Manager: Max Mata II, MD, PhD. Signed by and Reported on: Lorrie Bal MD 12/22/17 1252 END OF REPORT DEPARTMENT OF PATHOLOGY, [address] [place] [address] Kj Carrasquillo M.D. Director [facility] # [id number] 13 FINAL DIAGNOSIS: Specimen Source: L4 lymph node [...] Electronically signed by: Kj Carrasquillo MD 12/21/17 9392 Technical component performed by: [place] [address] Assistant Spa Manager: Max Mata II, MD, PhD. 14 SOURCE: BRONCHIAL WASHING MYCOBACTERIAL CULTURE FINAL No growth after 42 days of incubation. Test Performed by: [place] [id number] 15 SEE RESULT BELOW Name: ELKE THORNE V : [address]: Bibi Llanos MD Acct: [id number] Unit: [id number] AGE: 72 Location: OR Re12/16/17 SEX: M Status: REG SDC SPEC: [id number] KETAN: 12/16/17-1639 [facility] DR: Bibi Llanos MD REQ: [id number] RECD: 12/16/17 STATUS: TERRA ROYAL DR: Mari Tolentino DRYLAND FARMER _ SOURCE: RESP SPDESC:BRONCH WAS ORDERED: Fungal - Other Procedure Result Reported Site Fungal Cult - Other Sources Final 01/18/18- 1259 ML Fungal Culture No Growth of Mycotic Organisms 4 weeks * - Main Lab . END OF REPORT DEPARTMENT OF PATHOLOGY, [address] [place] [address] Kj Carrasquillo M.D. Director [facility] # [id number] 16 SEE RESULT BELOW Name: ELKE THORNE V : [address]: Bibi Llanos MD Acct: [id number] Unit: [id number] AGE: 72 Location: OR Re12/16/17 SEX: M Status: REG SDC SPEC: [id number] KETAN: 12/16/17-1639 [facility] DR: Bibi Llanos MD REQ: [id number] RECD: 12/16/17 STATUS: CHRISTI ROYAL DR: Mari Tolentino DRYLAND FARMER _ SOURCE: RESP SPDESC:BRONCH WAS ORDERED: Fungal - Other Procedure Result Reported Site Fungal Cult - Other Sources Preliminary 01/11/18- 1332 ML Fungal Culture No Growth of Mycotic Organisms 3 weeks * ML - Main Lab . END OF REPORT DEPARTMENT OF PATHOLOGY, [address] [place] [address] Kj Carrasquillo M.D. Director [facility] # [id number] 17 SEE RESULT BELOW Name: ELKE THORNE V : [address]: Bibi Llanos MD Acct: [id number] Unit: [id number] AGE: 72 Location: OR Re12/16/17 SEX: M Status: REG SDC SPEC: [id number] KETAN: 12/16/17-1639 [facility] DR: Bibi Llanos MD REQ: [id number] RECD: 12/16/17 STATUS: RES OTHR DR: Mari Tolentino DRYLAND FARMER _ SOURCE: RESP SPDESC:BRONCH WAS ORDERED: Fungal - Other Procedure Result Reported Site Fungal Cult - Other Sources Preliminary 01/04/18- 5360 ML Fungal Culture No Growth of Mycotic Organisms 2 weeks * ML - Main Lab . END OF REPORT DEPARTMENT OF PATHOLOGY, [address] [place] [address] Kj Carrasquillo M.D. Director [facility] # [id number] 18 SEE RESULT BELOW Name: THORNEELKE V : [address]: Bibi Llanos MD Acct: [id number] Unit: [id number] AGE: 72 Location: OR Re12/16/17 SEX: M Status: REG SDC SPEC: [id number] KETAN: 12/16/17-1640 [facility] DR: Bibi Llanos MD REQ: [id number] RECD: 12/16/17 STATUS: CHRISTI ROYAL DR: Mari Tolentino DRYLAND FARMER _ SOURCE: RESP SPDESC:BRONCH WAS ORDERED: Fungal - Other Procedure Result Reported Site Fungal Cult - Other Sources Preliminary 12/28/17- 1230 ML No Growth Week 1 * ML - Main Lab . END OF REPORT DEPARTMENT OF PATHOLOGY, [address] [place] [address] Kj Carrasquillo M.D. Director [facility] # [id number] 19 SEE RESULT BELOW Name: ELKE THORNE V : [address]: Bibi Llanos MD Acct: [id number] Unit: [id number] AGE: 72 Location: OR Re12/16/17 SEX: M Status: REG YENYC SPEC: [id number] KETAN: 12/16/17-1640 [facility] DR: Bibi Llanos MD REQ: [id number] RECD: 12/16/17 STATUS: TERRA ROYAL DR: Mari Tolentino DRYLAND FARMER _ SOURCE: BODY FLUID SPDESC:BRONCH WAS ORDERED: AFB Cult Smear Procedure Result Reported Site Acid Fast Stain - Direct Final 12/17/17- 08 ML AFB Smear Result No Acid Fast Bacillus Present (Negative) Preparation By Direct Smear Due to limited sensitivity of the smear, results should be used as an adjunct in evaluating the patient's status. This specimen has been sent to referral laboratory for mycobacterial culture. * ML - Main Lab . END OF REPORT DEPARTMENT OF PATHOLOGY, [address] [place] [address] Kj Carrasquillo M.D. Director [facility]EL[facility] # [id number] 20 SEE RESULT BELOW Name: ELKE THORNE V : [address]: Bibi Llanos MD Acct: [id number] Unit: [id number] AGE: 72 Location: OR Re12/16/17 SEX: M Status: REG SDC SPEC: [id number] KETAN: 12/16/17-1639 [facility] DR: Bibi Llanos MD REQ: [id number] RECD: 12/16/17 STATUS: TERRA ROYAL DR: Mari Tolentino DRYLAND FARMER _ SOURCE: BODY FLUID SPDESC:BRONCH WAS ORDERED: [...] CONTINUED ON NEXT PAGE DEPARTMENT OF PATHOLOGY, [address] [place] [address] Kj Carrasquillo M.D. Director [facility] # [id number] Patient: ELKE THORNE V [id number] (Continued) Specimen: [id number] Collected: 12/16/17-1639 Received: 12/16/17 (Continued) Procedure Result Reported Site Body Fluid Culture Final (continued) 12/20/17- 831 2. STAPHYLOCOCCUS AUREUS M.I.C. RX --------- ------ [...] These antibiotics are not available in the [facility] Formulary Contact the Microbiology Department for any additional antibiotic reporting. * ML - Main Lab . END OF REPORT DEPARTMENT OF PATHOLOGY, [address] [place] [address] Kj Carrasquillo M.D. Director [facility] # [id number] 21 Bait Digger: [id number] Procedures Date Code Description Status 03/23/2018 31735 EKG Tracing & Interpretation Completed 02/05/2018 32347 ECHO Transthorasic Realtime 2D W Doppler & Color Flow Hosp Completed 12/16/2017 15591 Endobronchial Ultrasound=>3 Completed Encounters Type Date Location Provider Dx Diagnosis Office Visit 03/23/2018 [facility] Shamir Bose, Z86.73 Prsnl hx of TIA 10:40a Of Flat Machine Cutter DO FACC (TIA), and cereb infrc w/o resid deficits I25.10 Athscl heart disease of [place] coronary artery w/o ang pctrs I95.89 Other hypotension F17.201 Nicotine dependence, unspecified, in remission E78.5 Hyperlipidemia, unspecified Office Visit 02/24/2018 [facility] Rayshawn I69.354 Hemiplga 8:30a Clinic MD [place] 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 Office Visit 02/17/2018 [facility] Bibi J18.1 Lobar pneumonia, 7:15a Services Of Aram Llanos MD unspecified organism J44.9 Chronic obstructive pulmonary disease, unspecified Office [facility] 02[facility]09[facility]2018 [facility],azeem Lawler, DO obstructive Hospitalists pulmon disease w acute lower resp infct J18.1 Lobar pneumonia, unspecified organism 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 R91.8 Other nonspecific abnormal finding of lung field Z87.891 Personal history of nicotine dependence Office Visit 02/08/2018 8:37a [facility] J[facility].0 Chronic Assoc,azeem Lawler DO obstructive Hospitalists pulmon disease w acute lower resp infct J18.1 Lobar pneumonia, unspecified organism 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 R91.8 Other nonspecific abnormal finding of lung field [facility] 8:37a Assoc,azeem Ho MD obstructive Hospitalists pulmon disease w acute lower resp infct J18.1 Lobar pneumonia, unspecified organism R91.8 Other nonspecific abnormal finding of lung field Z87.891 Personal history of nicotine dependence Office Visit 02/06/2018 8:36a [facility] J44.0 Chronic Assoc,azeem Lamb NP obstructive Hospitalists pulmon disease w acute lower resp infct J18.1 Lobar pneumonia, unspecified organism Z87.891 Personal history of nicotine dependence R91.8 Other nonspecific abnormal finding of lung field Office Visit 02/06/2018 11:15a Pul[facility]ology And Bibi R91.8 Other nonspecific Sleep Services Of MD Romi abnormal finding Flat Machine Cutter of lung [facility] J44.0 Chronic obstructive pulmon disease w acute lower resp infct J18.1 Lobar pneumonia, unspecified organism 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 Z87.891 Personal history of nicotine dependence Office Visit 02/05/2018 8:36a [facility] J44.0 Chronic Assoc,pc Zainab, AYDE obstructive Hospitalists pulmon disease w acute lower resp infct Z87.891 Personal history of nicotine dependence J18.1 Lobar pneumonia, unspecified organism Office Visit 02/05/2018 7:25a [facility] And Bibi R91.8 Other nonspecific Sleep Services Of MD Romi abnormal finding Flat Machine Cutter of lung [facility] J44.0 Chronic obstructive pulmon disease w acute lower resp infct J18.1 Lobar pneumonia, unspecified organism 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 Z87.891 Personal history of nicotine dependence Office Visit 02/04/2018 8:35a [facility] J44.0 Chronic Assoc,pc obstructive pulmon Hospitalists disease w acute lower resp infct J18.9 Pneumonia, unspecified organism Z87.891 Personal history of nicotine dependence 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 Office Visit 01/07/2018 2:45p [facility] And Bibi J98.4 Other disorders Sleep Services Of MD Romi of lung [facility] J44.9 Chronic obstructive pulmonary disease, unspecified Office Visit 11/26/2017 12:00p [facility] Bibi J98.4 Other disorders Sleep Services Of MD Romi of lung [facility] J44.9 Chronic obstructive pulmonary disease, unspecified Z87.891 Personal history of nicotine dependence Office Visit 10/16/2017 2:00p Pul[facility]ology And Bibi J98.4 Other disorders Sleep Services Of MD Romi of [facility] J44.9 Chronic obstructive pulmonary disease, unspecified Z87.891 Personal history of nicotine dependence Plan of Treatment Future Appointment(s):11/08/2018 1:45 pm - Bibi Llanos MD at [facility]05/25/2018 9:15 am - Rayshawn Meek MD at [facility] [id number]/07/2018 - Bibi Llanos MDJ98.4 Other disorders of lungFollow up:6 months , CT rvevvX17.9 Chronic obstructive pulmonary disease, unspecified
--- OUTSIDE RECORDS SUMMARY | 2018-05-22 13:35 | XMS REPORT | Continuity of Care Document ---
:1945 External Reference #:[id number] Author Name Sheri Herndon Care Team Providers Name Role Phone Mari Tolentino NP Primary Care Physician Unavailable Payers Date Identification Numbers Payment Provider Subscriber Policy Number: [id number] Medicare Elke Thorne PayID: [id number] [address] [place] [address] Policy Number: [id number] Facets Elke Thorne PayID: [id number] [address] [address] [place] [address] Advance Directives Description No Information Available Problems [...] Former Cigarette Smoker Unknown Smoking Status Reviewed: 05/10/18 Former Cigarette Smoker ETOH Use Rarely consumes [...] Form Strength Qnty SIG Indications Ordering Provider Ezetimibe 05/10/ Active Tablets 10mg 90tab take one E78.5 Shamir S. 2019 s tablet Bose, daily, use DO FAC generic Atorvastatin 03/23/ Active Tablets 80mg 90tab 1 by mouth I63.9 Shamir Merida Calcium 2019 s at night Bose, DO FAC Midodrine HCL 03/23/ Active Tablets 2.5mg 270ta 1 by mouth I95.89 Shamir Merida 2019 bs three Bose, times a DO [facility] day Albuterol Sulfate 10/16/ Active Nebulizer (2.5mg/3M [...] tab by Unknown 0000 mouth every morning [place]-3 / Active Capsules 1gm 1 tab by [...] 14cap one tablet Bibi Hyclate 2017 - s twice Romi, 02/16/ daily for MD 2018 7 days. Vytorin/Atorvasta / Hx 40/10 mg 1 tab by I63.9 Unknown tin&Zetia 0000 - mouth at bedtime 2019 Alberto"S Leg / Hx 1 tab by Unknown Cramps PM 0000 - mouth at 02/16/ bedtime as 2019 needed Nicotine / Hx Patches 7mg/24HR 1 patch Unknown 0000 - 24HR daily as needed 2018 Meclizine HCL / Hx Tablets 12.5mg 1 tablet Unknown 0000 - po three 05/06/ times 2019 daily as needed for dizziness Immunizations Description No Information Available Vital Signs Date Vital Result Comment 05/10/2018 1:16pm Height 72 inches 6'0" Weight 168.50 lb w/ shoes Heart Rate 64 /min reg BP Systolic Sitting 122 mmHg Lue reg cuff BP Diastolic Sitting 80 mmHg Lue reg cuff Respiratory Rate 16 /min BMI (Body Mass Index) 22.9 kg/m2 Ejection Fraction 55-60% 02/05/18 cmc echo 05/07/2018 10:49am Height 72 inches 6'0" Heart [...] Result H/L Range Note Lipid Profile 05/03/2018 Triglycerides 79 mg/dL 1 (Trig/Chol/HDL) [address] [place] [address] [phone] Cholesterol 135 mg/dL 2 HDL Cholesterol 46.7 mg/dL 3 LDL Cholesterol 73 mg/dL 4 CBC Auto Diff 02/24/2018 White Blood 8.7 10^3/uL N 3.5-10.[address] [place] [address] [phone] Red Blood Count 3.66 10^6/uL Low 4.00-5.40 [...] Blood Cells % 0.1 Lipid Profile 02/24/2018 Triglycerides 45 mg/dL 5 (Trig/Chol/HDL) [address] [place] [address] [phone] Cholesterol 137 mg/dL 6 HDL Cholesterol 51.8 mg/dL 7 LDL Cholesterol 76 mg/dL 8 Comp Metabolic Panel 02/24/2018 Sodium 135 mmol/L N 135-[address] [place] [address] [phone] Potassium 5.2 mmol/L High 3.5-5.0 Chloride 102 [...] 92.3 >60 9 Type & Screen 12/16/2017 Patient Blood Type O Positive [address] [place] [address] [phone] Antibody Screen NEGATIVE Basic Metabolic 12/16/2017 Sodium 133 mmol/L Low 135-[address] [place] [address] [phone] Potassium 4.1 mmol/L N 3.5-5.0 Chloride 103 mmol/L N 101-111 Co2 Carbon Dioxide 26 mmol/L N 22-32 Anion Gap 4 mmol/L N 2-11 Glucose 95 mg/dL N 70-100 Blood Urea Nitrogen 20 mg/dL N 6-24 Creatinine 0.95 mg/dL N 0.67-1.17 BUN/Creatinine Ratio 21.1 High 8-20 Calcium 9.3 mg/dL N 8.6-10.3 Egfr Non- 78.2 >60 Egfr 94.6 >60 11 CBC No Diff 12/16/2017 White Blood 10.7 10^3/uL N 3.5-10.[address] [place] [address] [phone] Red Blood Count 3.35 10^6/uL Low 4.00-5.40 Hemoglobin 11.6 g/dL Low 14.0-18.0 Hematocrit 34 % Low 42-52 Mean Corpuscular Volume 101 fL High 80-94 Mean Corpuscular Hemoglobin 35 pg High 27-31 Mean Corpuscular HGB Conc 34 g/dL N 31-36 Red Cell Distribution Width 15 % N 10.5-15 Platelet Count 410 10^3/uL N 150-450 Mean Platelet Volume 7.1 fL Low 7.4-10.4 Laboratory test 12/16/2017 Cytology Non-County Health Officer SEE RESULT [address] BELOW [place], [place] [id number] [phone] Leukemia/Lympho 12/16/2017 Path Interpret (SEE NOTE) 13 ma Flow [address] 9-15 Marker [place], [place] [address] [phone] Laboratory test 12/16/2017 Mycobacterial See Comment [address] Culture [place], [place] [address] [phone] Laboratory test 12/16/2017 Fungal Cult Other SEE RESULT [address] Sources BELOW [place], [place] [address] [phone] Laboratory test 12/16/2017 Fungal Cult Other SEE RESULT [address] Sources BELOW [place], [place] [address] [phone] Laboratory test 12/16/2017 Fungal Cult Other SEE RESULT [address] Sources BELOW [place], [place] [address] [phone] Laboratory test 12/16/2017 Fungal Cult Other SEE RESULT [address] Sources BELOW [place], [place] [address] [phone] Acid Fast 12/16/2017 Acid Fast Culture SEE RESULT 19 Culture & Smear [address] Smear BELOW [place], [place] [address] [phone] Body Fluid C&S 12/16/2017 Body Fluid Cult SEE RESULT [address] [place] [address] [phone] Laboratory test 11/24/2017 Point of Care 112 mg/dL High 70-1 [address] Glucose 00 [place] [address] [phone] 1 Desirable: <150 Borderline High: 150-199 High: [...] [address]: Bibi Llanos MD Acct: [id number] Unit: [id number] AGE: 72 Location: OR Re12/16/17 SEX: M Status: REG [facility] [place] SPEC: [id number] KETAN: 12/16/[address] [facility] [address]: Bibi Llanos MD REQ: [id number] RECD: 12/16/17 STATUS: SOUT _ ORDERED: FNA-IMG [...] CONTINUED ON NEXT PAGE DEPARTMENT OF PATHOLOGY, [address] [place] [address] Kj Carrasquillo M.D. Director [place] # [id number] RUN DATE: 12/22/17 LAB LIVE PAGE 2 Patient: ELKE THORNE Lety [id number] (Continued) CLINICAL HISTORY (Continued) CLINICAL HISTORY Head [...] colored fluid. (lavage). * Specimen sent to [facility] for Flow cytometry [place], [place] on 12/17/17 by [id number] at 1145. 1) SPECIAL STUDIES Flow cytometry has been performed at [facility], [place], [place]. The testing reveals: FINAL DIAGNOSIS: Specimen Source: L4 lymph node Flow cytometry immunophenotypic analysis: No immunophenotypic abnormality identified. Interpretative data: Lymphocytes: 34% of WBCs B-cells: 21% of lymphocytes with no evidence of light chain restriction or other immunophenotypic abnormality. T-cells/NK cells: No aberrant population detected. CONTINUED ON NEXT PAGE DEPARTMENT OF PATHOLOGY, [address] [place] [address] Kj Carrasquillo M.D. Director [facility] # [id number] RUN DATE: 12/22/17 LAB LIVE PAGE 3 Patient: ELKE THORNE V [id number] (Continued) SPECIAL STUDIES (Continued) SPECIAL STUDIES (Continued) Markers tested: CD3, CD5, CD7, CD10, CD19, CD20, CD23, CD45, kappa surface light chains, lambda surface light chains, 7-AAD. Quality Assessment: Acceptable Viability: Acceptable Viable lymphocytes (7-AAD): 100% Specimen received within validated guidelines. A Geiger-Giemsa stained slide prepared from the flow cytometry specimen was examined for quality purposes. Electronically signed by: Kj Carrasquillo MD 12/21/17 011 Technical component performed by: [facility] [place] [address] Perinatal Social Worker: Max Mata II, MD, PhD. Signed by and Reported on: Lorrie Bal MD 12/22/17 1259 END OF REPORT DEPARTMENT OF PATHOLOGY, [address] [place] [address] Kj Carrasquillo M.D. Director [facility] # [id number] 13 FINAL DIAGNOSIS: Specimen Source: L4 lymph [...] Electronically signed by: Kj Carrasquillo MD 12/21/17 7188 Technical component performed by: [facility] - [place] [id number] Perinatal Social Worker: Max Mata II, MD, PhD. 14 SOURCE: BRONCHIAL WASHING MYCOBACTERIAL CULTURE FINAL No growth after 42 days of incubation. Test Performed by: [facility] - [address] [address] 15 SEE RESULT BELOW Name: ELKE THORNE Lety : [address]: Bibi Llanos MD Acct: [id number] Unit: [id number] AGE: 72 Location: OR Re12/16/17 SEX: M Status: REG SDC SPEC: [id number] KETAN: 12/16/17-[address] [facility] [address]: Bibi Llanos MD REQ: [id number] RECD: 12/16/17 STATUS: TERRA ROYAL DR: Mari Tolentino PRODUCT DEVELOPMENT COORDINATOR _ SOURCE: RESP SPDESC:BRONCH WAS ORDERED: Fungal - Other Procedure Result Reported Site Fungal Cult - Other Sources Final 01/18/18- 1259 ML Fungal Culture No Growth of Mycotic Organisms 4 weeks * ML - Main Lab . END OF REPORT DEPARTMENT OF PATHOLOGY, [address] [place] [address] Kj Carrasquillo M.D. Director [facility] # [id number] 16 SEE RESULT BELOW Name: EKLE THORNE V : [address]: Bibi Llanos MD Acct: [id number] Unit: [id number] AGE: 72 Location: OR Re12/16/17 SEX: M Status: REG AZC SPEC: [id number] KETAN: 12/16/17-[address] [facility] [address]: Bibi Llanos MD REQ: [id number] RECD: 12/16/17 STATUS: RES OTHR : Mari Tolentino PRODUCT DEVELOPMENT COORDINATOR _ SOURCE: RESP SPDES:BRONCH WAS ORDERED: Fungal - Other Procedure Result Reported Site Fungal Cult - Other Sources Preliminary 01/11/18- 1332 ML Fungal Culture No Growth of Mycotic Organisms 3 weeks * ML - Main Lab . END OF REPORT DEPARTMENT OF PATHOLOGY, [address] [place] [address] Kj Carrasquillo M.D. Director [facility] # [id number] 17 SEE RESULT BELOW Name: ELKE THORNE V : [address]: Bibi Llanos MD Acct: [id number] Unit: [id number] AGE: 72 Location: OR Re12/16/17 SEX: M Status: REG SDC SPEC: [id number] KETAN: 12/16/17-[address] [facility] [address]: Bibi Llanos MD REQ: [id number] RECD: 12/16/17 STATUS: CHRISTI ROYAL DR: Mari Tolentino PRODUCT DEVELOPMENT COORDINATOR _ SOURCE: RESP SPDESC:BRONCH WAS ORDERED: Fungal - Other Procedure Result Reported Site Fungal Cult - Other Sources Preliminary 01/04/18- 1249 ML Fungal Culture No Growth of Mycotic Organisms 2 weeks * - Main Lab . END OF REPORT DEPARTMENT OF PATHOLOGY, [address] [place] [address] Kj Carrasquillo M.D. Director [facility] # [id number] 18 SEE RESULT BELOW Name: ELKE THORNE V : [address]: Bibi Llanos MD Acct: [id number] Unit: [id number] AGE: 72 Location: OR Re12/16/17 SEX: M Status: REG SDC SPEC: [id number] KETAN: 12/16/17-[address] [facility] [address]: Bibi Llanos MD REQ: [id number] RECD: 12/16/17 STATUS: CHRISTI ROYAL DR: Mari Tolentino PRODUCT DEVELOPMENT COORDINATOR _ SOURCE: RESP SPDESC:BRONCH WAS ORDERED: Fungal - Other Procedure Result Reported Site Fungal Cult - Other Sources Preliminary 12/28/17- 1230 ML No Growth Week 1 * ML - Main Lab . END OF REPORT DEPARTMENT OF PATHOLOGY, [address] [place] [address] Kj Carrasquillo M.D. Director [place] # [id number] 19 SEE RESULT BELOW Name: ELKE THORNE V : [address]: Bibi Llanos MD Acct: [id number] Unit: [id number] AGE: 72 Location: OR Re12/16/17 SEX: M Status: REG SDC SPEC: [id number] KETAN: 12/16/[address] [facility] [address]: Bibi Llanos MD REQ: [id number] RECD: 12/16/17 STATUS: TERRA ROYAL DR: Mari Tolentino PRODUCT DEVELOPMENT COORDINATOR _ SOURCE: BODY FLUID SPDESC:BRONCH WAS ORDERED: AFB Cult Smear Procedure Result Reported Site Acid Fast Stain - Direct Final 12/17/17 08 ML AFB Smear Result No Acid Fast Bacillus Present (Negative) Preparation By Direct Smear Due to limited sensitivity of the smear, results should be used as an adjunct in evaluating the patient's status. This specimen has been sent to referral laboratory for mycobacterial culture. * ML - Main Lab . END OF REPORT DEPARTMENT OF PATHOLOGY, [address] [place] [address] Kj Carrasquillo M.D. Director [place] # [id number] 20 SEE RESULT BELOW Name: MATIELKE V : [address]: Bibi Llanos MD Acct: [id number] Unit: [id number] AGE: 72 Location: OR Re12/16/17 SEX: M Status: REG SDC SPEC: [id number] KETAN: 12/16/17-[address] [facility] [address]: Bibi Llanos MD REQ: [id number] RECD: 12/16/17 STATUS: TERRA ROYAL DR: Mari Tolentino PRODUCT DEVELOPMENT COORDINATOR _ SOURCE: BODY FLUID SPDESC:BRONCH WAS ORDERED: [...] CONTINUED ON NEXT PAGE DEPARTMENT OF PATHOLOGY, [address] [place] [address] Kj Carrasquillo M.D. Director [facility] # [id number] Patient: ELKE THORNE V [id number] (Continued) Specimen: [id number] Collected: 12/16/17 Received: 12/16/17 (Continued) Procedure Result Reported Site [...] These antibiotics are not available in the Formulary Contact the Microbiology Department for any additional antibiotic reporting. * - [facility] . END OF REPORT DEPARTMENT OF PATHOLOGY, [address] [place] [address] Kj Carrasquillo M.D. Director [facility] # [id number] 21 Filter Changing Technician: [id number] Procedures Date Code Description Status 03/23/2018 36994 EKG Tracing & Interpretation Completed 02/05/2018 15553 ECHO Transthorasic Realtime 2D W Doppler & Color Flow Hosp Completed 12/16/2017 44983 Endobronchial Ultrasound=>3 Completed Encounters Type Date Location Provider Dx Diagnosis Office Visit 05/07/2018 Pulmonology And Rolando Richardson98.4 Other disorders 10:45a Sleep Services Of of lung Aram J44.9 Chronic obstructive pulmonary disease, unspecified Office Visit 03/23/2018 10:40a [facility] Shamir Merida 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), and [facility] 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 I95.89 Other hypotension F17.201 Nicotine dependence, unspecified, in remission E78.5 Hyperlipidemia, unspecified Office Visit 02/24/2018 [facility] Rayshawn I69.354 Hemiplga 8:30a Clinic MD [place] 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 Office Visit 02/17/2018 Pulmonology And Sleep Bibi Marshall18.1 Lobar pneumonia, 7:15a Services Of Aram Llanos MD unspecified organism J44.9 Chronic obstructive pulmonary disease, unspecified Office Visit 02/09/2018 8:37a [facility] Andria Marshall44.0 Chronic Assoc,azeem Lawler DO obstructive Hospitalists pulmon disease w acute lower resp infct J18.1 Lobar pneumonia, unspecified organism 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 R91.8 Other nonspecific abnormal finding of lung field Z87.891 Personal history of nicotine dependence Office Visit 02/08/2018 8:37a [facility] Andria Marshall44.0 Chronic Assoc,azeem Lawler DO obstructive Hospitalists pulmon disease w acute lower resp infct J18.1 Lobar pneumonia, unspecified organism 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 Z87.891 Personal history of nicotine dependence Office Visit 02/04/2018 8:35a [facility] Katherine Munoz J44.0 Chronic Assoc,pc obstructive pulmon Hospitalists disease w acute lower resp infct J18.9 Pneumonia, unspecified organism Z87.891 Personal history of nicotine dependence 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 Office Visit 01/07/2018 2:45p Pulmonology And Bibi J98.4 Other disorders Sleep Services Of MD Romi of lung Oxygen Therapist J44.9 Chronic obstructive pulmonary disease, unspecified Office Visit 11/26/2017 12:00p Pulmonology And Bibi J98.4 Other disorders Sleep Services Of MD Romi of lung [facility] J44.9 Chronic obstructive pulmonary disease, unspecified Z87.891 Personal history of nicotine dependence Office Visit 10/16/2017 2:00p Pulmonology And Bibi J98.4 Other disorders Sleep Services Of MD Romi of lung [facility] J44.9 Chronic obstructive pulmonary disease, unspecified Z87.891 Personal history of nicotine dependence Plan of Treatment Future Appointment(s):11/08/2018 1:45 pm - Bibi Llanos MD at [facility]05/25/2018 9:15 am - Rayshawn Meek MD at [facility] Dqerco7005/10/2018 - Shamir Bose DO FACCI95.89 Other hypotensionComments:Let me know if you have further issues with symptomatic low blood pressure. We can increase the midodrine dose to 5 mg three times a day. For now, stay with 2.5 mg three times a day. As we discussed,the LDL bad cholesterol was 73. At the maximum, this should be less than 70. We are going to startgeneric zetia (ezetimibe) at 10 mg once a day.Follow up:f/u 1 yearE78.5 Hyperlipidemia, unspecifiedNew Medication:Ezetimibe 10 mg - take one tablet daily, use zwrkyqfG31.201 Nicotine dependence, unspecified, in edopsgggcQ68.9 Cerebral infarction, unspecified
--- NOTE | 2018-05-22 13:46 | ED ---
Lower Extremity - HPI Summary HPI Summary: This patient is a 72 year old male presenting to [facility] accompanied by family with a chief complaint of hard lump on his right leg since last night. Patient states that the lump showed up suddenly. The pain is rated 0/10 in severity. The bump is red and hard, but patient feels no pain. Patient states that the induration has swollen and increased in size since finding it last night. Symptoms aggravated by nothing. Symptoms alleviated by nothing. Patient denies chest pain, dysuria, nausea, vomiting, fever, abd pain. Patient states that he is otherwise asymptomatic. Patient is currently on blood thinners. - History of Current Complaint Chief Complaint: EDExtremityLower Stated Complaint: RED LUMP ON ABOVE RIGHT ANKLE PER PT Time Seen by Provider: 05/22/18 13:34 Hx Obtained From: Patient Mechanism Of Injury: Unknown Onset/Duration: Days - 1 Severity Currently: Mild Pain Intensity: 0 Pain Scale Used: 0-10 Numeric Timing: Constant Location: Is Discrete @ - right leg Associated Signs And Symptoms: Positive: Negative - chest pain, dysuria, nausea , vomiting, fever, abd pain Aggravating Factor(s): Nothing Alleviating Factor(s): Nothing Able to Bear Weight: Yes - Allergies/Home Medications Allergies/Adverse Reactions: Allergies Allergy/AdvReac Type Severity Reaction Status Date / Time baclofen Allergy confusion Verified 05/22/18 13:26 clarithromycin Allergy Rash Verified 05/22/18 13:26 moxifloxacin Allergy Rash Verified 05/22/18 13:26 PMH/Surg Hx/FS Hx/Imm Hx Previously Healthy: No Endocrine/Hematology History: Denies: Hx Diabetes Cardiovascular History: Reports: Hx Coronary Artery Disease - STENTS PLACED, Other Cardiovascular Problems/Disorders Denies: Hx Hypertension, Hx Pacemaker/ICD Respiratory History: Denies: Hx Asthma, Hx Chronic Obstructive Pulmonary Disease (COPD), Other Respiratory Problems/Disorders History: Denies: Hx Renal Disease Musculoskeletal History: Reports: Other Musculoskeletal History - Right sided weakness from stroke Sensory History: Reports: Hx Contacts or Glasses - GLASSES Denies: Hx Hearing Aid Opthamlomology History: Reports: Hx Contacts or Glasses - GLASSES Neurological History: Reports: Hx CVA - Right side, Other Neuro Impairments/ Disorders - DAUGHTER STATES PATIENT WILL SEE NEUROLOGIST-DR. 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 CARDIAC STENTS-1999 Hx Anesthesia Reactions: No Infectious Disease History: No Infectious Disease History: Denies: Traveled Outside the [place] in Last 30 Days - Family History Known Family History: Positive: Diabetes - father Family History: Other family history reviewed and noncontributory - Social History Alcohol Use: Rare Hx Substance Use: No Substance Use Type: Reports: None Hx Tobacco Use: Yes Smoking Status (MU): Former Smoker Amount Used/How Often: AT THE MOST 2 PPD X ON AND OFF 56 YEARS Have You Smoked in the Last Year: Yes Review of Systems Negative: Fever Negative: Sore Throat Negative: Palpitations, Chest Pain Negative: Shortness Of Breath, Cough Negative: Abdominal Pain, Vomiting, Diarrhea, Nausea Negative: dysuria, hematuria Negative: Arthralgia Positive: Rash All Other Systems Reviewed And Are Negative: Yes Physical Exam - Summary Physical Exam Summary: Constitutional: Well-developed, Well-nourished, Alert. Skin: Warm, Dry HENT: Normocephalic; Atraumatic Eyes: Conjunctiva normal Neck: Musculoskeletal ROM normal neck. Cardio: Rhythm regular, rate normal, Heart sounds normal; Intact distal pulses; The pedal pulses are 2+ and symmetric. Radial pulses are 2+ and symmetric. Pulmonary/Chest wall: Effort normal. Abd: Soft, Musculoskeletal: In mid medial anterior lower right leg, a 1.5cm circular ecchymosis, surrounded by erythema. Erythema is approx. 5cm in diameter. 3-4cm circular area that was circled by marker by the family and the erythema has extended past it. 1+ pitting edema in right leg, from below erythematous area. Mild tender to palpation. Lymph: Normal Neuro: Alert, Oriented x3 Psych: Mood and affect Normal Triage Information Reviewed: Yes Vital Signs On Initial Exam: Initial Vitals Temp Pulse Resp BP Pulse Ox 98.1 F 76 16 131/86 97 05/22/18 13:27 05/22/18 13:27 05/22/18 13:27 05/22/18 13:27 05/22/18 13:27 Vital Signs Reviewed: Yes Diagnostics - Vital Signs Vital Signs Temp Pulse Resp BP Pulse Ox 05/22/18 13:27 98.1 F 76 16 131/86 97 - Laboratory Result Diagrams: 05/22/18 14:10 05/22/18 14:10 Lab Statement: Any lab studies that have been ordered have been reviewed, and results considered in the medical decision making process. - Additional Comments Diagnostic Additional Comments: Venous Doppler Study reveals, per radiologist, IMPRESSION: NO EVIDENCE FOR DEEP VENOUS THROMBOSIS. ED physician has reviewed this radiology report. Lower Extremity Course/Dx - Course Course Of Treatment: This patient is a 72 year old male presenting to [facility] accompanied by family with a chief complaint of hard lump on his right leg since last night. Patient states that the lump showed up suddenly. The pain is rated 0/10 in severity. The bump is red and hard, but patient feels no pain. Patient states that the induration has swollen and increased in size since finding it last night. Venous Doppler Study reveals, per radiologist, IMPRESSION : NO EVIDENCE FOR DEEP VENOUS THROMBOSIS. ED physician has reviewed this radiology report. Bloodwork Obtained. In the ED course the patient was given Keflex. The pt is hemodynamically stable, alert and oriented x3. Patient will be discharged with a dx of cellulitis, hematoma. Patient is advised to follow up with PCP in 3 days. The patient is agreeable with this plan. - Diagnoses Provider Diagnoses: Cellulitis, Hematoma Discharge - Sign-Out/Discharge Documenting (check all that apply): Patient Departure Patient Received Moderate/Deep Sedation with Procedure: No - Discharge Plan Condition: Stable Disposition: HOME Prescriptions: Cephalexin CAP* [Keflex CAP*] 500 mg PO TID #30 cap Patient Education Materials: Cellulitis (ED), Hematoma (ED) Print Language: VENEZUELAN Referrals: Mari Tolentino NP [Primary Care Provider] - - Billing Disposition and Condition Condition: STABLE Disposition: Home - Attestation Statements Document Initiated by Avril: Yes Documenting Scribe: Reta Lopez Provider For Whom Avril is Documenting (Include Credential): MD Edward Brooksibe Attestation: Reta Pleitez scribed for Kimberly Colvin MD on 05/22/18 at 5513. Scribe Documentation Reviewed: Yes Provider Attestation: The documentation as recorded by the Reta rouse accurately reflects the service I personally performed and the decisions made by me, Kimberly Colvin MD Status of Scribe Document: Viewed
[2018-05-22 14:23] LABS: ABS Basophils 0.1 10^3/ul (0-0.2); ABS Eosinophils 0.3 10^3/ul (0-0.6); ABS Lymphocytes 1.4 10^3/ul (1.0-4.8); ABS Monocytes 0.7 10^3/ul (0-0.8); ABS Neutrophils 4.9 10^3/ul (1.5-7.7); ABS Nucleated RBC 0 10^3/ul; Eosinophil % 3.5 %; Hematocrit 41 % (36-46); Hemoglobin 13.9 g/dL (14.0-18.0); Mean Corpuscular HGB Conc 34 g/dL (31-36); Mean Corpuscular Hemoglobin 34 pg (27-31); Mean Corpuscular Volume 101 fL (80-94); Mean Platelet Volume 7.7 fL (7.4-10.4); Nucleated Red Blood Cells % 0.1; Platelet Count 327 10^3/uL (150-450); Red Blood Count 4.07 10^6 /uL (4.18-5.48); Red Cell Distribution Width 16 % (10.5-15); White Blood Count 7.3 10^3/uL (3.5-10.8)
[2018-05-22 14:32] LABS: Activated Partial Thrombo Time 29.4 seconds (26.0-36.3); INR 0.88 (0.77-1.02)
[2018-05-22 14:41] LABS: Albumin 3.7 g/dL (3.2-5.2); Albumin/Globulin Ratio 1.2 (1-3); BUN/Creatinine Ratio 22.3 (8-20); Calcium 9.4 mg/dL (8.6-10.3); EGFR African American 86.1 (>60); EGFR Non-African American 71.2 (>60); Globulin 3.2 g/dL (2-4); Potassium 3.8 mmol/L (3.5-5.0); Total Bilirubin 0.5 mg/dL (0.2-1.0); Total Protein 6.9 g/dL (6.4-8.9)
[2018-05-22] MEDS ORDERED: Cephalexin CAP* 500 MG PO ONE (14:46)
[2018-05-22 15:06] VITALS: BP 127/84
== END 2018-05-22 15:05 | disposition home or self-care (01) ==
LOC: ED 13:23
DX: S80.11XA Contusion of right lower leg, initial encounter (principal); X58.XXXA Exposure to other specified factors, initial encounter; L03.115 Cellulitis of right lower limb; I25.10 Atherosclerotic heart disease of native coronary artery without angina pectoris; I69.851 Hemiplegia and hemiparesis following other cerebrovascular disease affecting right dominant side; Z95.5 Presence of coronary angioplasty implant and graft; Z88.8 Allergy status to other drugs, medicaments and biological substances; Z88.3 Allergy status to other anti-infective agents; Z87.891 Personal history of nicotine dependence
CPT/HCPCS: 36415; 80053; 85025; 85610; 85730; 99283; A9270-GY

== ENCOUNTER → 2018-07-09 07:13 | Day surgery (SDC) | payer MEDICARE, BC ==
[~2018-07-09 07:13] MED LIST changes: +Acetaminophen TAB* 325 MG ONE; -Acetaminophen TAB* 325 MG PO PRN; -Buffered Lidocaine 0.9% SYRIN* 5 ML/SYR SYRINGE INTRADERM ONE; +Clopidogrel TAB* 75 MG ONE; +Clopidogrel TAB* 75 MG PO ONE; -Dexamethasone IV* 4 MG/ML 1 ML (4 MG) IV SLOW PU ONE; -Dexamethasone IV* 4 MG/ML 1 ML (4 MG) ONE; -DiMENhydriNATE IV* 50 MG/ML VIAL IV PUSH PRN; -Etomidate* 2 MG/ML 10 ML VIAL ONE; -Famotidine IV* 10 MG/ML 2 ML (20 mg) IV ONE; -Famotidine IV* 10 MG/ML 2 ML (20 mg) ONE; +Flumazenil* 0.1 MG/ML 5 ML MDV ONE; +Heparin 2 UNITS/ML IVPREMIX* 3,000 UNIT/1,500 ML BAG IV ONE; +Heparin(*) 1000 UNIT/ML 10 ML VIAL CATH LAB IV ONE; +Iohexol 350 (CONTRAST) 200 ML MDV IV ONE; +LORazepam TAB(*) 1 MG ONE; -Labetalol IV* 5 MG/ML 20 ML VIAL IV PUSH PRN; -Labetalol IV* 5 MG/ML 20 ML VIAL ONE; +Lidocaine 1% INJ* 10 MG/ML 30 ML SDV ONE; -Lidocaine 2% PF * 5 ML VIAL ONE; +Metoprolol Tartrate IV* 1 MG/ML 5 ML VIAL ONE; -Midazolam* 1 MG/ML 2 ML VIAL (2 MG) ONE; +Midazolam* 1 MG/ML 5 ML VIAL (5 MG) ONE; +NS 0.9% 1000 ML** 1,000 ML IV ONE; -Naloxone* 0.4 MG/ML 1 ML VIAL IV PRN; +Naloxone* 0.4 MG/ML 1 ML VIAL ONE; -Ondansetron INJ* 2 MG/ML VIAL ONE; -PROCHLORPERAZINE INJ 5 MG/ML 2 ML VIAL IV PRN; -Phenylephrine INJ* 10 MG/ML 1 ML VIAL (10 MG) ONE; -Propofol* 10 MG/ML 20 ML BTL IV PUSH ONE; -Rocuronium* 10 MG/ML VIAL ONE; -Sugammadex * 200 MG/2 ML VIAL IV PUSH ONE; -hydrALAZINE IV* 20 MG/ML VIAL IV SLOW PU PRN; +nitroGLYCERIN DRIP* 25,000 MCG/250 ML BTL ONE
[2018-07-09 16:25] LABS: ABS Basophils 0.1 10^3/ul (0-0.2); ABS Lymphocytes 1.1 10^3/ul (1.0-4.8); ABS Monocytes 0.6 10^3/ul (0-0.8); ABS Neutrophils 8.9 10^3/ul (1.5-7.7); Eosinophil % 0.4 %; Hematocrit 41 % (42-52); Hemoglobin 13.8 g/dL (14.0-18.0); Lymphocyte % 10.7 %; Mean Corpuscular HGB Conc 34 g/dL (31-36); Mean Corpuscular Hemoglobin 35 pg (27-31); Mean Corpuscular Volume 104 fL (80-94); Nucleated Red Blood Cells % 0.1; Platelet Count 281 10^3/uL (150-450); Red Blood Count 3.91 10^6 /uL (4.18-5.48); Red Cell Distribution Width 15 % (10.5-15); White Blood Count 10.7 10^3/uL (3.5-10.8)
[2018-07-09 16:39] LABS: INR 0.98 (0.82-1.09)
[2018-07-09 16:44] LABS: Troponin I 0.01 ng/mL (<0.04)
[2018-07-09 16:45] LABS: Albumin 3.5 g/dL (3.2-5.2); Albumin/Globulin Ratio 1.1 (1-3); EGFR African American 88.9 (>60); EGFR Non-African American 73.5 (>60); Globulin 3.2 g/dL (2-4); HDL Cholesterol 40.6 mg/dL; Potassium 4.1 mmol/L (3.5-5.0); Total Bilirubin 0.7 mg/dL (0.2-1.0); Total Protein 6.7 g/dL (6.4-8.9)
--- NOTE | 2018-07-09 17:45 | PN ---
Progress Note - Progress Note Date of Service: 07/09/18 SOAP: Subjective: Patient denies any pain. Back pain resolved after he was able to sit upright and received Tylenol. Denies pain in left groin. Currently denies visual disturbance or dizziness. The patient's daughter was concerned that Ethan's speech seemed "slurred". This led to a Code Tadeo call including evaluation with Dr. Maier. Objective: Selected Entries 07/09/18 07/09/18 07/09/18 07:31 13:36 13:46 Heart Rate 61 54 51 Respiratory 19 10 16 Rate Blood Pressure 116/80 160/79 155/80 (mmHg) Blood Pressure 87 109 103 Mean O2 Sat by Pulse 97 97 Oximetry 07/09/18 07/09/18 07/09/18 16:50 17:05 17:20 Heart Rate 53 55 54 Respiratory 20 16 Rate Blood Pressure 153/76 167/81 158/79 (mmHg) Blood Pressure 110 107 107 Mean O2 Sat by Pulse 97 94 98 Oximetry NAD, AAO x 3 Speech is fluent Right facial droop is at his baseline Weakness right upper & lower extremities are at his baseline 2+ pulses at bilateral brachial and radial arteries 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 Groin is soft and nontender. Assessment: 73 YOM status post arteriography and stenting of left subclavian artery with a 6mm x 37 mm ICast covered stent. About 4 hours post procedure the patient's daughter felt that his speech seemed more slurred than normal. A code tadeo was called and the patient was evaluated by Dr. Maier. Head CT did not show any signs of intracranial hemorrhage or stroke. Please see Dr. Maier's note regarding his assessment. The patient's blood pressure, measured exclusively on the left arm, went from "1 -teens" / 80 to 160/80 post stenting of left SCA. The blood pressures taken on the patient's left arm has been falsely low due to the stenotic left SCA. I had a conversation with Dr. Bose regarding Ethan's blood pressure. He agreed that the patient should stop taking Midodrine. Plan: 1. D/C to home. 2. 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 If +signs of hematoma she was instructed to hold direct manual pressure and call an ambulance. 3. Stop Midrodrine. 4. Patient will continue to monitor BP which should be accurate after revascularization and stenting of left SCA. 5. Add ASA 81 mg PO daily. 6. Follow up will include IR clinic nurse call 07/12/18 and clinic follow up in 1 month.
[2018-07-09 17:59] VITALS: BP 158/72
--- NOTE | 2018-07-12 03:52 | CONS ---
NEUROLOGY CONSULTATION NOTE: DATE OF CONSULT: 07/09/18 - [facility] CATH CONSULTING PROVIDER: Dr. Mills. REASON FOR CONSULT: Acute stroke alert to evaluate the patient for slurred speech. CHIEF COMPLAINT: "I have no new complaints." HISTORY OF PRESENT ILLNESS: Mr. 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 The patient did receive moderate sedation. He was last known well at 9 a.m. before the procedure. He did receive both fentanyl and Versed. Following the procedure, the patient's daughter stated that the patient was sleeping up until about 3 o'clock. When he woke up, the patient was slightly slurring his words. His blood pressure was slightly elevated. His daughter who is an EMS was concerned that he may be having a stroke. A stroke call was activated at 3:53. When I assessed the patient, the patient had no complaints. He did not recognize his deficits or he did not think he was slurring his words. The examiner did not think that the patient had acute dysarthria. His Accu-Chek was within normal range at 130. Blood pressure was slightly elevated with systolic blood pressure in the 167/82. NIH stroke scale is abnormal only because of the patient's previous deficits. For instance, NIH stroke scale is 0; however, due to the patient's right hemiparesis and right facial droop, he scored a total of 6 due to chronic old deficits. The patient was loaded with Plavix earlier. He denied any headaches, visual disturbance, any new weakness or paraesthesias. He denied any impairment in his bowel or bladder function. He denied any seizure-like activity. The patient had a CT head without contrast that showed no evidence of acute intracranial abnormality. He has got a small old left lenticulostriate infarction. AST MEDICAL HISTORY: 1. CVA with paralysis of the right upper extremity and weakness of the right lower extremity. 2. Coronary artery disease with 5 stents. 3. Hyperlipidemia. 4. COPD. 5. Vertigo. 6. He was a former smoker, but he quit on 08/01/17. He used to smoke 2-pack per day since 16 years of age. PAST SURGICAL HISTORY: Stents placed in the coronary vessel as well as an inguinal hernia repair. HOME MEDICATIONS: 1. Nystatin. 2. MiraLAX. 3. Senna. 4. Docusate. 5. Acetaminophen 650 mg every 4 hours as needed. 6. Zinc 50 mg p.o. in the morning. 7. Vitamin B complex 150 mg p.o. in the morning. 8. Fluoxetine 20 mg p.o. in the morning. 9. Clopidogrel 75 mg p.o. in the morning. 10. Magnesium oxide 400 mg p.o. b.i.d. 11. Albuterol. 12. Melatonin. 13. Midodrine 5 mg p.o. t.i.d. 14. Atorvastatin 80 mg p.o. at night. 15. Tizanidine 4 mg p.o. every 8 hours as needed. 16. Ezetimibe 10 mg p.o. daily. ALLERGIES: BACLOFEN, CLARITHROMYCIN, MOXIFLOXACIN. SOCIAL HISTORY: He lives with his daughter, walks with a navi walker. He does rarely drink alcohol. There is no history of stroke or seizures in the family. REVIEW OF SYSTEMS: A 14-point review of systems was obtained and otherwise negative except for what was mentioned in the HPI. PHYSICAL EXAM: Vitals: Temperature was 97.4, heart rate of 55, respiratory rate of 23, oxygen saturation of 99, and blood pressure of 167/82. General: Well- nourished, well-developed man in no acute distress. Head: Normocephalic , atraumatic, without any obvious symptomatology. Eyes: Conjunctivae/corneas are clear. Neck is supple and symmetrical with no carotid bruits. Lungs are clear to auscultation bilaterally. Cardiovascular: Regular rate and rhythm with normal S1, S2. Extremities: Normal range of motion except for he has restricted range of motion on the right upper extremity due to paralysis. Skin : No skin lesions or lacerations. Psych: Affect is broad and normal mood. Mental Status: Awake, alert, oriented to person, place, and time, and general circumstances. Speech and language including expression, naming, repetition, comprehension were assessed and found to be normal. Cranial Nerves: Normal confrontation testing bilaterally. Sensation is intact on the forehead, cheeks, and jaw region bilaterally. He has a right facial droop which is chronic. He is able to hear throughout the history process. Symmetrical palatal elevation. Normal strength against resistance. Tongue is symmetric and midline with no atrophy or fasciculation. Motor Examination: He is plegic on the right upper extremity with some movement, but not against gravity. He is able to move the right leg and able to lift the left arm and left leg against gravity with some resistance and against resistance. Reflexes: 2+ in the right upper brachioradialis, biceps, and triceps, 1+ throughout upper and lower extremities with 0 at the ankles bilaterally. Plantar flexor/flexor. Sensation is intact throughout. Coordination: Normal finger-to- nose on the left, unable to perform on the right. Gait was not assessed. ASSESSMENT AND RECOMMENDATIONS: Mr. Ethan Nieves is a 73-year-old man, who has a history of left lacunar infarct with residual right hemiparesis, right facial droop, who is status post angio to the left subclavian artery, who woke up after anesthesia and was noted to have slurred speech. On examination, the patient seems to be at his baseline with no acute complaints. His daughter agreed that his slurred speech improved. I suspect the patient may have had mild toxic encephalopathy related to anesthesia. He is not manifesting with any focal neurological deficits. His repeat CT head did not show any evidence of acute hemorrhage or any new stroke. Therefore, I do not suspect the patient had a transient ischemic attack or stroke, instead I suspect that he had postanesthesia side effects. I do not recommend any further stroke workup. Please monitor the patient's blood pressure and slowly decrease it to normal range. I discussed these recommendations with the patient and his daughter at bedside who agreed with the plan. Please contact us for any questions or concern; otherwise I will sign off. [id number]/[facility] #: [id number] [place]ITALCon[facility]
== END | disposition home or self-care (01) ==
LOC: CHICATH 07:13
PROVIDERS: ATTEND Radiology Diagnostic Radiology
DX: I70.218 Atherosclerosis of native arteries of extremities with intermittent claudication, other extremity (principal); E11.9 Type 2 diabetes mellitus without complications; I69.16 Other paralytic syndrome following nontraumatic intracerebral hemorrhage; Z95.5 Presence of coronary angioplasty implant and graft; Z87.891 Personal history of nicotine dependence; E78.00 Pure hypercholesterolemia, unspecified; Z79.01 Long term (current) use of anticoagulants; I10 Essential (primary) hypertension; Z85.810 Personal history of malignant neoplasm of tongue; R42 Dizziness and giddiness; J44.9 Chronic obstructive pulmonary disease, unspecified; Z79.899 Other long term (current) drug therapy
CPT/HCPCS: 36415; 70450; 71045; 76937; 80053; 80061; 84484; 85025; 85347; 85610; 85730; 93567; 99156; 99157; A9270-GY; C1725; C1760; C1769; C1874; C1887; C1894; J1644; J2250; J2310; J3010; J3490

== ENCOUNTER 2018-08-26 15:44 | Emergency (ER) | payer MEDICARE, BC ==
--- OUTSIDE RECORDS SUMMARY | 2018-08-26 16:00 | XMS REPORT | Continuity of Care Document ---
:1945 External Reference #:[id number] Author Name MELISSA Christopher Address [address] [place] [address] Care Team Providers Name Role Phone Mari Tolentino N.PJagruti Care Team Information Heating Repair Technician Unavailable Mari Tolentino N.P. Primary Care Physician Unavailable Payers Date Identification Numbers Payment Provider Subscriber Policy Number: [id number] Medicare Ethan V Ezequiel PayID: [id number] [address] [place] [address] Effective: 2015 Policy Number: [id number] [facility] Ethan V Ezequiel PayID: [id number] [address] [address] [place] [address] Problems Active Problems Provider Date Proteinuria Max Tam MD Onset: 11/03/2017 Urge incontinence of urine Max Tam MD Onset: 09/14/2017 Nocturia Max Tam MD Onset: 09/14/2017 Raised prostate specific antigen Max Tam MD Onset: 09/14/2017 Family History Date Family Member(s) Observation Comments Father Diabetes Mellitus I Social History Type Date Description Comments Sex Unknown Marital Status Tobacco Use Start: Unknown current cigarette smoker Smoking Status Reviewed: 11/10/17 current cigarette smoker ETOH Use Occ Alcohol Intake Allergies, Adverse Reactions, Alerts Active Allergies Reaction Severity Comments Date Baclofen Per pt he stated he gets loopy 09/14/2017 Clarithromycin unknown 09/14/2017 Moxifloxacin unknown 09/14/2017 Medications Active Medications SIG Qnty Indications Ordering Date Provider Bedside Drainage use as directed 10units Max Cervantes 03/25/2018 Collection MD Yonatan Sys/Valve/Tube/Port/Mcginnis nger/Clamp Kit Probiotic 1 tablet by mouth Unknown Capsules daily while on macrobid Atorvastatin Calcium Unknown 80mg Tablets Magnesium Oxide Unknown 400mg Capsules Cyclobenzaprine HCL Unknown 10mg Tablets Nystatin apply to rashy Unknown [id number]/GM areas twice a day Cream as needed for itching/pain Miralax mix with 4 to 8 oz Unknown [id number] Packet of water daily as needed for constipation Senna Laxative 2 by mouth at Unknown 8.6mg bedtime as needed Tablets for constipation Colace 1 by mouth twice a Unknown 100mg Capsules day as needed for constipation Acetaminophen ER take 2 twice daily Unknown 650mg as needed Tablets ER Midkiff-3 1-2 by mouth every Unknown 1000mg Capsules day Zinc daily Unknown 30mg Tablets Vitamin D-400 daily Unknown 400Unit Tablets Super B Complex Maxi 1 by mouth every Unknown day Tablets Prozac 1 by mouth every Unknown 20mg Capsules day Plavix 1 by mouth every Unknown 75mg Tablets day History Medications Gentamicin Sulfate 240mg intramuscular [facility] 11/10/2017 - x 1 dose MD Yonatan 11/11/2017 40mg/ml Solution Bactrim DS 1 by mouth twice a 6tabs R97.20 [facility] 11/03/2017 - day, begin on MD Yonatan 03/24/2018 800-160mg Tablets evening prior to procedure Aspirin take 1 tablet (325 Unknown - 325mg mg total) by mouth 11/02/2017 Tablets daily [facility] Leg Cramps 1 tablet can take at Unknown - PM bedtime as needed 11/09/2017 for leg cramps Nicotine place 1 patch on the Unknown - Transdermal System skin daily 11/09/2017 Step 3 7mg/24HR Patches 24HR Midodrine HCL Unknown - 2.5mg 08/01/2018 Tablets Medications Administered in Office Medication SIG Qnty Indications Ordering Provider Date Gentamicin Up To 80MG Dose, Max Tam MD 11/10/2017 40MG/ML Multi-Use Vial Injection Vital Signs Date Vital Result Comment 08/02/2018 11:12am Height 72 inches 6'0" Weight 164.00 lb Weight 74.390 kg BMI (Body Mass Index) 22.2 kg/m2 BP Systolic 131 mmHg BP Diastolic 76 mmHg Heart Rate 59 /min 03/25/2018 1:06pm Height 72 inches 6'0" Weight 164.00 lb Weight 74.390 kg BMI (Body Mass Index) 22.2 kg/m2 BP Systolic 116 mmHg BP Diastolic 78 mmHg Heart Rate 65 /min Respiratory Rate 16 /min 11/20/2017 3:07pm Height 72 inches 6'0" Weight 163.00 lb Weight 73.937 kg BMI (Body Mass Index) 22.1 kg/m2 BP Systolic 122 mmHg BP Diastolic 80 mmHg Heart Rate 78 /min 11/10/2017 11:44am Height 72 inches 6'0" Weight 160.00 lb Weight 72.576 kg BMI (Body Mass Index) 21.7 kg/m2 BP Systolic 104 mmHg BP Diastolic 68 mmHg Heart Rate 67 /min Respiratory Rate 16 /min 11/10/2017 11:44am Height 72 inches 6'0" Weight 160.00 lb Weight 72.576 kg BMI (Body Mass Index) 21.7 kg/m2 11/03/2017 1:23pm Height 72 inches 6'0" Weight 160.00 lb Weight 72.576 kg BMI (Body Mass Index) 21.7 kg/m2 BP Systolic 100 mmHg BP Diastolic 72 mmHg Heart Rate 60 /min 09/16/2017 9:47am Height 72 inches 6'0" Weight 150.00 lb Weight 68.040 kg BMI (Body Mass Index) 20.3 kg/m2 BP Systolic 103 mmHg BP Diastolic 74 mmHg Heart Rate 87 /min 09/14/2017 11:34am Height 72 inches 6'0" Weight 163.00 lb Weight 73.937 kg BMI (Body Mass Index) 22.1 kg/m2 BP Systolic 101 mmHg BP Diastolic 73 mmHg Heart Rate 67 /min Respiratory Rate 16 /min Post Void Residual ml 83 Results Test Date Facility Test Result H/L Range Note Laboratory test 07/13/2018 [facility] 3.13 ng/mL 0.00-4.00 finding [address] [facility] [place] [id number] [phone] Laboratory test 03/16/2018 [facility] Free PSA 1.0 ng /mL finding [address] [place] [address] [phone] Total [facility]sa Only 4.09 ng/mL High 0.00-4.00 % PSA 24.450 1 Prostate Biopsy 11/10/2017 [facility] Clinical History R97.[address] [place] [address] [id number] [phone] Left Base Benign prostatic <SEE NOTE> N 2 Left Lateral Base Benign prostatic <SEE NOTE> N 3 Left Mid Benign prostatic <SEE NOTE> N 4 Left Calvin Benign prostatic <SEE NOTE> N 5 Left Lateral Calvin Benign prostatic <SEE NOTE> N 6 Right Base Benign prostatic <SEE NOTE> N 7 Right Lateral Base Benign prostatic <SEE NOTE> N 8 Right Mid Benign prostatic <SEE NOTE> N 9 Right Calvin Benign prostatic <SEE NOTE> N 10 Right Lateral Calvin Benign prostatic <SEE NOTE> N 11 PDF Report SEE IMAGE 230 Ua Routine 11/10/2017 [facility] Ua Glucose Negative REF TO DR ADDRESS ON ORDER FOR (315)- - Ua Protein 2+ * Ua Nitrite Negative Ua Leuko Negative Ua Blood Negative Ua Color Not Entered Ua Ketones Negative Ua Clarity Not Entered Ua Specific [place] 1.025 1.003-1.030 Ua PH 7.0 5.0-7.5 Ua Bilirubin Negative Ua Urobilinogen 0.2 E.U./dL 0.0-1.0 Xray 11/10/2017 [facility] Transrectal 29.9g [address] [place] [phone] 230 Ua Routine 11/03/2017 [facility] Ua Glucose Negative REF TO DR ADDRESS ON ORDER FOR (315)- - Ua Protein 3+ * Ua Nitrite Negative Ua Leuko Negative Ua Blood Negative Ua Color Not Entered Ua Ketones Negative Ua Clarity Not Entered Ua Specific [place] >=1.030 1.003-1.030 Ua PH 7.5 5.0-7.5 Ua Bilirubin Negative Ua Urobilinogen 0.2 E.U./dL 0.0-1.0 Laboratory test finding 10/30/2017 [facility] Free PSA 0.7 ng/mL [address] [place] [address] [phone] Total Psa Only 5.34 ng/mL High 0.00-4.00 % PSA 13.109 12 Laboratory test 10/30/2017 [facility] Rectal Swab NEGATIVE - No 13 finding [address] <SEE NOTE> [place] [address] [phone] Laboratory test 09/14/2017 [facility] Free PSA 0.6 ng /mL finding [address] [place] [address] [phone] Total Psa Only 6.20 ng/mL High 0.00-4.00 % PSA 9.677 14 Laboratory test 06/23/2017 Outside Facility PSA Total 4.600 High 0.000- 4.000 finding (315)- - Laboratory test 02/21/2016 Outside Facility PSA Total 2.360 0.000-4.000 finding (315)- - 1 % Free PSA Range Probability of [...] diagnosis of prostate cancer. (KLAUS 1998: 279: 9789-8430) 2 Benign prostatic tissue. 3 Benign prostatic tissue. 4 Benign prostatic tissue. 5 Benign prostatic tissue. 6 Benign prostatic tissue. 7 Benign prostatic tissue. 8 Benign prostatic tissue. 9 Benign prostatic tissue. 10 Benign prostatic tissue. 11 Benign prostatic tissue. Mild acute inflammation present. 12 % Free PSA Range Probability of Prostate [...] diagnosis of prostate cancer. (KLAUS 1998: 279: 3242-5848) 13 NEGATIVE - No Fluoroquinolone Resistant Organisms Isolated NOTE: The culture procedure is also validated by concurrent blood agar control. 14 % Free PSA Range Probability of Prostate [...] diagnosis of prostate cancer. (KLAUS 1998: 279: 7487-1793) Procedures Date Code Description Status 11/10/2017 63986 Injection, Therapeutic, Prophylactic, Or Diagnostic Completed Injection 11/10/2017 29950 Ultrasonic Guidance For Needle Placement(Biopsy);Supervis Completed & Inter 11/10/2017 30024 Ultrasound,Prostate-Ultrasound Completed 11/10/2017 46835 Biopsy, Prostate, Needle Or Punch, Single Or Multiple, Any Completed Approa 09/14/2017 80615 Bladder Scan, Post Voiding Residual Urine Completed Encounters Type Date Location Provider Dx Diagnosis Office Visit 08/02/2018 Michelle [email or web address] Elevated prostate 11:20a Urology PA specific antigen [PSA] N39.41 Urge incontinence Office Visit 03/25/2018 1:00p Michelle [email or web address] Elevated Urology PA prostate specific antigen [PSA] R35.1 Nocturia Office Visit 11/20/2017 3:20p Michelle [email or web address] Elevated Urology PA prostate specific antigen [PSA] Office Visit 11/03/2017 1:20p Moriah Cervantes R97.20 Elevated Urology MD Yonatan prostate specific antigen [PSA] R35.1 Nocturia R80.0 Isolated proteinuria Office Visit 09/16/2017 10:00a Moriah Mccullough R97.20 Elevated Urology PA prostate specific antigen [PSA] Office Visit 09/14/2017 11:20a Moriah [email or web address] Elevated Shaynay MD Yonatan prostate specific antigen [PSA] R35.1 Nocturia N39.41 Urge incontinence Plan of Treatment Future Appointment(s):12/06/2018 1:00 pm - MELISSA Christopher at [facility]/ [facility] Yyqabvt80/24/2019 1:10 pm - [facility] [place]/ [facility] [id number] - Lindsay Mccullough, [id number] Elevated prostate specific antigen [PSA]New Labs:PSA Total, Ordered: 08/02/18Comments:Lab reports were personally reviewed during the office visit today. PSA improved over prior. Will continue with frequent follow up at present. If continuing to improve, may change to q 6 month follow up.N39.41 Urge incontinenceComments:Likely some functional element here. Will await continued improvement with continued improvement in mobility. He will call if worsening and intervention will be considered as appropriate. He will call if any issues arise prior. All questions addressed to patient's satisfaction.AllFollow up:4 months with PSA prior Dr. Tam is the supervising physician.
[2018-08-26 17:22] LABS: ABS Basophils 0.1 10^3/ul (0-0.2); ABS Eosinophils 0.5 10^3/ul (0-0.6); ABS Lymphocytes 1.8 10^3/ul (1.0-4.8); ABS Monocytes 0.9 10^3/ul (0-0.8); ABS Neutrophils 4.3 10^3/ul (1.5-7.7); Eosinophil % 6.5 %; Hematocrit 41 % (42-52); Hemoglobin 13.8 g/dL (14.0-18.0); Lymphocyte % 23.7 %; Mean Corpuscular HGB Conc 34 g/dL (31-36); Mean Corpuscular Hemoglobin 36 pg (27-31); Mean Corpuscular Volume 106 fL (80-94); Mean Platelet Volume 7.7 fL (7.4-10.4); Nucleated Red Blood Cells % 0.1; Platelet Count 326 10^3/uL (150-450); Red Blood Count 3.82 10^6 /uL (4.18-5.48); Red Cell Distribution Width 15 % (10-15); White Blood Count 7.5 10^3/uL (3.5-10.8)
[2018-08-26 17:28] LABS: INR 1.03 (0.82-1.09)
[2018-08-26 17:37] LABS: HDL Cholesterol 39.1 mg/dL
[2018-08-26 17:38] LABS: Albumin 3.9 g/dL (3.2-5.2); Albumin/Globulin Ratio 1.1 (1-3); BUN/Creatinine Ratio 18.3 (8-20); Calcium 9.8 mg/dL (8.6-10.3); EGFR African American 80.5 (>60); EGFR Non-African American 66.5 (>60); Globulin 3.5 g/dL (2-4); Potassium 4.4 mmol/L (3.5-5.0); Total Bilirubin 0.6 mg/dL (0.2-1.0); Total Protein 7.4 g/dL (6.4-8.9)
--- NOTE | 2018-08-26 19:41 | ED ---
Syncope/Near Syncope - HPI Summary HPI Summary: Patient presents to the ED with daughter complaining of dizziness. When patient asked he defines dizziness as being lightheaded when he stands up rapidly. Symptoms resolve and then patient ambulates normally. Patient denies any symptoms of room spinning. Daughter states symptoms have been going on for a year, but seem more intense past 2 weeks. Daughter also uses the term dizziness, but agrees agrees patient symptoms are with rapid change in position from sitting to standing and that he ambulates normally once lightheadedness is passed. Daughter states patient takes meclizine for these symptoms with no improvement. Daughter called office of neurologist Dr. Meek today, spoke to the PA about symptoms of "dizziness" and was advised to come to the ED. Patient and daughter frequently uses the word dizziness, but described symptoms are more consistent with lightheadedness. Also complains of head and nasal congestion, history of same for years. Denies any other pain or injury or symptoms. - History Of Current Complaint Chief Complaint: EDDizziness Time Seen by Provider: 08/26/18 17:44 Hx Obtained From: Patient, Family/Senior Compensation Analyst Onset/Duration: Gradual Onset, Lasting Weeks Timing: Intermittent Episode Lasting Context: Witnessed Activity At Onset: Other Associated Head Trauma: No Aggravating Factor(s): Position Change Alleviating Factor(s): Spontaneous Resolution Associated Signs And Symptoms: Negative - Allergies/Home Medications Allergies/Adverse Reactions: Allergies Allergy/AdvReac Type Severity Reaction Status Date / Time baclofen Allergy confusion Verified 06/24/18 17:52 clarithromycin Allergy Rash Verified 06/24/18 17:52 moxifloxacin Allergy Rash Verified 06/24/18 17:52 Home Medications: Home Medications Acetaminophen [Acetaminophen ER] 1,300 mg PO BID PRN 08/26/18 [History Confirmed 08/26/18] Niacin ER CAP* [Niaspan ER CAP*] 1,000 mg PO DAILY 08/26/18 [History Confirmed 08/26/18] Sennosides [Senna Lax] 17.2 mg PO DAILY PRN 08/26/18 [History Confirmed 08/26/18 ] PMH/Surg Hx/FS Hx/Imm Hx Endocrine/Hematology History: Denies: Hx Diabetes Cardiovascular History: Reports: Hx Coronary Artery Disease - STENTS PLACED, Hx Hypercholesterolemia, Other Cardiovascular Problems/Disorders Denies: Hx Angina, Hx Hypertension, Hx Myocardial Infarction, Hx Pacemaker/ ICD, Hx Valvular Heart Disease Respiratory History: Denies: Hx Asthma, Hx Chronic Obstructive Pulmonary Disease (COPD), Other Respiratory Problems/Disorders History: Denies: Hx Chronic Renal Failure, Hx Dialysis, Hx Renal Disease Musculoskeletal History: Reports: Other Musculoskeletal History - Right sided weakness from stroke Sensory History: Reports: Hx Contacts or Glasses Denies: Hx Hearing Aid Opthamlomology History: Reports: Hx Contacts or Glasses Neurological History: Reports: Hx CVA - Right side, Other Neuro Impairments/ Disorders - DAUGHTER STATES PATIENT WILL SEE NEUROLOGIST-DR. 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 CARDIAC STENTS-1999 Hx Anesthesia Reactions: No Infectious Disease History: No Infectious Disease History: Denies: Traveled Outside the [place] in Last 30 Days - Family History Known Family History: Positive: Diabetes - father Family History: Other family history reviewed and noncontributory - Social History Alcohol Use: Rare Hx Substance Use: No Substance Use Type: Reports: None Hx Tobacco Use: Yes Smoking Status (MU): Light Every Day Tobacco Smoker Amount Used/How Often: AT THE MOST 2 PPD X ON AND OFF 56 YEARS Have You Smoked in the Last Year: Yes Review of Systems Constitutional: Negative Eyes: Negative ENT: Negative Cardiovascular: Negative Respiratory: Negative Gastrointestinal: Negative Genitourinary: Negative Musculoskeletal: Negative Skin: Negative Neurological: Negative Psychological: Normal All Other Systems Reviewed And Are Negative: Yes Physical Exam - Summary Physical Exam Summary: Neuro exam normal. Abdomen soft nontender. Lung sounds clear to auscultation bilaterally. RRR. Triage Information Reviewed: Yes Vital Signs On Initial Exam: Initial Vitals Temp Pulse Resp BP Pulse Ox 98.8 F 62 18 159/80 96 08/26/18 15:48 08/26/18 15:48 08/26/18 15:48 08/26/18 15:48 08/26/18 15:48 Vital Signs Reviewed: Yes Appearance: Positive: Well-Appearing Skin: Positive: Warm Head/Face: Positive: Normal Head/Face Inspection Eyes: Positive: Normal Neck: Positive: Supple Respiratory/Lung Sounds: Positive: Clear to Auscultation Cardiovascular: Positive: Normal Abdomen Description: Positive: Nontender Musculoskeletal: Positive: Normal Neurological: Positive: Normal Psychiatric: Positive: Normal AVPU Assessment: Alert - [place] Coma Scale Best Eye Response: 4 - Spontaneous Best Motor Response: 6 - Obeys Commands Best Verbal Response: 5 - Oriented Coma Scale Total: 15 Diagnostics - Vital Signs Vital Signs Temp Pulse Resp BP Pulse Ox 08/26/18 19:00 16 08/26/18 18:57 96 08/26/18 18:56 65 181/90 08/26/18 18:50 20 181/90 08/26/18 18:48 16 194/90 08/26/18 18:42 15 194/82 08/26/18 18:14 54 16 195/82 97 08/26/18 18:00 52 19 98 08/26/18 17:46 51 17 197/101 98 08/26/18 17:45 52 202/92 98 08/26/18 17:43 52 98 08/26/18 15:48 98.8 F 62 18 159/80 96 - Laboratory Lab Results: Lab Results 08/26/18 08/26/18 08/26/18 Range/Units 17:07 17:07 17:07 WBC (3.5-10.8) 10^3/uL RBC (4.18-5.48) 10^6 /uL Hgb (14.0-18.0) g/dL Hct (42-52) % MCV (80-94) fL MCH (27-31) pg MCHC (31-36) g/dL RDW (10-15) % Plt Count (150-450) 10^3/uL MPV (7.4-10.4) fL Neut % (Auto) % Lymph % (Auto) % [place] % (Auto) % Eos % (Auto) % Baso % (Auto) % Absolute Neuts (auto) (1.5-7.7) 10^3/ul Absolute Lymphs (auto) (1.0-4.8) 10^3/ul Absolute Monos (auto) (0-0.8) 10^3/ul Absolute Eos (auto) (0-0.6) 10^3/ul Absolute Basos (auto) (0-0.2) 10^3/ul Absolute Nucleated RBC 10^3/ul Nucleated RBC % INR (Anticoag Therapy) 1.03 (0.82-1.09) APTT 33.0 (26.0-38.0) seconds Sodium 135 (135-145) mmol/L Potassium 4.4 (3.5-5.0) mmol/L Chloride 102 (101-111) mmol/L Carbon Dioxide 28 (22-32) mmol/L Anion Gap 5 (2-11) mmol/L BUN 20 (6-24) mg/dL Creatinine 1.09 (0.67-1.17) mg/dL Est GFR ( Amer) 80.5 (>60) Est GFR (Non-Af Amer) 66.5 (>60) BUN/Creatinine Ratio 18.3 (8-20) Glucose 99 (70-100) mg/dL Lactic Acid (0.5-2.0) mmol/L Calcium 9.8 (8.6-10.3) mg/dL Total Bilirubin 0.60 (0.2-1.0) mg/dL AST 45 H (13-39) U/L ALT 54 H (7-52) U/L Alkaline Phosphatase 80 (34-104) U/L Troponin I 0.00 (<0.04) ng/mL Total Protein 7.4 (6.4-8.9) g/dL Albumin 3.9 (3.2-5.2) g/dL Globulin 3.5 (2-4) g/dL Albumin/Globulin Ratio 1.1 (1-3) Triglycerides 55 mg/dL Cholesterol 101 mg/dL LDL Cholesterol 51 mg/dL HDL Cholesterol 39.1 mg/dL 08/26/18 08/26/18 Range/Units 17:08 17:08 WBC 7.5 (3.5-10.8) 10^3/uL RBC 3.82 L (4.18-5.48) 10^6 /uL Hgb 13.8 L (14.0-18.0) g/dL Hct 41 L (42-52) % MCV 106 H (80-94) fL MCH 36 H (27-31) pg MCHC 34 (31-36) g/dL RDW 15 (10-15) % Plt Count 326 (150-450) 10^3/uL MPV 7.7 (7.4-10.4) fL Neut % (Auto) 56.5 % Lymph % (Auto) 23.7 % [place] % (Auto) 12.2 % Eos % (Auto) 6.5 % Baso % (Auto) 1.1 % Absolute Neuts (auto) 4.3 (1.5-7.7) 10^3/ul Absolute Lymphs (auto) 1.8 (1.0-4.8) 10^3/ul Absolute Monos (auto) 0.9 H (0-0.8) 10^3/ul Absolute Eos (auto) 0.5 (0-0.6) 10^3/ul Absolute Basos (auto) 0.1 (0-0.2) 10^3/ul Absolute Nucleated RBC 0.0 10^3/ul Nucleated RBC % 0.1 INR (Anticoag Therapy) (0.82-1.09) APTT (26.0-38.0) seconds Sodium (135-145) mmol/L Potassium (3.5-5.0) mmol/L Chloride (101-111) mmol/L Carbon Dioxide (22-32) mmol/L Anion Gap (2-11) mmol/L BUN (6-24) mg/dL Creatinine (0.67-1.17) mg/dL Est GFR ( Amer) (>60) Est GFR (Non-Af Amer) (>60) BUN/Creatinine Ratio (8-20) Glucose (70-100) mg/dL Lactic Acid 1.1 (0.5-2.0) mmol/L Calcium (8.6-10.3) mg/dL Total Bilirubin (0.2-1.0) mg/dL AST (13-39) U/L ALT (7-52) U/L Alkaline Phosphatase (34-104) U/L Troponin I (<0.04) ng/mL Total Protein (6.4-8.9) g/dL Albumin (3.2-5.2) g/dL Globulin (2-4) g/dL Albumin/Globulin Ratio (1-3) Triglycerides mg/dL Cholesterol mg/dL LDL Cholesterol mg/dL HDL Cholesterol mg/dL Result Diagrams: 08/26/18 17:08 08/26/18 17:07 Lab Statement: Any lab studies that have been ordered have been reviewed, and results considered in the medical decision making process. Course/Dx Course Of Treatment: Patient presents to the ED with daughter complaining of dizziness. When patient asked he defines dizziness as being lightheaded when he stands up rapidly. Symptoms resolve and then patient ambulates normally. Patient denies any symptoms of room spinning. Daughter states symptoms have been going on for a year, but seem more intense past 2 weeks. Daughter also uses the term dizziness, but agrees agrees patient symptoms are with rapid change in position from sitting to standing and that he ambulates normally once lightheadedness is passed. Daughter states patient takes meclizine for these symptoms with no improvement. Daughter called office of neurologist Dr. Meek today, spoke to the PA about symptoms of "dizziness" and was advised to come to the ED. Patient and daughter frequently uses the word dizziness, but described symptoms are more consistent with lightheadedness. Also complains of head and nasal congestion, history of same for years. Denies any other pain or injury or symptoms. Patient bradycardic with heart rate in the 50s, Vital signs otherwise within normal limits. History of bradycardia. Labs unremarkable. CT brain negative. Chest x-ray unremarkable. Orthostatics negative. Patient and daughter advised to follow up with cardiology for further evaluation of lightheadedness in association with change in position. Patient's sustainable communities designer is Dr. Bose. Patient and daughter understand and approve plan. - Diagnoses Provider Diagnoses: Orthostatic hypotension Discharge - Sign-Out/Discharge Documenting (check all that apply): Patient Departure Patient Received Moderate/Deep Sedation with Procedure: No - Discharge Plan Condition: Stable Disposition: HOME Patient Education Materials: Hypotension (ED) Referrals: Mari Tolentino NP [Primary Care Provider] - Shamir Bose DO [Medical Doctor] - Additional Instructions: Follow up with cardiology Dr Bose for further evaluation of lightheadedness with rapid change in position from sitting to standing. Return to the ED for any new or worsening symptoms. - Billing Disposition and Condition Condition: STABLE Disposition: Home
[2018-08-26 20:24] VITALS: BP 196/91
== END 2018-08-26 20:23 | disposition home or self-care (01) ==
LOC: ED 15:44
DX: I95.1 Orthostatic hypotension (principal); I25.10 Atherosclerotic heart disease of native coronary artery without angina pectoris; E78.00 Pure hypercholesterolemia, unspecified; F17.210 Nicotine dependence, cigarettes, uncomplicated; Z88.1 Allergy status to other antibiotic agents; Z79.899 Other long term (current) drug therapy; Z95.5 Presence of coronary angioplasty implant and graft
CPT/HCPCS: 36415; 70450; 71045; 80053; 80061; 83605; 84484; 85025; 85610; 85730; 93005; 99283

== ENCOUNTER → 2018-09-03 08:50 | Day surgery (SDC) | payer MEDICARE, BC ==
[~2018-09-03 08:50] MED LIST changes: -Acetaminophen TAB* 325 MG ONE; +Atropine SYRINGE* 0.1 MG/ML 10 ML SYRINGE (1 MG) ONE; -Clopidogrel TAB* 75 MG ONE; -Clopidogrel TAB* 75 MG PO ONE; +Iodixanol 320 (CONTRAST) 100 ML SDV ONE; -NS 0.9% 1000 ML** 1,000 ML IV ONE; +ceFAZolin 1 GM* X ONE DOSE (AddVan) IVPB; -nitroGLYCERIN DRIP* 25,000 MCG/250 ML BTL ONE
[2018-09-03 14:48] VITALS: BP 147/74
== END | disposition home or self-care (01) ==
LOC: CHICATH 08:50
PROVIDERS: ATTEND Radiology Diagnostic Radiology
DX: I70.8 Atherosclerosis of other arteries (principal); I70.298 Other atherosclerosis of native arteries of extremities, other extremity; Z79.01 Long term (current) use of anticoagulants; E11.9 Type 2 diabetes mellitus without complications; I69.951 Hemiplegia and hemiparesis following unspecified cerebrovascular disease affecting right dominant side; I10 Essential (primary) hypertension; E78.00 Pure hypercholesterolemia, unspecified; Z85.810 Personal history of malignant neoplasm of tongue
CPT/HCPCS: 75736; 76937; 99156; 99157; A9270-GY; C1769; C1887; C1894; J0461; J0690; J1644; J2250; J2310; J3010; J3490

== ENCOUNTER 2019-04-19 19:45 | Emergency (ER) | payer MEDICARE, BC ==
--- OUTSIDE RECORDS SUMMARY | 2019-04-19 20:11 | XMS REPORT | Continuity of Care Document ---
:1945 External Reference #:[id number] Author Name Shamir Bose DO FACC (transmitted by agent of provider Lorrei Ann) Address [address] 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 Onset: 06/30/2018 Atherosclerosis of arteries of the [place] M.D. Onset: 06/30/2018 extremities Atherosclerosis of artery [place] M.D. Onset: 08/11/2018 Cerebral artery occlusion Oren Ho M.D. Onset: 03/26/2019 Essential hypertension Oren Ho M.D. Onset: 03/26/2019 Hyperlipidemia Oren Ho M.D. Onset: 03/26/2019 Tobacco use Oren Ho M.D. Onset: 03/26/2019 Social History Type Date Description Comments Sex Unknown Tobacco Use Start: Unknown Patient is a current cigarette smoker, smokes every day Smoking Status Reviewed: 03/26/19 Patient is a current cigarette smoker, smokes every day ETOH Use Rarely consumes alcohol Recreational Drug Use Never Used Drugs Tobacco Use Start: Unknown Heavy tobacco smoker (more than 10 cigarettes/day) Exercise Type/Frequency Exercises regularly weekly PT/OT, daily walking Allergies, Adverse Reactions, Alerts Active Allergies Reaction Severity Comments Date Baclofen 10/16/2017 Moxifloxacin 10/16/2017 Clarithromycin 10/16/2017 Medications Active Medications SIG Qnty Indications Ordering Provider Date Doxycycline Hyclate one tablet twice 14caps Bibi Romi, 03/24/2019 daily for 7 days. 100mg Capsules Doxycycline Hyclate one tablet twice 14caps Meagan 03/24/2019 daily for 7 days. AYDE Workman 100mg Capsules Acidophilus/Probiotic 1 tab PO qd Unknown 01/04/2019 100 Million Organisms Lisinopril 1 by mouth every 90tabs I10 Shamir Bose, 12/07/2018 10mg Tablets day DO FACC Resting Hand Splint as directed 1units I69.351 Rayshawn Meek MD 2018 Ezetimibe take one tablet 90tabs E78.5 Shamir Bose, 05/10/2018 10mg Tablets daily, use DO FACC generic Atorvastatin Calcium 1 by mouth at 90tabs I63.9 Shamir Bose, 2018 night DO FACC 80mg Tablets Aspirin 1 per day Unknown 81mg Tablets DR Mucinex As needed Unknown Tizanidine HCL take 1 tablet by 30tabs Unknown 4mg mouth every 8 Tablets hours as needed Tylenol 8 Hour 1 by mouth twice Unknown 650mg a day prn Tablets ER Melatonin 1 tablet po daily Unknown 1mg Tablets Magnesium Oxide Take One Tablet Unknown By Mouth Twice A 400(241.3Mg) mg Day Tablets Nystatin-Triamcinolon twice a day as Unknown e needed Miralax 17 grams with 8oz Unknown 3350NF Packet of water once a day as needed Senokot 2 tab by mouth at Unknown bedtime as needed Niacin 2 tabs by mouth Unknown 500mg Tablets at bedtime Zinc 1 tab by mouth Unknown 50mg every morning [place]-3 1 tab by mouth Unknown 1gm Capsules every morning Vitamin D-3 1 tab by mouth Unknown 400Iu every morning Super B Complex 1 tab by mouth Unknown every morning Tablets Prozac 1 by mouth every 90caps Unknown 20mg Capsules morning Plavix 1 by mouth every 90tabs Shamir Bose, 75mg Tablets morning DO FACC History Medications Vitamin C 1 tab PO qd Unknown 01/04/2019 - 03/25/2019 Colace 1 tab every po bid Unknown 01/04/2019 - 100mg prn for constipation 03/25/2019 Capsules Aspirin 81 Low 1 by mouth every day 90units I10 Shamir Bose, 2018 - Dose DO [facility] 03/25/2019 81mg Chewtabs Immunizations Description No Information Available Vital Signs Date Vital Result Comment 03/26/2019 10:57am Height 72 inches 6'0" Heart Rate 68 /min BP Systolic Sitting 126 mmHg BP Diastolic Sitting 82 mmHg 01/05/2019 10:44am Height 72 inches 6'0" Weight 163.38 lb w/ shoes Heart Rate 58 /min R. radial, regular BP Systolic Sitting 124 mmHg LA, reg cuff BP Diastolic Sitting 66 mmHg LA, reg cuff BMI (Body Mass Index) 22.2 kg/m2 Results Test Acquired Date Facility Test Result H/L Range Note Basic Metabolic 12/24/2018 [facility] Sodium 135 mmol/L Normal 135-145 [address] [place] [address] [phone] Potassium 4.3 mmol/L Normal 3.5-5.0 Chloride 101 mmol/L Normal 101-111 Co2 Carbon Dioxide 30 mmol/L Normal 22-32 Anion Gap 4 mmol/L Normal 2-11 Glucose 103 mg/dL High 70-100 Blood Urea Nitrogen 19 mg/dL Normal 6-24 Creatinine 1.15 mg/dL Normal 0.67-1.17 BUN/Creatinine Ratio 16.5 Normal 8-20 Calcium 9.4 mg/dL Normal 8.6-10.3 Egfr Non- 62.5 >60 Egfr 75.6 >60 1 1 Because ethnic data is not always readily [...] 15-29 5 Kidney failure <15 (or dialysis) Procedures Date Code Description Status 03/25/2019 54185 Interrogation Dev Loop Recorder Incl Physician Completed Analysis,Rev,Repor 02/22/2019 79798 Interrogation Dev Loop Recorder Incl Physician Completed Analysis,Rev,Repor 01/22/2019 50667 Implantable Cardio System Loop Recorder Sys Remota Data Completed [facility] 01/22/2019 29410 Interrogation Dev Loop Recorder Incl Physician Completed Analysis,Rev,Repor 12/22/2018 10050 Implantable Cardio System Loop Recorder Sys Remota Data Completed [facility] 12/22/2018 38096 Interrogation Dev Loop Recorder Incl Physician Completed Analysis,Rev,Repor 11/21/2018 65995 Implantable Cardio System Loop Recorder Sys Remota Data Completed [employer] 11/21/2018 35585 Interrogation Dev Loop Recorder Incl Physician Completed Analysis,Rev,Repor 10/21/2018 24365 Implantable Cardio System Loop Recorder Sys Remota Data Completed [facility] 10/21/2018 98969 Interrogation Dev Loop Recorder Incl Physician Completed Analysis,Rev,Repor Medical Devices Description No Information Available Encounters Type Date Location Provider Dx Diagnosis Office Visit 03/26/2019 Neurohospitalist Oren Ho, I69.354 Hemiplga 10:45a Clinic MDemetri 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 I10 Essential (primary) hypertension I70.298 Ot athscl [place] arteries of extremities, oth extremity Z72.0 Tobacco use E78.5 Hyperlipidemia, unspecified Office Visit 01/05/2019 10:15a [facility] Wilder Juarez I70.298 Ot athpal [place] [facility] Ar[place] M.D. 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 I10 Essential ( primary) Of Welding Process Engineer Juice, DO hypertension FACC I63.9 Cerebral infarction, unspecified Z95.818 Presence of other cardiac implants and grafts I70.298 Oth athscl [place] arteries of extremities, ot extremity E78.5 Hyperlipidemia, unspecified 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 I65.21 Occlusion and stenosis of right carotid artery I25.2 Old myocardial infarction I25.10 Athscl heart disease of [place] coronary artery w/o ang pctrs Z72.0 Tobacco use Office Visit 11/26/2018 11:45a Pulmonology And Bibi J98.4 Other disorders Sleep Services Of MD Romi of lung [facility] J47.9 Bronchiectasis, uncomplicated J44.9 Chronic obstructive pulmonary disease, unspecified Assessments Date Code Description Provider 03/26/2019 I69.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 03/26/2019 I70.298 Other atherosclerosis of [place] arteries Oren Ho M.D. of extremities, ot 03/26/2019 Z72.0 Tobacco use Oren Ho M.D. 03/26/2019 E78.5 Hyperlipidemia, unspecified Oren Ho M.D. 03/25/2019 I63.9 Cerebral infarction, unspecified Shamir SJagruti Guerrerono, DO FACC 03/25/2019 Z95.818 Presence of other cardiac implants and Shamir S. Bose, DO FACC grafts 02/22/2019 I63.9 Cerebral infarction, unspecified Shamir S. Bose, DO FACC 02/22/2019 Z95.818 Presence of other cardiac implants and Shamir S. Bose, DO FACC grafts 01/22/2019 I63.9 Cerebral infarction, unspecified Shamir S. Bose, DO FACC 01/22/2019 Z95.818 Presence of other cardiac implants and Shamir S. Bose, DO FACC grafts 01/05/2019 I70.298 Other atherosclerosis of [place] arteries [place] M.D. of extremities, oth 12/27/2018 I10 Essential (primary) hypertension Shamir S. Bose, DO FACC 12/27/2018 Z72.0 Tobacco use Shamir S. Bose, DO FACC 12/27/2018 I63.9 Cerebral infarction, unspecified Shamir S. Bose, DO FACC 12/27/2018 Z95.818 Presence of other cardiac implants and Shamir S. Bose, DO FACC grafts 12/27/2018 E78.5 Hyperlipidemia, unspecified Shamir S. Bose, DO FACC 12/27/2018 I69.351 Hemiplegia and hemiparesis following Shamir S. Bose, DO FACC cerebral infarction aff 12/27/2018 I25.2 Old myocardial infarction Shamir S. Bose, DO FACC 12/27/2018 I25.10 Atherosclerotic heart disease of [place] Shamir Reid. Bose, DO FACC coronary artery with 12/27/2018 J44.9 Chronic obstructive pulmonary disease, Shamir S. Bose, DO FACC unspecified 12/27/2018 I73.9 Peripheral vascular disease, unspecified Shamir S. Bose, DO FACC 12/22/2018 I63.9 Cerebral infarction, unspecified Shamir S. Bose, DO FACC 12/22/2018 Z95.818 Presence of other cardiac implants and Shamir S. Bose, DO FACC grafts 12/07/2018 I10 Essential (primary) hypertension Shamir S. Bose, DO FACC 12/07/2018 I63.9 Cerebral infarction, unspecified Shamir S. Bose, DO FACC 12/07/2018 Z95.818 Presence of other cardiac implants and Shamir S. Bose, DO FACC grafts 12/07/2018 I70.298 Other atherosclerosis of [place] arteries Shamir S. Bose , DO FACC of extremities, oth 12/07/2018 E78.5 Hyperlipidemia, unspecified Shamir S. Bose, DO FACC 12/07/2018 I69.351 Hemiplegia and hemiparesis following Shamir S. Bose, DO FACC cerebral infarction aff 12/07/2018 I65.21 Occlusion and stenosis of right carotid Shamir Bose, DO FAC artery 12/07/2018 I25.2 Old myocardial infarction Shamir Bose, DO FACC 12/07/2018 I25.10 Atherosclerotic heart disease of [place] Shamir Bose, DO FAC coronary artery with 12/07/2018 Z72.0 Tobacco use Shamir Bose DO FACC 11/26/2018 J98.4 Other disorders of lung Bibi Llanos MD 11/26/2018 J47.9 Bronchiectasis, uncomplicated Bibi Llanos MD 11/26/2018 J44.9 Chronic obstructive pulmonary disease, Bibi Llanos MD unspecified 11/21/2018 I63.9 Cerebral infarction, unspecified Shamir Bose, DO FACC 11/21/2018 Z95.818 Presence of other cardiac implants and Shamir Guerrerono, DO FACC grafts 10/21/2018 I63.9 Cerebral infarction, unspecified Shamir Bose, DO FACC 10/21/2018 Z95.818 Presence of other cardiac implants and Shamir Bose, DO FACC grafts Plan of Treatment Future Appointment(s):09/26/2019 2:15 pm - Oren Ho M.D. at [place] [facility]05/26/2019 1:45 pm - Bibi Llanos MD at [facility]03/26/2019 - Oren Ho M.D.I69.354 Hemiplegia and hemiparesis following cerebral infarction affecting left non- dominant sideI10 Essential (primary) hypertensionFollow up:Follow up in 6 ydsofeW91.298 Other atherosclerosis of [place] arteries of extremities, othZ72.0 Tobacco useE78.5 Hyperlipidemia, unspecified Functional Status Description No Information Available Mental Status Description No Information Available Referrals Description No Information Available
--- OUTSIDE RECORDS SUMMARY | 2019-04-19 20:11 | XMS REPORT | Continuity of Care Document ---
:1945 External Reference #:[id number] Author Name Oren Ho M.D. 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 Onset: 06/30/2018 Atherosclerosis of arteries of the [place] M.D. Onset: 06/30/2018 extremities Tobacco use Oren Ho M.D. Onset: 03/26/2019 Hyperlipidemia Oren Ho M.D. Onset: 03/26/2019 Essential hypertension Oren Ho M.D. Onset: 03/26/2019 Cerebral artery occlusion Oren Ho M.D. Onset: 03/26/2019 Atherosclerosis of artery [place] M.D. Onset: 08/11/2018 Social History Type Date Description Comments Sex [...] tab by mouth Unknown 50mg every morning [place]-3 1 tab by mouth Unknown 1gm Capsules [...] I10 Shamir Bose, 2018 - Dose DO FACC 03/25/2019 81mg Chewtabs Immunizations Description No Information [...] Result H/L Range Note Basic Metabolic 12/24/2018 [facility] Sodium 135 mmol/L Normal 135-145 [address] [place] [address] [phone] Potassium 4.3 mmol/L Normal 3.5-5.0 Chloride 101 [...] (or dialysis) Procedures Date Code Description Status 01/22/2019 30329 Implantable Cardio System Loop Recorder Sys Remota Data Completed [facility] 01/22/2019 90784 Interrogation Dev Loop Recorder Incl Physician Completed Analysis,Rev,Repor 12/22/2018 21542 Implantable Cardio System Loop Recorder Sys Remota Data Completed [employer] 12/22/2018 75692 Interrogation Dev Loop Recorder Incl Physician Completed Analysis,Rev,Repor 11/21/2018 58525 Implantable Cardio System Loop Recorder Sys Remota Data Completed [employer] 11/21/2018 76398 Interrogation Dev Loop Recorder Incl Physician Completed Analysis,Rev,Repor 10/21/2018 [id number] Implantable Cardio System Loop Recorder Sys Remota Data Completed [employer] 10/21/2018 08767 Interrogation Dev Loop Recorder Incl Physician Completed Analysis,Rev,Repor Medical Devices Description No Information Available Encounters Type Date Location Provider Dx Diagnosis Office Visit 03/26/2019 Neurohospitalist Oren Ho, I63.9 Cerebral 10:45a Clinic MDemetri infarction, unspecified I10 Essential (primary) hypertension I70.298 Ot athsc [place] arteries of extremities, ot extremity Z72.0 Tobacco use E78.5 Hyperlipidemia, unspecified Office Visit 01/05/2019 10:15a [facility] [place] I70.298 [facility] [place] [facility] [place] M.D. arteries of extremities, ot extremity Office Visit 12/27/2018 1:40p [place] Shamir S. I10 Essential Cardiology Of DO Juice (primary) [facility] hypertension Z72.0 Tobacco use I63.9 Cerebral infarction, unspecified Z95.818 Presence of other cardiac implants and grafts E78.5 Hyperlipidemia, unspecified 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 I25.2 Old myocardial infarction I25.10 Athscl heart disease of [place] coronary artery w/o ang pctrs J44.9 Chronic obstructive pulmonary disease, unspecified I73.9 Peripheral vascular disease, unspecified Office Visit 12/07/2018 11:20a [facility] Shamir S. I10 Essential ( primary) Of Lens Generating Machine Tender Bose, DO hypertension FACC I63.9 Cerebral infarction, unspecified Z95.818 Presence of other cardiac implants and grafts I70.298 Oth athscl [place] arteries of extremities, ot extremity E78.5 Hyperlipidemia, unspecified 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 I65.21 Occlusion and stenosis of right carotid artery I25.2 Old myocardial infarction I25.10 Athscl heart disease of [place] coronary artery w/o ang pctrs Z72.0 Tobacco use Office Visit 11/26/2018 11:45a Pulmonology And Bibi J98.4 Other disorders Sleep Services Of MD Romi of lung Lens Generating Machine Tender J47.9 Bronchiectasis, uncomplicated J44.9 Chronic obstructive pulmonary disease, unspecified Assessments Date Code Description Provider 03/26/2019 I63.9 Cerebral infarction, unspecified Oren Ho M.D. 03/26/2019 I10 Essential (primary) hypertension Oren Ho M.D. 03/26/2019 I70.298 Other atherosclerosis of [place] arteries Oren Ho M.D. of extremities, ot 03/26/2019 Z72.0 Tobacco use Oren Ho M.D. 03/26/2019 E78.5 Hyperlipidemia, unspecified Oren Ho M.D. 01/22/2019 I63.9 Cerebral infarction, unspecified Shamir SJagruti Bose, DO FACC 01/22/2019 Z95.818 Presence of other cardiac implants and Shamir SJagruti Guerrerono, DO FACC grafts 01/05/2019 I70.298 Other atherosclerosis of [place] arteries [place] M.D. of extremities, ot 12/27/2018 I10 Essential (primary) hypertension Shamir S. Bose, DO FACC 12/27/2018 Z72.0 Tobacco use Shamir S. Bose, DO FACC 12/27/2018 I63.9 Cerebral infarction, unspecified Shamir S. Bose, DO FACC 12/27/2018 Z95.818 Presence of other cardiac implants and Shamir S. Bose, DO FACC grafts 12/27/2018 E78.5 Hyperlipidemia, unspecified Shamir S. Bose, DO FACC 12/27/2018 I69.351 Hemiplegia and hemiparesis following Shamir Bose, DO FACC cerebral infarction aff 12/27/2018 I25.2 Old myocardial infarction Shamir Bose, DO FACC 12/27/2018 I25.10 Atherosclerotic heart disease of [place] Shamir Bose, DO FACC coronary artery with 12/27/2018 J44.9 Chronic obstructive pulmonary disease, Shamir Bose, DO FACC unspecified 12/27/2018 I73.9 Peripheral vascular disease, unspecified Shamir Bose, DO FACC 12/22/2018 I63.9 Cerebral infarction, unspecified Shamir Bose, DO FACC 12/22/2018 Z95.818 Presence of other cardiac implants and Shamir Bose, DO FACC grafts 12/07/2018 I10 Essential (primary) hypertension Shamir Bose, DO FACC 12/07/2018 I63.9 Cerebral infarction, unspecified Shamir Bose, DO FACC 12/07/2018 Z95.818 Presence of other cardiac implants and Shamir Bose, DO FACC grafts 12/07/2018 I70.298 Other atherosclerosis of [place] arteries Shamir Bose DO FACC of extremities, oth 12/07/2018 E78.5 Hyperlipidemia, unspecified Shamir Bose, DO FACC 12/07/2018 I69.351 Hemiplegia and hemiparesis following Shamir Bose, DO FACC cerebral infarction aff 12/07/2018 I65.21 Occlusion and stenosis of right carotid Shamir Bose DO FACC artery 12/07/2018 I25.2 Old myocardial infarction Shamir Bose, DO FACC 12/07/2018 I25.10 Atherosclerotic heart disease of [place] Shamir Bose, DO FACC coronary artery with 12/07/2018 Z72.0 Tobacco use Shamir Bose, DO FACC 11/26/2018 J98.4 Other disorders of lung Bibi Llanos MD 11/26/2018 J47.9 Bronchiectasis, uncomplicated Bibi Llanos MD 11/26/2018 J44.9 Chronic obstructive pulmonary disease, Bibi Llanos MD unspecified 11/21/2018 I63.9 Cerebral infarction, unspecified Shamir Bose, DO FACC 11/21/2018 Z95.818 Presence of other cardiac implants and Shamir S. Bose, DO FACC grafts 10/21/2018 I63.9 Cerebral infarction, unspecified Shamir S. Juice, DO FACC 10/21/2018 Z95.818 Presence of other cardiac implants and Shamir S. Bose, DO FACC grafts Plan of Treatment Future Appointment(s):09/26/2019 2:15 pm - Oren Ho M.D. at [place] [facility]05/26/2019 1:45 pm - Bibi Llanos MD at [facility]03/26/2019 - Oren Ho M.D.I63.9 Cerebral infarction, [id number] Essential (primary) hypertensionFollow up: Follow up in 6 oobueiL23.298 Other atherosclerosis of [place] arteries of extremities, othZ72.0 Tobacco useE78.5 Hyperlipidemia, unspecified Functional Status Description No Information Available Mental Status Description No Information Available Referrals Description No Information Available
--- OUTSIDE RECORDS SUMMARY | 2019-04-19 20:11 | XMS REPORT | Continuity of Care Document ---
:1945 External Reference #:[id number] Author Name Shamir Boes DO FACC (transmitted by agent of provider Lorrie Ann) Address [address] 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 Problems Active Problems Provider Date Hemiplegia of [...] tab by mouth Unknown 50mg every morning [place]-3 1 tab by mouth Unknown 1gm Capsules [...] I10 Shamir Bose, 2018 - Dose DO [facility] 03/25/2019 81mg Chewtabs Immunizations Description No Information [...] Result H/L Range Note Basic Metabolic 12/24/2018 [facility] Sodium 135 mmol/L Normal 135-145 [address] [place] [address] [phone] Potassium 4.3 mmol/L Normal 3.5-5.0 Chloride 101 [...] dialysis) Procedures Date Code Description Status 03/25/2019 94820 Interrogation Dev Loop Recorder Incl Physician Completed Analysis,Rev,Repor 02/22/2019 [id number] Interrogation Dev Loop Recorder Incl Physician Completed Analysis,Rev,Repor 01/22/2019 [id number] Implantable Cardio System Loop Recorder Sys Remota Data Completed Acquistio 01/22/2019 57032 Interrogation Dev Loop Recorder Incl Physician Completed Analysis,Rev,Repor 12/22/2018 [id number] Implantable Cardio System Loop Recorder Sys Remota Data Completed [facility]io 12/22/2018 53969 Interrogation Dev Loop Recorder Incl Physician Completed Analysis,Rev,Repor 11/21/2018 [id number] Implantable Cardio System Loop Recorder Sys Remota Data Completed [facility] 11/21/2018 94323 Interrogation Dev Loop Recorder Incl Physician Completed Analysis,Rev,Repor 10/21/2018 10566 Implantable Cardio System Loop Recorder Sys Remota Data Completed [facility] 10/21/2018 13540 Interrogation Dev Loop Recorder Incl Physician Completed Analysis,Rev,Repor Medical Devices Description No Information Available Encounters Type Date Location Provider Dx Diagnosis Office Visit 03/26/2019 Neurohospitalist Oren Ho, I69.354 Hemiplga 10:45a Clinic MDemetri 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 I10 Essential (primary) hypertension I70.298 Ot athscl elem arteries of extremities, oth extremity Z72.0 Tobacco use E78.5 Hyperlipidemia, unspecified Office Visit 01/05/2019 10:15a [facility] Wilder Juarez I70.298 Ot athtnl elem [facility] [place] M.D. 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 03/26/2019 I70.298 Other atherosclerosis of elem arteries Oren Ho M.D. of extremities, ot [...] FACC grafts 01/05/2019 I70.298 Other atherosclerosis of elem arteries [place] M.D. of extremities, oth [...] FACC 12/27/2018 I25.10 Atherosclerotic heart disease of elem Shamir Reid. Bose, DO FACC coronary artery [...] FACC grafts 12/07/2018 I70.298 Other atherosclerosis of elem arteries Shamir S. Bose , DO FACC of extremities, oth 12/07/2018 E78.5 Hyperlipidemia, unspecified Shamir S. Bose, DO FACC 12/07/2018 I69.351 Hemiplegia and hemiparesis following Shamir S. Bose, DO FACC cerebral infarction aff 12/07/2018 I65.21 Occlusion and stenosis of right carotid Shamir Bose, DO FAC artery 12/07/2018 I25.2 Old myocardial infarction Shamir Bose, DO FACC 12/07/2018 I25.10 Atherosclerotic heart disease of elem Shamir Bose, DO FAC coronary artery with [...] FACC grafts 10/21/2018 I63.9 Cerebral infarction, unspecified Sahmir Bose, DO FACC 10/21/2018 Z95.818 Presence of other cardiac implants and Shamir Bose, DO FACC grafts Plan of Treatment Future Appointment(s):09/26/2019 2:15 pm - Oren Ho M.D. at [facility]05/26/2019 1:45 pm - Bibi Llanos MD at [facility]03/26/2019 - Oren Ho M.D.I69.354 Hemiplegia and hemiparesis following cerebral infarction affecting left non- dominant sideI10 Essential (primary) hypertensionFollow up:Follow up in 6 ezxgtmM60.298 Other atherosclerosis of elem arteries of extremities, othZ72.0 Tobacco useE78.5 Hyperlipidemia, unspecified Functional Status Description No Information Available Mental Status Description No Information Available Referrals Description No Information Available
--- NOTE | 2019-04-19 20:25 | ED ---
Complex/Multi-Sys Presentation - HPI Summary HPI Summary: This patient is a 73 y/o male presenting to [facility] c/o weakness for the past 1 week, more significant in the past 2 days. Daughter reports patient was diagnosed with pneumonia by Dr. Llanos and was placed on antibiotics. Daughter states patient seemed to be doing better until the past few days when patient became weak and fatigued. Over the past 2 days daughter noted patent had difficulty walking secondary to weakness and last night patient asked for a wheelchair. Patient typically ambulates with a walker at home. Patient reports productive cough and nasal congestion. Denies runny nose, sore throat, chest pain, fevers, swelling in legs. Daughter has given the patient Sudafed and Mucinex with no relief. PMHx residual right sided weakness secondary to past CVA. Home Medications Medication Instructions Recorded Confirmed Type Cholecalciferol (Vitamin D3) 400 unit PO QAM 09/24/17 04/19/19 History [Vitamin D3] Clopidogrel TAB* [Plavix TAB*] 75 mg PO QAM 09/24/17 04/19/19 History FLUoxetine CAP* [Prozac CAP*] 20 mg PO QAM 09/24/17 04/19/19 History Atwater-3 Fatty Acids/Fish Oil 1 cap PO QAM 09/24/17 04/19/19 History [Atwater 3 1,000 mg Softgel] Magnesium Oxide TAB* [MagOx 400 400 mg PO BID #30 tab 10/29/17 04/19/19 Rx TAB*] Pseudoephedrine TAB* [Sudafed TAB*] 60 mg PO Q6H PRN 07/08/18 04/19/19 History Tizanidine HCl [Zanaflex] 4 mg PO Q8HR PRN 07/08/18 04/19/19 History Nystatin/Triamcinolone CR(NF) 1 applic TOPICAL BID PRN 07/09/18 04/19/19 History [Mycolog CREAM*] Acetaminophen [Acetaminophen ER] 650 mg PO BID PRN 08/26/18 04/19/19 History Niacin ER CAP* [Niaspan ER CAP*] 1,000 mg PO BEDTIME 08/26/18 04/19/19 History Sennosides [Senna Lax] 17.2 mg PO BEDTIME PRN 08/26/18 04/19/19 History Albuterol 2.5MG/3ML (0.083%)* 2.5 mg INH Q6H PRN 09/02/18 04/19/19 History [Ventolin 2.5 MG/3 ML NEB.LAMAR*] Atorvastatin* [Lipitor*] 80 mg PO QPM 09/02/18 04/19/19 History Docusate Sodium [Stool Softener] 100 mg PO BID PRN 09/02/18 04/19/19 History Ezetimibe 10 mg PO DAILY 09/02/18 04/19/19 History Melatonin 1 mg PO BEDTIME 09/02/18 04/19/19 History Polyethylene Glycol 3350* 17 gm PO DAILY PRN 09/02/18 04/19/19 History [Miralax*] Vitamin B Complex [Super B-50 1 each PO QAM 09/02/18 04/19/19 History Complex] Zinc 50 mg PO DAILY 09/02/18 04/19/19 History Aspirin [Aspir-Low] 1 tab PO DAILY 09/03/18 04/19/19 History - History Of Current Complaint Chief Complaint: EDWeakness Time Seen by Provider: 04/19/19 20:14 Hx Obtained From: Patient, Family/Director Of Surgery - Daughter Onset/Duration: Lasting Days, Still Present Timing: Days Severity Currently: Moderate Aggravating Factor(s): nothing Alleviating Factor(s): nothing Associated Signs And Symptoms: Positive: Weakness - generalized, Cough, Other - POSITIVE: nasal congestion, fatigue. NEGATIVE: runny nose, sore throat, swelling in legs.. Negative: Chest Pain, Fever - Allergies/Home Medications Allergies/Adverse Reactions: Allergies Allergy/AdvReac Type Severity Reaction Status Date / Time baclofen Allergy confusion Verified 04/19/19 19:57 clarithromycin Allergy Rash Verified 04/19/19 19:57 moxifloxacin Allergy Rash Verified 04/19/19 19:57 Home Medications: Home Medications Cholecalciferol (Vitamin D3) [Vitamin D3] 400 unit PO QAM 09/24/17 [History Confirmed 04/19/19] Clopidogrel TAB* [Plavix TAB*] 75 mg PO QAM 09/24/17 [History Confirmed 04/19/19 ] FLUoxetine CAP* [Prozac CAP*] 20 mg PO QAM 09/24/17 [History Confirmed 04/19/19] Atwater-3 Fatty Acids/Fish Oil [Atwater 3 1,000 mg Softgel] 1 cap PO QAM 09/24/17 [ History Confirmed 04/19/19] Magnesium Oxide TAB* [MagOx 400 TAB*] 400 mg PO BID #30 tab 10/29/17 [Rx Confirmed 04/19/19] Pseudoephedrine TAB* [Sudafed TAB*] 60 mg PO Q6H PRN 07/08/18 [History Confirmed 04/19/19] Tizanidine HCl [Zanaflex] 4 mg PO Q8HR PRN 07/08/18 [History Confirmed 04/19/19] Nystatin/Triamcinolone CR(NF) [Mycolog CREAM*] 1 applic TOPICAL BID PRN [History Confirmed 04/19/19] Acetaminophen [Acetaminophen ER] 650 mg PO BID PRN 08/26/18 [History Confirmed 04/19/19] Niacin ER CAP* [Niaspan ER CAP*] 1,000 mg PO BEDTIME 08/26/18 [History Confirmed 04/19/19] Sennosides [Senna Lax] 17.2 mg PO BEDTIME PRN 08/26/18 [History Confirmed ] Albuterol 2.5MG/3ML (0.083%)* [Ventolin 2.5 MG/3 ML NEB.LAMAR*] 2.5 mg INH Q6H PRN 09/02/18 [History Confirmed 04/19/19] Atorvastatin* [Lipitor*] 80 mg PO QPM 09/02/18 [History Confirmed 04/19/19] Docusate Sodium [Stool Softener] 100 mg PO BID PRN 09/02/18 [History Confirmed 04/19/19] Ezetimibe 10 mg PO DAILY 09/02/18 [History Confirmed 04/19/19] Melatonin 1 mg PO BEDTIME 09/02/18 [History Confirmed 04/19/19] Polyethylene Glycol 3350* [Miralax*] 17 gm PO DAILY PRN 09/02/18 [History Confirmed 04/19/19] Vitamin B Complex [Super B-50 Complex] 1 each PO QAM 09/02/18 [History Confirmed 04/19/19] Zinc 50 mg PO DAILY 09/02/18 [History Confirmed 04/19/19] Aspirin [Aspir-Low] 1 tab PO DAILY 09/03/18 [History Confirmed 04/19/19] PMH/Surg Hx/FS Hx/Imm Hx Endocrine/Hematology History: Denies: Hx Diabetes Cardiovascular History: Reports: Hx Coronary Artery Disease - STENTS PLACED, Hx Hypercholesterolemia, Other Cardiovascular Problems/Disorders Denies: Hx Angina, Hx Hypertension, Hx Myocardial Infarction, Hx Pacemaker/ ICD, Hx Valvular Heart Disease Respiratory History: Denies: Hx Asthma, Hx Chronic Obstructive Pulmonary Disease (COPD), Other Respiratory Problems/Disorders History: Denies: Hx Chronic Renal Failure, Hx Dialysis, Hx Renal Disease Musculoskeletal History: Reports: Other Musculoskeletal History - Right sided weakness from stroke Sensory History: Reports: Hx Contacts or Glasses Denies: Hx Hearing Aid Opthamlomology History: Reports: Hx Contacts or Glasses Neurological History: Reports: Hx CVA - Right side, Other Neuro Impairments/ Disorders - DAUGHTER STATES PATIENT WILL SEE NEUROLOGIST-DR. 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 CARDIAC STENTS-1999 Hx Anesthesia Reactions: No Infectious Disease History: No Infectious Disease History: Denies: Traveled Outside the [place] in Last 30 Days - Family History Known Family History: Positive: Diabetes - father Family History: Other family history reviewed and noncontributory - Social History Alcohol Use: Rare Hx Substance Use: No Substance Use Type: Reports: None Hx Tobacco Use: Yes Smoking Status (MU): Light Every Day Tobacco Smoker Amount Used/How Often: AT THE MOST 2 PPD X ON AND OFF 56 YEARS Have You Smoked in the Last Year: Yes Review of Systems Positive: Fatigue. Negative: Fever ENT: Other - POSITIVE: nasal congestion Negative: Sore Throat, Nasal Discharge Negative: Chest Pain Positive: Cough Negative: Edema - in legs Positive: Weakness - generalized All Other Systems Reviewed And Are Negative: Yes Physical Exam - Summary Physical Exam Summary: VITAL SIGNS: Reviewed. GENERAL: Patient is a well-developed and elderly male who seems to be weak. Patient is not in any acute respiratory distress. HEAD AND FACE: No signs of trauma. No ecchymosis, hematomas or skull depressions. No sinus tenderness. EYES: PERRLA, EOMI x 2, No injected conjunctiva, no nystagmus. EARS: Hearing grossly intact. Ear canals and tympanic membranes are within normal limits. MOUTH: Oropharynx within normal limits. NECK: Supple, trachea is midline, no adenopathy, no JVD, no carotid bruit, no c- spine tenderness, neck with full ROM. CHEST: Symmetric, no tenderness at palpation LUNGS: Crackles in both bases of the lungs. CVS: Regular rate and rhythm, S1 and S2 present, no murmurs or gallops appreciated. ABDOMEN: Soft, non-tender. No signs of distention. No rebound, no guarding, and no masses palpated. Bowel sounds are normal. EXTREMITIES: FROM in all major joints, no edema, no cyanosis or clubbing. NEURO: Alert and oriented x 3. No acute neurological deficits. Speech is normal and follows commands. Chronic right sided weakness secondary to past stroke. SKIN: Dry and warm GCS: 15 Triage Information Reviewed: Yes Vital Signs On Initial Exam: Initial Vitals Pulse Resp BP Pulse Ox 54 20 123/64 99 04/19/19 19:50 04/19/19 19:50 04/19/19 19:50 04/19/19 19:50 Vital Signs Reviewed: Yes Procedures - Sedation Patient Received Moderate/Deep Sedation with Procedure: No Diagnostics - Vital Signs Vital Signs Temp Pulse Resp BP Pulse Ox 04/19/19 20:00 58 20 100 04/19/19 19:53 54 12 99 04/19/19 19:52 97.8 F 58 16 123/64 95 04/19/19 19:50 54 20 123/64 99 - Laboratory Result Diagrams: 04/19/19 20:32 04/19/19 20:32 Lab Statement: Any lab studies that have been ordered have been reviewed, and results considered in the medical decision making process. - Radiology chest XR Radiology Interpretation Completed By: ED Physician Summary of Radiographic Findings: Pulmonary interstitial congestion. No infiltrates. Pending official radiology report. - EKG 20:23 Cardiac Rate: Bradycardia - at 52 bpm EKG Rhythm: Sinus Bradycardia Summary of EKG Findings: EKG at 20:23 shows sinus bradycardia at a rate of [address] elevations. This EKG was interpreted and reviewed by ED physician. Re-Evaluation - Re-Evaluation First Eval Re-Evaluation Time: 20:25 Comment: Patient is c/o chest cramps on left side. Complex Multi-Symp Course/Dx Assessment/Plan: This patient is a 73 y/o male presenting to [facility] c/o weakness for the past 1 week, more significant in the past 2 days. Daughter reports patient was diagnosed with pneumonia by Dr. Llanos and was placed on antibiotics. Daughter states patient seemed to be doing better until the past few days when patient became weak and fatigued. Over the past 2 days daughter noted patent had difficulty walking secondary to weakness and last night patient asked for a wheelchair. Patient typically ambulates with a walker at home. Patient reports productive cough and nasal congestion. Denies runny nose, sore throat, chest pain, fevers, swelling in legs. Daughter has given the patient Sudafed and Mucinex with no relief. PMHx residual right sided weakness secondary to past CVA. In the ED course the patient was placed in a wheelchair driver, IV access was obtained, IV fluids started. Past medical records reviewed. Blood test w/o a significant abnormality except for WBCs of 12.5, hemoglobin 10.6, hematocrit 30, absolute neutrophils 10.2, absolute monos 1.4, sodium 134, BUN is 27, glucose 69, CRP is 103. Chest x-ray impression: increased interstitial markings but no infiltrates appreciated. Therefore, the patients pneumonia has resolved. Influenza A and B are both negative. The patient reports that he is feeling well, he is not febrile, and he requests to be discharged home. The patients family members also agree therefore he will be discharged home with follow-up from his primary care physician. The patient is hemodynamically stable, alert and oriented 3. - Diagnoses Provider Diagnoses: Weakness Discharge ED - Sign-Out/Discharge Documenting (check all that apply): Patient Departure - Discharge home - Discharge Plan Condition: Stable Disposition: HOME Patient Education Materials: Weakness (ED) Referrals: Mari Tolentino NP [Primary Care Provider] - Additional Instructions: FOLLOW UP WITH YOUR PRIMARY CARE PROVIDER IN 2-3 DAYS. RETURN TO THE ED FOR ANY NEW OR WORSENING SYMPTOMS. - Billing Disposition and Condition Condition: STABLE Disposition: Home - Attestation Statements Document Initiated by Scribe: Yes Documenting Scribe: Macarena Pichardo Provider For Whom Scribe is Documenting (Include Credential): Vern Gordon MD Scribe Attestation: Macarena Pleitez, scribed for Vern Gordon MD on 04/23/19 at 1751. Scribe Documentation Reviewed: Yes Provider Attestation: The documentation as recorded by the scribe, Macarena Pichardo accurately reflects the service I personally performed and the decisions made by me, Vern Gordon MD Status of Scribe Document: Viewed
[2019-04-19 20:53] LABS: ABS Basophils 0.1 10^3/ul (0-0.2); ABS Eosinophils 0.4 10^3/ul (0-0.6); ABS Lymphocytes 1.4 10^3/ul (1.0-4.8); ABS Monocytes 1.4 10^3/ul (0-0.8); ABS Neutrophils 9.2 10^3/ul (1.5-7.7); Eosinophil % 3.3 %; Hematocrit 30 % (42-52); Hemoglobin 10.6 g/dL (14.0-18.0); Lymphocyte % 11.5 %; Mean Corpuscular HGB Conc 35 g/dL (31-36); Mean Corpuscular Hemoglobin 38 pg (27-31); Mean Corpuscular Volume 108 fL (80-94); Mean Platelet Volume 7.8 fL (7.4-10.4); Nucleated Red Blood Cells % 0.1; Platelet Count 273 10^3/uL (150-450); Red Blood Count 2.78 10^6 /uL (4.18-5.48); Red Cell Distribution Width 14 % (10-15); White Blood Count 12.5 10^3/uL (3.5-10.8)
[2019-04-19 21:01] LABS: Activated Partial Thrombo Time 33.4 seconds (26.0-38.0); INR 1.12 (0.82-1.09)
[2019-04-19 21:12] LABS: ALT 33 U/L (7-52); AST 26 U/L (13-39); Albumin 3.6 g/dL (3.2-5.2); Albumin/Globulin Ratio 1.2 (1-3); Alcohol < 10 mg/dL (<10); Alkaline Phosphatase 67 U/L (34-104); Anion Gap 6 mmol/L (2-11); BUN/Creatinine Ratio 24.3 (8-20); Blood Urea Nitrogen 27 mg/dL (6-24); CO2 Carbon Dioxide 25 mmol/L (22-32); Calcium 9.5 mg/dL (8.6-10.3); Chloride 103 mmol/L (101-111); Creatine Kinase 110 U/L (10-223); EGFR African American 78.8 (>60); EGFR Non-African American 65.1 (>60); Globulin 3.1 g/dL (2-4); Glucose 69 mg/dL (70-100); Magnesium 2.1 mg/dL (1.9-2.7); Sodium 134 mmol/L (135-145); Total Protein 6.7 g/dL (6.4-8.9); Troponin I 0.01 ng/mL (<0.03)
[2019-04-19 21:24] LABS: TSH (Thyroid Stimulating Horm) 5.38 mcIU/mL (0.34-5.60)
[2019-04-19 21:53] LABS: Influenza A Molecular Negative (Negative); Influenza B Molecular Negative (Negative)
[2019-04-19 21:53] LABS: Urine Appearance Cloudy; Urine Bilirubin Negative (Negative); Urine Blood Negative (Negative); Urine Color Amber; Urine Glucose Negative (Negative); Urine Ketones Negative (Negative); Urine Nitrite Negative (Negative); Urine Protein 2+(100 mg/dL) (Negative); Urine Specific Gravity 1.024 (1.010-1.030); Urine Urobilinogen Negative (Negative)
[2019-04-19 21:55] LABS: Urine Bacteria Absent (Absent); Urine Red Blood Cell Trace(0-2/hpf) (Absent); Urine White Blood Cell Trace(0-5/hpf) (Absent)
[2019-04-19 22:12] VITALS: BP 127/57
== END 2019-04-19 22:12 | disposition home or self-care (01) ==
LOC: ED 19:45
DX: R53.1 Weakness (principal); R05 Cough; R09.89 Other specified symptoms and signs involving the circulatory and respiratory systems; R53.83 Other fatigue; R00.1 Bradycardia, unspecified; I45.10 Unspecified right bundle-branch block; Z95.5 Presence of coronary angioplasty implant and graft; Z88.1 Allergy status to other antibiotic agents; Z88.8 Allergy status to other drugs, medicaments and biological substances; Z86.73 Personal history of transient ischemic attack (TIA), and cerebral infarction without residual deficits; F17.200 Nicotine dependence, unspecified, uncomplicated
CPT/HCPCS: 36415; 70450; 71046; 80053; 80320; 81003; 81015; 82550; 83605; 83735; 83880; 84443; 84484; 85025; 85610; 85730; 86140; 87086; 93005; 99283; G0480

== ENCOUNTER 2019-12-06 18:07 | Inpatient (IN) ==
[2019-12-06] MEDS ORDERED: NS 0.9% 1000 ml BAG 1,000 ML IV ONE (18:26)
[2019-12-06 19:20] LABS: Hematocrit 22 % (42-52); Hemoglobin 7.5 g/dL (14.0-18.0); Mean Corpuscular HGB Conc 33 g/dL (31-36); Mean Corpuscular Hemoglobin 33 pg (27-31); Mean Corpuscular Volume 97 fL (80-94); Mean Platelet Volume 6.7 fL (7.4-10.4); Platelet Count 453 10^3/uL (150-450); Red Cell Distribution Width 17 % (10-15)
[2019-12-06 19:28] LABS: Troponin I 0.01 ng/mL (<0.03)
[2019-12-06 19:39] LABS: Albumin/Globulin Ratio 0.7 (1-3); BUN/Creatinine Ratio 20.9 (8-20); Calcium 8.8 mg/dL (8.6-10.3); EGFR African American 79.4 (>60); EGFR Non-African American 65.6 (>60); Globulin 4.1 g/dL (2-4); Total Bilirubin 0.4 mg/dL (0.2-1.0); Total Protein 7.1 g/dL (6.4-8.9)
[2019-12-06] MEDS ORDERED: cefTRIAXone 1 gm/50 mL NS BAG 1 GM/50 ML BAG IVPB ONE (19:55)
[2019-12-06] MEDS ORDERED: DOXYcycline 100 MG in NS 0.9% 250 ml 250 ML IVPB ONE (19:55)
[2019-12-06 20:11] LABS: TSH Ultra Thyroid Stim Horm 3.65 mcIU/mL (0.34-5.60)
[2019-12-06 20:13] LABS: Acanthocytes 2+; Schistocytes 1+
[2019-12-06 20:16] LABS: ABS Basophils 0.1 10^3/ul (0-0.2); ABS Eosinophils 0.2 10^3/ul (0-0.6); ABS Lymphocytes 0.5 10^3/ul (1.0-4.8); ABS Monocytes 0.9 10^3/ul (0-0.8); ABS Neutrophils 7.4 10^3/ul (1.5-7.7); Lymphocyte % 5.2 %
[2019-12-06 20:17] LABS: Polychromasia 1+
[2019-12-06] MEDS ORDERED: NS 0.9% 250 ml 250 ML ONE (20:32)
[2019-12-06 21:08] LABS: Urine Appearance Cloudy; Urine Bilirubin Negative (Negative); Urine Blood Negative (Negative); Urine Color Amber; Urine Glucose Negative (Negative); Urine Ketones Trace (Negative); Urine Nitrite Negative (Negative); Urine Protein 2+(100 mg/dL) (Negative); Urine Specific Gravity 1.019 (1.010-1.030); Urine Urobilinogen Negative (Negative)
[2019-12-06] MEDS ORDERED: Albuterol 2.5mg/3 ml (0.083%) NEB.SOLN INH PRN (21:17)
[2019-12-06 21:23] LABS: Urine Bacteria Absent (Absent); Urine Red Blood Cell 1+(3-5/hpf) (Absent); Urine White Blood Cell Trace(0-5/hpf) (Absent)
[2019-12-06] MEDS ORDERED: Triamcinolone 0.025% OINT 15 GM TUBE TOPICAL PRN (23:40)
[2019-12-07] MEDS: Pantoprazole VIAL 40 MG VIAL IV SCH ×3 (00:30→21:34)
[2019-12-07] MEDS: NS 0.9% 1000 ml BAG 1,000 ML IV SCH ×2 (00:30→16:05)
[2019-12-07 01:16] LABS: Hematocrit 23 % (42-52); Hemoglobin 7.4 g/dL (14.0-18.0)
[2019-12-07 07:36] LABS: Anion Gap 6 mmol/L (2-11); BUN/Creatinine Ratio 18.1 (8-20); Blood Urea Nitrogen 17 mg/dL (6-24); CO2 Carbon Dioxide 21 mmol/L (22-32); Calcium 8.2 mg/dL (8.6-10.3); Chloride 107 mmol/L (101-111); EGFR African American 95.2 (>60); EGFR Non-African American 78.7 (>60); Glucose 90 mg/dL (70-100); Potassium 4.3 mmol/L (3.5-5.0); Sodium 134 mmol/L (135-145)
[2019-12-07 07:41] LABS: % Iron Saturation 8 % (15-55); Iron < 20 ug/dL (50-212); Total Iron Binding Capacity 245 mcg/dL (250-450); Transferrin 175 mg/dL (203-362); Unsaturated Iron Binding < 230 ug/dL
[2019-12-07 08:06] LABS: Vitamin B12 > 1450 pg/mL (180-914)
[2019-12-07] MEDS: ZINC 50 MG PO SCH (08:51)
[2019-12-07] MEDS: CMCS:OMEGA-3 FATTY ACID 1000 mg(NF) PO SCH ×2 (08:51→21:34)
[2019-12-07 08:55] LABS: Ferritin 37.8 ng/mL (24-336)
[2019-12-07] MEDS: DOXYcycline 100 MG in NS 0.9% 250 ml 250 ML IVPB SCH (12:42)
[2019-12-07] MEDS ORDERED: cefTRIAXone 1 gm/50 mL NS BAG 1 GM/50 ML BAG IVPB SCH (20:00)
[2019-12-08] MEDS: DOXYcycline 100 MG in NS 0.9% 250 ml 250 ML IVPB SCH ×2 (00:39→13:17)
[2019-12-08 06:34] LABS: ABS Basophils 0.1 10^3/ul (0-0.2); ABS Eosinophils 0.3 10^3/ul (0-0.6); ABS Lymphocytes 0.8 10^3/ul (1.0-4.8); ABS Monocytes 0.7 10^3/ul (0-0.8); ABS Neutrophils 5.4 10^3/ul (1.5-7.7); Eosinophil % 4.6 %; Hematocrit 21 % (42-52); Hemoglobin 6.9 g/dL (14.0-18.0); Lymphocyte % 10.8 %; Mean Corpuscular HGB Conc 33 g/dL (31-36); Mean Corpuscular Hemoglobin 32 pg (27-31); Mean Corpuscular Volume 98 fL (80-94); Mean Platelet Volume 7.1 fL (7.4-10.4); Platelet Count 410 10^3/uL (150-450); Red Blood Count 2.18 10^6 /uL (4.18-5.48); Red Cell Distribution Width 17 % (10-15); White Blood Count 7.3 10^3/uL (3.5-10.8)
[2019-12-08 06:55] LABS: BUN/Creatinine Ratio 11.2 (8-20); Calcium 8.1 mg/dL (8.6-10.3); EGFR African American 101.4 (>60); EGFR Non-African American 83.8 (>60); Potassium 4.2 mmol/L (3.5-5.0)
[2019-12-08] MEDS: NS 0.9% 1000 ml BAG 1,000 ML IV SCH ×2 (06:58→13:20)
[2019-12-08] MEDS: CMCS:OMEGA-3 FATTY ACID 1000 mg(NF) PO SCH ×2 (09:13→23:02)
[2019-12-08] MEDS: Pantoprazole VIAL 40 MG VIAL IV SCH ×2 (09:13→23:01)
[2019-12-08] MEDS: ZINC 50 MG PO SCH (09:13)
[2019-12-08 15:56] LABS: Hematocrit 27 % (42-52); Hemoglobin 8.9 g/dL (14.0-18.0); Mean Corpuscular HGB Conc 33 g/dL (31-36); Mean Corpuscular Hemoglobin 32 pg (27-31); Mean Corpuscular Volume 96 fL (80-94); Platelet Count 408 10^3/uL (150-450); Red Blood Count 2.82 10^6 /uL (4.18-5.48); Red Cell Distribution Width 17 % (10-15); White Blood Count 7.2 10^3/uL (3.5-10.8)
[2019-12-08] MEDS ORDERED: Midazolam 10 mg/10 ml VIAL 1 mg/ml 10 ml VIAL (10 mg) ONE (17:00)
[2019-12-08] MEDS ORDERED: fentaNYL 100 mcg/2 ml 50 MCG/ML VIAL ONE (17:00)
[2019-12-08] MEDS ORDERED: PEG 3000 GI LAVAGE 1 GALLON PO ONE (19:00)
[2019-12-09] MEDS ORDERED: PEG 3000 GI LAVAGE 1 GALLON PO ONE (06:00)
[2019-12-09 06:20] LABS: ABS Basophils 0.1 10^3/ul (0-0.2); ABS Eosinophils 0.3 10^3/ul (0-0.6); ABS Lymphocytes 0.6 10^3/ul (1.0-4.8); ABS Monocytes 0.8 10^3/ul (0-0.8); ABS Neutrophils 8.6 10^3/ul (1.5-7.7); Eosinophil % 2.9 %; Hematocrit 26 % (42-52); Hemoglobin 8.6 g/dL (14.0-18.0); Lymphocyte % 5.8 %; Mean Corpuscular HGB Conc 34 g/dL (31-36); Mean Corpuscular Hemoglobin 32 pg (27-31); Mean Corpuscular Volume 95 fL (80-94); Mean Platelet Volume 7.3 fL (7.4-10.4); Nucleated Red Blood Cells % 0.1; Platelet Count 438 10^3/uL (150-450); Red Blood Count 2.69 10^6 /uL (4.18-5.48); Red Cell Distribution Width 17 % (10-15); White Blood Count 10.4 10^3/uL (3.5-10.8)
[2019-12-09] MEDS: NS 0.9% 1000 ml BAG 1,000 ML IV SCH (06:26)
[2019-12-09 06:50] LABS: BUN/Creatinine Ratio 11.3 (8-20); Calcium 8.2 mg/dL (8.6-10.3); EGFR African American 114.7 (>60); EGFR Non-African American 94.8 (>60); Potassium 3.9 mmol/L (3.5-5.0)
[2019-12-09] MEDS: CMCS:OMEGA-3 FATTY ACID 1000 mg(NF) PO SCH ×2 (09:18→20:47)
[2019-12-09] MEDS: Pantoprazole VIAL 40 MG VIAL IV SCH ×2 (09:20→20:49)
[2019-12-09] MEDS: Iron Sucrose 200 MG in NS 0.9% 100 ml BAG 100 ML IVPB SCH (09:23)
[2019-12-09] MEDS: ZINC 50 MG PO SCH (09:41)
[2019-12-09 15:29] LABS: Body Fluid Source Pleural Fluid
[2019-12-09 16:46] LABS: Body Fluid Mono 12 %
[2019-12-09] MEDS ORDERED: fentaNYL 100 mcg/2 ml 50 MCG/ML VIAL ONE (17:08)
[2019-12-09] MEDS ORDERED: Midazolam 10 mg/10 ml VIAL 1 mg/ml 10 ml VIAL (10 mg) ONE (17:08)
[2019-12-09 21:57] LABS: Albumin 2.6 g/dL (3.2-5.2); Albumin/Globulin Ratio 0.7 (1-3); Globulin 3.8 g/dL (2-4); Indirect Bilirubin 0.5 mg/dL (0.3-1.0); Total Bilirubin 0.7 mg/dL (0.2-1.0); Total Protein 6.4 g/dL (6.4-8.9)
[2019-12-10] MEDS: NS 0.9% 1000 ml BAG 1,000 ML IV SCH (00:29)
[2019-12-10 06:06] LABS: Hematocrit 21 % (42-52); Hemoglobin 6.9 g/dL (14.0-18.0); Mean Corpuscular HGB Conc 33 g/dL (31-36); Mean Corpuscular Hemoglobin 32 pg (27-31); Mean Corpuscular Volume 95 fL (80-94); Mean Platelet Volume 7.3 fL (7.4-10.4); Platelet Count 372 10^3/uL (150-450); Red Blood Count 2.16 10^6 /uL (4.18-5.48); Red Cell Distribution Width 17 % (10-15); White Blood Count 9.7 10^3/uL (3.5-10.8)
[2019-12-10 06:22] LABS: BUN/Creatinine Ratio 12.9 (8-20); Calcium 7.8 mg/dL (8.6-10.3); EGFR African American 96.4 (>60); EGFR Non-African American 79.6 (>60); Potassium 3.7 mmol/L (3.5-5.0)
[2019-12-10] MEDS: Pantoprazole VIAL 40 MG VIAL IV SCH ×2 (09:27→20:56)
[2019-12-10] MEDS: CMCS:OMEGA-3 FATTY ACID 1000 mg(NF) PO SCH ×2 (09:27→20:56)
[2019-12-10] MEDS: Iron Sucrose 200 MG in NS 0.9% 100 ml BAG 100 ML IVPB SCH (09:57)
[2019-12-10] MEDS: ZINC 50 MG PO SCH (10:42)
[2019-12-10 19:32] LABS: Hematocrit 26 % (42-52); Hemoglobin 8.3 g/dL (14.0-18.0); Mean Corpuscular HGB Conc 33 g/dL (31-36); Mean Corpuscular Hemoglobin 31 pg (27-31); Mean Corpuscular Volume 94 fL (80-94); Mean Platelet Volume 7.3 fL (7.4-10.4); Platelet Count 372 10^3/uL (150-450); Red Blood Count 2.73 10^6 /uL (4.18-5.48); Red Cell Distribution Width 18 % (10-15); White Blood Count 10.8 10^3/uL (3.5-10.8)
[2019-12-11 08:12] LABS: ABS Basophils 0.1 10^3/ul (0-0.2); ABS Eosinophils 0.1 10^3/ul (0-0.6); ABS Lymphocytes 0.6 10^3/ul (1.0-4.8); ABS Monocytes 1.1 10^3/ul (0-0.8); Eosinophil % 1.2 %; Hematocrit 23 % (42-52); Hemoglobin 7.7 g/dL (14.0-18.0); Lymphocyte % 5.6 %; Mean Corpuscular HGB Conc 34 g/dL (31-36); Mean Corpuscular Hemoglobin 31 pg (27-31); Mean Corpuscular Volume 94 fL (80-94); Mean Platelet Volume 6.9 fL (7.4-10.4); Nucleated Red Blood Cells % 0.2; Platelet Count 354 10^3/uL (150-450); Red Blood Count 2.46 10^6 /uL (4.18-5.48); Red Cell Distribution Width 18 % (10-15)
[2019-12-11 08:29] LABS: BUN/Creatinine Ratio 12.5 (8-20); EGFR African American 102.7 (>60); EGFR Non-African American 84.9 (>60); Potassium 3.8 mmol/L (3.5-5.0)
[2019-12-11] MEDS: Iron Sucrose 200 MG in NS 0.9% 100 ml BAG 100 ML IVPB SCH (09:14)
[2019-12-11] MEDS: CMCS:OMEGA-3 FATTY ACID 1000 mg(NF) PO SCH (09:33)
[2019-12-11] MEDS: ZINC 50 MG PO SCH (09:33)
[2019-12-11 11:44] VITALS: BP 157/65
[2019-12-11 12:15] LABS: Hematocrit 23 % (42-52); Hemoglobin 7.8 g/dL (14.0-18.0); Mean Corpuscular HGB Conc 34 g/dL (31-36); Mean Corpuscular Hemoglobin 32 pg (27-31); Mean Corpuscular Volume 93 fL (80-94); Mean Platelet Volume 7.2 fL (7.4-10.4); Platelet Count 358 10^3/uL (150-450); Red Blood Count 2.48 10^6 /uL (4.18-5.48); Red Cell Distribution Width 18 % (10-15); White Blood Count 10.7 10^3/uL (3.5-10.8)
[2019-12-12 11:02] LABS: Lactate Dehydrogenase, BF 865 U/L
[2019-12-12 12:43] LABS: Fluid Type, Glucose PLEURAL; Glucose, BF 91 mg/dL
[2019-12-12 12:46] LABS: Albumin, BF 1.7 g/dL; Fluid Type, Albumin PLEURAL
[2019-12-12 12:47] LABS: Fluid Type, Protein, Total PLEURAL
== END 2019-12-11 15:30 | disposition home health service (06) | DRG 377 ==
LOC: ED 18:07 → SSU 21:53
PROVIDERS: ADMIT Hospitalist; ATTEND Internal Medicine